=== PATIENT | female | born 1980 | race American Indian/Alaskan Native ===

== ENCOUNTER 2021-02-07 13:23 | Inpatient (IN) | payer MEDICAID ==
[2021-02-07] MEDS ORDERED: SODIUM CHLORIDE 0.9% 500 ML 500 ML IV ONE (13:42)
[2021-02-07] MEDS ORDERED: ACETAMINOPHEN 500 MG TAB PO STA (13:42)
[2021-02-07 14:19] LABS: Basophils % (Auto) 0.1 % (0.0-1.8); Eosinophils % (Auto) 0.1 % (0.0-4.3); Hemoglobin 11.9 gm/dl (10.1-14.3); Lymphocytes # (Auto) 0.7 K/mm3 (1.2-5.4); Lymphocytes % (Auto) 14.1 % (13.4-35.0); Mean Corpuscular HGB Conc 34 % (30-34); Mean Corpuscular Volume 95 fl (79-97); Monocytes # (Auto) 0.7 K/mm3 (0.0-0.8); Monocytes % (Auto) 13.4 % (0.0-7.3); Platelet Count 331 K/mm3 (140-440); Red Blood Count 3.68 M/mm3 (3.65-5.03); Red Cell Distribution Width 18.3 % (13.2-15.2)
[2021-02-07] MEDS ORDERED: CEFEPIME/NS 2 GM/100 ML 2 GM/100 ML BAG IV ONE (14:19)
[2021-02-07] MEDS ORDERED: dexAMETHasone 4 MG/ML VIAL IV ONE (14:23)
[2021-02-07 14:30] LABS: INR 1.01 (0.87-1.13)
--- NOTE | 2021-02-07 14:35 | Emergency Department Report ---
ED General Adult HPI - General Chief complaint: Dyspnea/Respdistress Stated complaint: PNEMONIA Time Seen by Provider: 02/07/21 14:13 Source: patient, family Mode of arrival: Wheelchair Limitations: Physical Limitation - History of Present Illness Initial comments: Patient presents to the emergency department the chief complaint increased shortness of breath after being diagnosed with Covid on Wednesday. Patient states that what she received her Covid diagnosis a CAT scan was ordered by the physician which showed that she had pneumonia. Patient states that over the last week her symptoms have progressively become worse to the point that she cannot walk short distances without being short of breath. Patient is in moderate respiratory distress as I am obtaining the history. Patient's O2 sats 89% on room air placed on 2 L nasal cannula. Patient is not able to speak in complete sentences due to respiratory distress -: Gradual Severity scale (0 -10): 8 Quality: aching Consistency: constant Improves with: none Worsens with: movement Associated Symptoms: denies other symptoms Treatments Prior to Arrival: none - Related Data Home Medications Medication Instructions Recorded Confirmed Last Taken Pnv,Calcium 72/Iron,Carb/Folic 1 tab PO QDAY 01/22/14 01/22/14 01/20/14 [ Plus Iron Tablet] Allergies Allergy/AdvReac Type Severity Reaction Status Date / Time No Known Allergies Allergy Verified 01/20/14 08:58 ED Review of Systems ROS: Stated complaint: PNEMONIA Other details as noted in HPI Comment: All other systems reviewed and negative Constitutional: denies: chills, fever Eyes: denies: eye pain, eye discharge, vision change ENT: denies: ear pain, throat pain Respiratory: shortness of breath. denies: cough, wheezing Cardiovascular: denies: chest pain, palpitations Endocrine: no symptoms reported Gastrointestinal: denies: abdominal pain, nausea, diarrhea Genitourinary: denies: urgency, dysuria, discharge Musculoskeletal: denies: back pain, joint swelling, arthralgia Skin: denies: rash, lesions Neurological: denies: headache, weakness, paresthesias Psychiatric: denies: anxiety, depression Hematological/Lymphatic: denies: easy bleeding, easy bruising ED Past Medical Hx - Past Medical History Previous Medical History?: No Hx Hypertension: No Hx Congestive Heart Failure: No Hx Diabetes: No Hx Deep Vein Thrombosis: No Hx Renal Disease: No Hx Sickle Cell Disease: No Hx Seizures: No Hx Asthma: No Hx COPD: No Hx HIV: No - Surgical History Past Surgical History?: No - Social History Smoking Status: Unknown if ever smoked - Medications Home Medications: Home Medications Medication Instructions Recorded Confirmed Last Taken Type Pnv,Calcium 72/Iron,Carb/Folic 1 tab PO QDAY 01/22/14 01/22/14 01/20/14 History [ Plus Iron Tablet] ED Physical Exam - General Limitations: Physical Limitation General appearance: alert, in distress - Head Head exam: Present: atraumatic, normocephalic - Eye Eye exam: Present: normal appearance - ENT ENT exam: Present: mucous membranes moist - Neck Neck exam: Present: normal inspection - Respiratory Respiratory exam: Present: respiratory distress, rales, accessory muscle use, decreased breath sounds - Cardiovascular Cardiovascular Exam: Present: normal rhythm, tachycardia. Absent: systolic murmur, diastolic murmur, rubs, gallop - GI/Abdominal GI/Abdominal exam: Present: soft, normal bowel sounds. Absent: distended, tenderness - Extremities Exam Extremities exam: Present: normal inspection - Back Exam Back exam: Present: normal inspection - Neurological Exam Neurological exam: Present: alert, oriented X3, CN II-XII intact - Psychiatric Psychiatric exam: Present: normal affect, normal mood - Skin Skin exam: Present: warm, dry, intact, normal color. Absent: rash ED Course Vital Signs 02/07/21 02/07/21 02/07/21 13:28 13:53 13:58 Temperature 103.0 F H Pulse Rate 140 H Respiratory 22 18 Rate Blood Pressure 110/64 110/73 O2 Sat by Pulse 90 Oximetry 02/07/21 02/07/21 02/07/21 14:01 14:15 14:19 Temperature 103 F H Pulse Rate 134 H 128 H 135 H Respiratory 51 H 31 H 30 H Rate Blood Pressure 110/73 106/67 107/64 O2 Sat by Pulse 96 91 89 Oximetry 02/07/21 02/07/21 02/07/21 14:31 14:45 15:01 Temperature Pulse Rate 123 H 119 H 116 H Respiratory 37 H 19 20 Rate Blood Pressure 107/64 114/72 114/70 O2 Sat by Pulse 97 97 97 Oximetry 02/07/21 02/07/21 02/07/21 15:15 15:31 15:36 Temperature Pulse Rate 116 H 114 H Respiratory 31 H 25 H Rate Blood Pressure 114/70 100/63 O2 Sat by Pulse 95 98 96 Oximetry ED Medical Decision Making - Lab Data Result diagrams: 02/07/21 14:07 02/07/21 14:07 Lab Results 02/07/21 02/07/21 02/07/21 Range/Units 14:07 14:07 14:07 WBC 5.0 (4.5-11.0) K/mm3 RBC 3.68 (3.65-5.03) M/mm3 Hgb 11.9 (10.1-14.3) gm/dl Hct 35.0 (30.3-42.9) % MCV 95 (79-97) fl MCH 32 (28-32) pg MCHC 34 (30-34) % RDW 18.3 H (13.2-15.2) % Plt Count 331 (140-440) K/mm3 Lymph % (Auto) 14.1 (13.4-35.0) % [place] % (Auto) 13.4 H (0.0-7.3) % Eos % (Auto) 0.1 (0.0-4.3) % Baso % (Auto) 0.1 (0.0-1.8) % Lymph # (Auto) 0.7 L (1.2-5.4) K/mm3 [place] # (Auto) 0.7 (0.0-0.8) K/mm3 Eos # (Auto) 0.0 (0.0-0.4) K/mm3 Baso # (Auto) 0.0 (0.0-0.1) K/mm3 Seg Neutrophils % 72.3 H (40.0-70.0) % Seg Neutrophils # 3.6 (1.8-7.7) K/mm3 PT 13.8 (12.2-14.9) Sec. INR 1.01 (0.87-1.13) ABG pH (7.320-7.450) POC ABG pCO2 (32.0-48.0) mmHg POC ABG pO2 (83-108) mmHg POC ABG HCO3 ABG O2 Saturation (0-100) POC ABG Base Excess ABG Hemoglobin (12.0-17.5) ABG Oxyhemoglobin (94-98) ABG Methemoglobin (0.0-1.5) ABG Sodium (136.0-145.0) mmol/L ABG Potassium (3.40-4.50) mmol/L ABG Chloride (98-107) mmol/L ABG Glucose (65-95) mg/dL VBG pH (7.320-7.420) Carboxyhemoglobin (0.5-1.5) FiO2 % Sodium 139 (137-145) mmol/L Potassium 4.1 (3.6-5.0) mmol/L Chloride 101.9 (98-107) mmol/L Carbon Dioxide 23 (22-30) mmol/L Anion Gap 18 mmol/L BUN 29 H (7-17) mg/dL Creatinine 1.4 H (0.6-1.2) mg/dL Estimated GFR 51 ml/min BUN/Creatinine Ratio 21 % Glucose 119 H (65-100) mg/dL Lactic Acid (0.7-2.0) mmol/L Calcium 9.0 (8.4-10.2) mg/dL Total Bilirubin 0.30 (0.1-1.2) mg/dL AST 40 (5-40) units/L ALT 16 (7-56) units/L Alkaline Phosphatase 73 (35-129) units/L Total Protein 7.7 (6.3-8.2) g/dL Albumin 3.7 L (3.9-5) g/dL Albumin/Globulin Ratio 0.9 % HCG, Qual (Negative) Arterial Blood Glucose (65-95) mg/dL 02/07/21 02/07/21 02/07/21 Range/Units 14:07 14:07 14:07 WBC (4.5-11.0) K/mm3 RBC (3.65-5.03) M/mm3 Hgb (10.1-14.3) gm/dl Hct (30.3-42.9) % MCV (79-97) fl MCH (28-32) pg MCHC (30-34) % RDW (13.2-15.2) % Plt Count (140-440) K/mm3 Lymph % (Auto) (13.4-35.0) % [place] % (Auto) (0.0-7.3) % Eos % (Auto) (0.0-4.3) % Baso % (Auto) (0.0-1.8) % Lymph # (Auto) (1.2-5.4) K/mm3 [place] # (Auto) (0.0-0.8) K/mm3 Eos # (Auto) (0.0-0.4) K/mm3 Baso # (Auto) (0.0-0.1) K/mm3 Seg Neutrophils % (40.0-70.0) % Seg Neutrophils # (1.8-7.7) K/mm3 PT (12.2-14.9) Sec. INR (0.87-1.13) ABG pH (7.320-7.450) POC ABG pCO2 (32.0-48.0) mmHg POC ABG pO2 (83-108) mmHg POC ABG HCO3 ABG O2 Saturation (0-100) POC ABG Base Excess ABG Hemoglobin (12.0-17.5) ABG Oxyhemoglobin (94-98) ABG Methemoglobin (0.0-1.5) ABG Sodium (136.0-145.0) mmol/L ABG Potassium (3.40-4.50) mmol/L ABG Chloride (98-107) mmol/L ABG Glucose (65-95) mg/dL VBG pH 7.465 H (7.320-7.420) Carboxyhemoglobin (0.5-1.5) FiO2 % Sodium (137-145) mmol/L Potassium (3.6-5.0) mmol/L Chloride (98-107) mmol/L Carbon Dioxide (22-30) mmol/L Anion Gap mmol/L BUN (7-17) mg/dL Creatinine (0.6-1.2) mg/dL Estimated GFR ml/min BUN/Creatinine Ratio % Glucose (65-100) mg/dL Lactic Acid 1.10 (0.7-2.0) mmol/L Calcium (8.4-10.2) mg/dL Total Bilirubin (0.1-1.2) mg/dL AST (5-40) units/L ALT (7-56) units/L Alkaline Phosphatase (35-129) units/L Total Protein (6.3-8.2) g/dL Albumin (3.9-5) g/dL Albumin/Globulin Ratio % HCG, Qual Negative (Negative) Arterial Blood Glucose (65-95) mg/dL 08/06/21 Range/Units 14:47 WBC (4.5-11.0) K/mm3 RBC (3.65-5.03) M/mm3 Hgb (10.1-14.3) gm/dl Hct (30.3-42.9) % MCV (79-97) fl MCH (28-32) pg MCHC (30-34) % RDW (13.2-15.2) % Plt Count (140-440) K/mm3 Lymph % (Auto) (13.4-35.0) % [place] % (Auto) (0.0-7.3) % Eos % (Auto) (0.0-4.3) % Baso % (Auto) (0.0-1.8) % Lymph # (Auto) (1.2-5.4) K/mm3 [place] # (Auto) (0.0-0.8) K/mm3 Eos # (Auto) (0.0-0.4) K/mm3 Baso # (Auto) (0.0-0.1) K/mm3 Seg Neutrophils % (40.0-70.0) % Seg Neutrophils # (1.8-7.7) K/mm3 PT (12.2-14.9) Sec. INR (0.87-1.13) ABG pH 7.437 (7.320-7.450) POC ABG pCO2 30.7 L (32.0-48.0) mmHg POC ABG pO2 92.6 (83-108) mmHg POC ABG HCO3 20.2 ABG O2 Saturation 96.6 (0-100) POC ABG Base Excess -3.3 ABG Hemoglobin 9.5 L (12.0-17.5) ABG Oxyhemoglobin 96.0 (94-98) ABG Methemoglobin 0.3 (0.0-1.5) ABG Sodium 139.4 (136.0-145.0) mmol/L ABG Potassium 3.7 (3.40-4.50) mmol/L ABG Chloride 108.0 H (98-107) mmol/L ABG Glucose 115 H (65-95) mg/dL VBG pH (7.320-7.420) Carboxyhemoglobin 0.3 L (0.5-1.5) FiO2 % 32.0 Sodium (137-145) mmol/L Potassium (3.6-5.0) mmol/L Chloride (98-107) mmol/L Carbon Dioxide (22-30) mmol/L Anion Gap mmol/L BUN (7-17) mg/dL Creatinine (0.6-1.2) mg/dL Estimated GFR ml/min BUN/Creatinine Ratio % Glucose (65-100) mg/dL Lactic Acid (0.7-2.0) mmol/L Calcium (8.4-10.2) mg/dL Total Bilirubin (0.1-1.2) mg/dL AST (5-40) units/L ALT (7-56) units/L Alkaline Phosphatase (35-129) units/L Total Protein (6.3-8.2) g/dL Albumin (3.9-5) g/dL Albumin/Globulin Ratio % HCG, Qual (Negative) Arterial Blood Glucose 115 H (65-95) mg/dL - EKG Data -: EKG Interpreted by Me EKG shows normal: sinus rhythm Rate: tachycardia - Radiology Data Radiology results: report reviewed - Medical Decision Making Patient placed on high flow O2 Patient given IV antibiotics Patient given IV steroids Critical Care Time: Yes Critical care time in (mins) excluding proc time.: 35 Critical care attestation.: If time is entered above; I have spent that time in minutes in the direct care of this critically ill patient, excluding procedure time. ED Disposition Clinical Impression: Pneumonia due to COVID-19 virus Disposition: DC-09 OP ADMIT IP TO THIS HOSP Is pt being admited?: Yes Does the pt Need Aspirin: No Condition: Fair Instructions: Bacterial Pneumonia (ED)
[2021-02-07 14:37] LABS: Albumin 3.7 g/dL (3.9-5)
--- NOTE | 2021-02-07 15:21 | XRay Report ---
XR chest 1V ap INDICATION / CLINICAL INFORMATION: possible Sepsis. COMPARISON: None available. FINDINGS: SUPPORT DEVICES: None. HEART /PULMONARY VASCULATURE: No significant abnormality. LUNGS / PLEURA: Dense airspace consolidation present within the right mid to lower lung with mild air space disease also seen in the left lower lobe. No sizable pleural effusion. No pneumothorax. ADDITIONAL FINDINGS: No significant additional findings. IMPRESSION: Bibasilar airspace opacities, greater on the right, compatible with pneumonia. Signer Name: Miguel Angel Figueroa MD Signed: 02/07/2021 3:16 PM Workstation Name: [id number]
--- NOTE | 2021-02-07 15:55 | History and Physical Report ---
History of Present Illness Chief complaint: I just cannot breathe History of present illness: 40 YO Female with No PMH presents to ED for evaluation. Pt reports "I just cannot breathe". Patient states that she has experienced shortness of breath over the past 5 days with progressively worsening symptoms over the same timeframe. Patient states that she was diagnosed with coronavirus on Wednesday. Patient knowledges worsening symptoms over the past several days. Patient transported to [facility] via private vehicle for further care and evaluation of the aforementioned symptoms. Patient acknowledges fatigue, malaise, body aches, shortness of breath, subjective fever, as well as decreased exercise tolerance. Patient is unable to speak in complete sentences due to shortness of breath. Patient is tripoding, using accessory muscles to breathe. The patient was seen and evaluated in the emergency department. All lab and imaging studies reviewed. Patient found to have a pulse oximetry of 84% on exertion which is consistent with acute hypoxemic respiratory failure. Chest x-ray revealed bilateral pneumonia. Patient admitted to medical floor and initiated on pneumonia protocol as well as coronavirus protocol. Patient treated with high flow supplemental oxygen with mild improvement in symptoms. Infectious disease team consulted in ED. Pulmonary team consulted in ED. Patient use head gestures chest pain, palpitation, skin rash, recent ill contacts, known exposure to COVID-19. No prior admission for review. No medication listed at time of admission for reconciliation. Past History Past Medical History: No medical history, other (Reviewed) Past Surgical History: No surgical history, Other (Reviewed) Social history: single. denies: smoking, alcohol abuse, prescription drug abuse Family history: hypertension Medications and Allergies Allergies Allergy/AdvReac Type Severity Reaction Status Date / Time No Known Allergies Allergy Verified 01/20/14 08:58 Home Medications Medication Instructions Recorded Confirmed Last Taken Type Pnv,Calcium 72/Iron,Carb/Folic 1 tab PO QDAY 01/22/14 01/22/14 01/20/14 History [ Plus Iron Tablet] Review of Systems Constitutional: fever, fatigue, weakness, malaise, no weight loss, no weight gain Ears, nose, mouth and throat: no ear pain, no ear discharge, no nasal congestion Breasts: no change in shape, no swelling, no mass Cardiovascular: shortness of breath, no chest pain, no orthopnea, no palpitations Respiratory: cough, excessive sputum, shortness of breath, no hemoptysis Gastrointestinal: no abdominal pain, no nausea, no vomiting, no diarrhea Genitourinary Female: no pelvic pain, no flank pain, no menorrhagia, no dysuria, no urinary frequency, no urgency Rectal: no pain, no incontinence, no bleeding Musculoskeletal: no neck stiffness, no neck pain, no shooting arm pain, no arm numbness/tingling, no low back pain Integumentary: no rash, no pruritis, no redness, no sores, no wounds Neurological: no transient paralysis, no paralysis, no weakness, no parathesias, no numbness Psychiatric: no anxiety, no memory loss, no change in sleep habits, no sleep disturbances, no insomnia, no hypersomnia, no change in appetite Endocrine: no cold intolerance, no heat intolerance, no polyphagia, no excessive thirst, no polydipsia, no polyuria Hematologic/Lymphatic: no easy bruising, no easy bleeding, no lymphadenopathy Allergic/Immunologic: no urticaria, no allergic rhinitis, no wheezing, no persistent infections Exam - Constitutional Vitals: Temp Pulse Resp BP Pulse Ox 103 F H 114 H 25 H 100/63 96 02/07/21 14:19 02/07/21 15:31 02/07/21 15:31 02/07/21 15:31 02/07/21 15:36 General appearance: Present: mild distress - EENT Eyes: Present: PERRL ENT: hearing intact, clear oral mucosa - Neck Neck: Present: supple, normal ROM - Respiratory Respiratory effort: labored, accessory muscle use, stridor Respiratory: bilateral: diminished, rhonchi - Cardiovascular Heart Sounds: Present: S1 & S2. Absent: rub, click - Extremities Extremities: pulses symmetrical, No edema Peripheral Pulses: within normal limits - Abdominal General gastrointestinal: Present: soft, non-tender, non-distended, normal bowel sounds Female genitourinary: Present: normal - Integumentary Integumentary: Present: clear, warm, dry - Musculoskeletal Musculoskeletal: gait normal, strength equal bilaterally - Psychiatric Psychiatric: appropriate mood/affect, intact judgment & insight - Neurologic Neurologic: CNII-XII intact, moves all extremities Results - Labs CBC & Chem 7: 02/07/21 14:07 02/07/21 14:07 Labs: Abnormal lab results 02/07/21 02/07/21 02/07/21 Range/Units 14:07 14:07 14:07 RDW 18.3 H (13.2-15.2) % [place] % (Auto) 13.4 H (0.0-7.3) % Lymph # (Auto) 0.7 L (1.2-5.4) K/mm3 Seg Neutrophils % 72.3 H (40.0-70.0) % POC ABG pCO2 (32.0-48.0) mmHg ABG Hemoglobin (12.0-17.5) ABG Chloride (98-107) mmol/L ABG Glucose (65-95) mg/dL VBG pH 7.465 H (7.320-7.420) Carboxyhemoglobin (0.5-1.5) BUN 29 H (7-17) mg/dL Creatinine 1.4 H (0.6-1.2) mg/dL Glucose 119 H (65-100) mg/dL Albumin 3.7 L (3.9-5) g/dL Arterial Blood Glucose (65-95) mg/dL 02/07/21 Range/Units 14:47 RDW (13.2-15.2) % [place] % (Auto) (0.0-7.3) % Lymph # (Auto) (1.2-5.4) K/mm3 Seg Neutrophils % (40.0-70.0) % POC ABG pCO2 30.7 L (32.0-48.0) mmHg ABG Hemoglobin 9.5 L (12.0-17.5) ABG Chloride 108.0 H (98-107) mmol/L ABG Glucose 115 H (65-95) mg/dL VBG pH (7.320-7.420) Carboxyhemoglobin 0.3 L (0.5-1.5) BUN (7-17) mg/dL Creatinine (0.6-1.2) mg/dL Glucose (65-100) mg/dL Albumin (3.9-5) g/dL Arterial Blood Glucose 115 H (65-95) mg/dL Assessment and Plan - Patient Problems (1) Acute hypoxemic respiratory failure Current Visit: Yes Status: Acute Plan to address problem: Chest x-ray, high flow supplemental oxygen, nebulizer therapy, pulse oximetry, noninvasive positive pressure ventilation as clinically indicated if patient is unable to maintain pulse oximetry on high flow submental oxygen. Pulmonary team consulted. (2) Pneumonia Current Visit: Yes Status: Acute Plan to address problem: Pneumonia protocol: Chest x-ray, CBC, CMP, IV antibiotic therapy, supplemental oxygen, pulse oximetry, nebulizer therapy. (3) Suspected 2019 novel coronavirus infection Current Visit: Yes Status: Acute Plan to address problem: Coronavirus protocol: IV antibiotic therapy, IV steroid therapy, supplemental oxygen, pulse oximetry, vitamin C therapy, vitamin D therapy, zinc therapy, prophylactic anticoagulation (4) Acute kidney injury (MAUREEN) with acute tubular necrosis (ATN) Current Visit: Yes Status: Acute Plan to address problem: BMP, IV fluid resuscitation therapy as clinically indicated, repeat BMP in a.m., monitor urine output every shift (5) DVT prophylaxis Current Visit: Yes Status: Acute Plan to address problem: SCD to bilateral lower extremities while in bed, prophylactic anticoagulation
[2021-02-07] MEDS: AZITHROMYCIN/NS 500 MG/250 ML 500 MG/250 ML BAG IV SCH ×2 (16:25→18:00)
[2021-02-07] MEDS: cefTRIAXone/NS 2 GM/100 ML 2 GM/100 ML BAG IV SCH ×2 (16:25→18:02)
[2021-02-07] MEDS ORDERED: ONDANSETRON 4 MG/2 ML INJ IV PRN (16:30)
[2021-02-07] MEDS ORDERED: HYDROmorphone 1 MG/1 ML INJ IV PRN (16:30)
[2021-02-07] MEDS ORDERED: ACETAMINOPHEN 325 MG TAB PO PRN (16:30)
[2021-02-07] MEDS ORDERED: ALBUTEROL 2.5 MG/3 ML NEBU IH PRN (17:00)
[2021-02-07] MEDS: CHOLECALCIFEROL (VIT D3) 1000 UNIT (25 mcg) TAB PO SCH (18:07)
[2021-02-07] MEDS: methylPREDNISolone Sod Succinate 40 MG/1 ML INJ IV SCH (22:13)
[2021-02-07] MEDS: ASCORBIC ACID 500 MG TAB PO SCH (22:14)
[2021-02-07] MEDS: ZINC SULFATE 220 MG CAP PO SCH (22:14)
[2021-02-08 05:11] LABS: Hematocrit 34.6 % (30.3-42.9); Hemoglobin 11.4 gm/dl (10.1-14.3); Mean Corpuscular HGB Conc 33 % (30-34); Mean Corpuscular Volume 96 fl (79-97); Platelet Count 280 K/mm3 (140-440); Red Blood Count 3.59 M/mm3 (3.65-5.03); Red Cell Distribution Width 18.3 % (13.2-15.2)
[2021-02-08 05:33] LABS: Alanine Aminotransferase 17 units/L (7-56); Albumin 3.3 g/dL (3.9-5); BUN/Creatinine Ratio 31; Blood Urea Nitrogen 25 mg/dL (7-17); Calcium 8.3 mg/dL (8.4-10.2); Hemolysis Index 43
[2021-02-08] MEDS: methylPREDNISolone Sod Succinate 40 MG/1 ML INJ IV SCH (05:39)
[2021-02-08 06:59] LABS: Anisocytosis 1+; Platelet Estimate Consistent w Auto; Total Cells Counted 100
--- NOTE | 2021-02-08 09:22 | Consultation ---
History of Present Illness History of present illness: pt with no signif pmhx who comes in shortness of breath with pleurisy. She was in her usoh until yesterday and had sob. She came to er in distress started on o2 and meds. She feels better but still short of breath at rest Past History Past Medical History: No medical history, other (Reviewed) Past Surgical History: No surgical history, Other (Reviewed) Social history: single. denies: smoking, alcohol abuse, prescription drug abuse Family history: hypertension Medications and Allergies Allergies Allergy/AdvReac Type Severity Reaction Status Date / Time No Known Allergies Allergy Verified 01/20/14 08:58 Home Medications Medication Instructions Recorded Confirmed Last Taken Type Pnv,Calcium 72/Iron,Carb/Folic 1 tab PO QDAY 01/22/14 02/07/21 01/20/14 History [ Plus Iron Tablet] Active Meds: Active Medications Acetaminophen (Acetaminophen 325 Mg Tab) 650 mg PO Q4H PRN PRN Reason: Pain MILD(1-3)/Fever >100.5/TORRES Albuterol (Albuterol 2.5 Mg/3 Ml Nebu) 2.5 mg IH Q4HRT PRN PRN Reason: Shortness Of Breath Ascorbic Acid (Ascorbic Acid 500 Mg Tab) 500 mg PO BID [facility] Last Admin: 02/07/21 22:14 Dose: 500 mg Documented by: Cholecalciferol (Cholecalciferol (Vit D3) 1000 Unit (25 Mcg) Tab) 1,000 unit PO QDAY [facility] Last Admin: 02/07/21 18:07 Dose: 1,000 unit Documented by: Dexamethasone (Dexamethasone 4 Mg/Ml Vial) 6 mg IV Q24HR FOSTER Stop: 02/16/21 10:01 Hydromorphone HCl (Hydromorphone 1 Mg/1 Ml Inj) 0.5 mg IV Q12H PRN PRN Reason: Pain , Severe (7-10) Ceftriaxone Sodium (Rocephin/Ns 2 Gm/100 Ml) 2 gm in 100 mls @ 200 mls/hr IV Q24H FOSTER; Protocol Stop: 02/11/21 17:29 Last Infusion: 02/07/21 19:44 Dose: Infused Documented by: Azithromycin (Zithromax/Ns) 500 mg in 250 mls @ 250 mls/hr IV Q24H [facility]; Protocol Stop: 02/11/21 17:29 Last Infusion: 02/07/21 19:45 Dose: Infused Documented by: Ondansetron HCl (Ondansetron 4 Mg/2 Ml Inj) 4 mg IV Q8H PRN PRN Reason: Nausea And Vomiting Oxycodone/Acetaminophen (Oxycodone /Acetaminophen 5-325mg Tab) 1 tab PO Q12H PRN PRN Reason: Pain, Moderate (4-6) Sodium Chloride (Sodium Chloride 0.9% 10 Ml Flush Syringe) 10 ml IV BID [facility] Last Admin: 02/07/21 22:13 Dose: 10 ml Documented by: Sodium Chloride (Sodium Chloride 0.9% 10 Ml Flush Syringe) 10 ml IV PRN PRN PRN Reason: LINE FLUSH Zinc Sulfate (Zinc Sulfate 220 Mg Cap) 220 mg PO BID [facility] Last Admin: 02/07/21 22:14 Dose: 220 mg Documented by: Review of Systems Constitutional: fatigue, weakness, poor appetite Respiratory: shortness of breath, dyspnea on exertion Physical Examination Vital signs: Vital Signs Temp Pulse Resp BP Pulse Ox 103.0 F H 140 H 22 110/64 90 02/07/21 13:28 02/07/21 13:28 02/07/21 13:28 02/07/21 13:28 02/07/21 13:28 General appearance: no acute distress Eyes: non-icteric ENT: oropharynx dry Neck: supple Effort: normal Ascultation: Bilateral: diminished breath sounds Cardiovascular: regular rate and rhythm Gastrointestinal: normoactive bowel sounds, soft, non-tender Integumentary: normal Extremities: no cyanosis Results - Laboratory Findings CBC and BMP: 02/08/21 04:37 02/08/21 04:37 ABG ABG pH 7.437 (7.320-7.450) 02/07/21 14:47 POC ABG pCO2 30.7 mmHg (32.0-48.0) L 02/07/21 14:47 POC ABG pO2 92.6 mmHg (83-108) 02/07/21 14:47 POC ABG HCO3 20.2 02/07/21 14:47 ABG O2 Saturation 96.6 (0-100) 02/07/21 14:47 PT/INR, D-dimer PT 13.8 Sec. (12.2-14.9) 02/07/21 14:07 INR 1.01 (0.87-1.13) 02/07/21 14:07 Abnormal lab findings: Abnormal Labs 02/07/21 02/07/21 02/07/21 14:07 14:07 14:07 WBC RBC RDW 18.3 H [place] % (Auto) 13.4 H Lymph # (Auto) 0.7 L Seg Neutrophils % 72.3 H Seg Neutrophils # Man Lymphocytes # (Manual) POC ABG pCO2 ABG Hemoglobin ABG Chloride ABG Glucose VBG pH 7.465 H Carboxyhemoglobin Carbon Dioxide BUN 29 H Creatinine 1.4 H Glucose 119 H Calcium Albumin 3.7 L Arterial Blood Glucose 02/07/21 02/08/21 02/08/21 14:47 04:37 04:37 WBC 1.9 L* RBC 3.59 L RDW 18.3 H [place] % (Auto) Lymph # (Auto) Seg Neutrophils % Seg Neutrophils # Man 1.3 L Lymphocytes # (Manual) 0.5 L POC ABG pCO2 30.7 L ABG Hemoglobin 9.5 L ABG Chloride 108.0 H ABG Glucose 115 H VBG pH Carboxyhemoglobin 0.3 L Carbon Dioxide 20 L BUN 25 H Creatinine Glucose 216 H Calcium 8.3 L Albumin 3.3 L Arterial Blood Glucose 115 H - Diagnostic Findings Chest x-ray: report reviewed, image reviewed Assessment and Plan - Patient Problems (1) Acute hypoxemic respiratory failure Current Visit: Yes Status: Acute (2) Acute kidney injury (MAUREEN) with acute tubular necrosis (ATN) Current Visit: Yes Status: Acute (3) Pneumonia Current Visit: Yes Status: Acute (4) Pneumonia due to COVID-19 virus Current Visit: Yes Status: Acute
[2021-02-08 09:58] LABS: Bacteria,Urine 1+ /HPF (Negative); Bilirubin,Urine NEG (Negative); Blood,Urine LG (Negative); Color,Urine Amber (Yellow); Urobilinogen,Urine < 2.0 mg/dL (<2.0)
[2021-02-08] MEDS ORDERED: CHOLECALCIFEROL (VIT D3) 400 UNIT TAB PO SCH (10:00)
[2021-02-08] MEDS: dexAMETHasone 4 MG/ML VIAL IV SCH (11:34)
[2021-02-08] MEDS: ZINC SULFATE 220 MG CAP PO SCH ×2 (11:34→22:56)
[2021-02-08] MEDS: CHOLECALCIFEROL (VIT D3) 1000 UNIT (25 mcg) TAB PO SCH (11:34)
--- NOTE | 2021-02-08 15:06 | Progress Note ---
Assessment and Plan 35-year-old -[place] female who recently diagnosed with COVID-19 presented to the hospital with shortness of breath associated with fatigue malaise and fever. Assessment and plan: -- Acute hypoxemic respiratory failure Due to COVID-19 pneumonia Continue high flow O2 and wean off as tolerated Schedule nebulizer breathing treatment and empiric steroid Pulmonology on board --COVID-19 pneumonia -CXR shows patchy parenchymal disease which represent atypical pneumonia -S/p dexamethasone, azithromycin and cefepime in the ED -Placed on dexamethasone for total 10 days and remdesivir total 5 days -Infectious disease consulted, appreciate recommendations -Droplet/contact isolation -Continue SPO2 monitoring -Supplemental oxygen as needed -Pulmonary hygiene -Prone to sleep -Vitamin C, vitamin D, zinc -Anticoagulation per protocol -Lasix IV as needed to prevent pulmonary edema --Acute kidney injury (MAUREEN) with vasomotor nephropathy Creatinine was 1.4 on admission now resolved with IV fluid Continue to follow renal function -- DVT prophylaxis SCD to bilateral lower extremities while in bed, prophylactic anticoagulation per protocol Daily clinical course: 02/09/21: Patient tested positive for COVID-19, will initiate remdesivir for 5 days and dexamethasone for 10 days, ID consulted, pulmonology consulted. Continue supportive care, follow COVID-19 protocol and inflammatory markers to assess disease progression/improvement Subjective Date of service: 02/08/21 Interval history: Patient seen and examined. Medical records and medication list reviewed. No acute event overnight noted by the RN. Patient on high flow O2. Patient is tolerating diet. Covid test is positive Discussed plan of care at bedside with patient. Objective - Exam Narrative Exam: Limited physical exam due to COVID-19 pandemic to minimize transmission of the disease and to preserve PPE. Vital reviewed and stable. GENERAL: well-developed well-nourished -[place] female lying on bed appeared to be in no discomfort. HEENT: Normocephalic. Atraumatic. NECK: Supple. CHEST/LUNGS: breathing on high flow O2 HEART/CARDIOVASCULAR: Heart rate stable on telemetry ABDOMEN: Visibly not distended SKIN: There is no rash NEURO: No focal motor deficit. Follows command. MUSCULOSKELETAL: No joint effusion EXTRIMITY: No swelling, no cyanosis or clubbing. PSYCH: Cooperative. - Constitutional Vitals: Vital Signs - 12hr 02/08/21 02/08/21 02/08/21 04:01 05:01 06:01 Pulse Rate 66 98 H 62 Respiratory 18 22 26 H Rate Blood Pressure 117/84 108/79 108/77 O2 Sat by Pulse 93 98 99 Oximetry 02/08/21 02/08/21 02/08/21 07:01 08:00 08:01 Pulse Rate 72 62 Respiratory 25 H 26 H Rate Blood Pressure 108/78 112/77 O2 Sat by Pulse 98 98 98 Oximetry 02/08/21 02/08/21 02/08/21 09:01 10:01 11:01 Pulse Rate 63 67 74 Respiratory 30 H 32 H 20 Rate Blood Pressure 117/85 114/83 109/83 O2 Sat by Pulse 97 96 96 Oximetry 02/08/21 02/08/21 02/08/21 12:01 13:01 14:01 Pulse Rate 84 74 84 Respiratory 22 32 H 30 H Rate Blood Pressure 110/79 116/83 111/80 O2 Sat by Pulse 94 94 93 Oximetry - Labs CBC & Chem 7: 02/08/21 04:37 02/09/21 08:25 Labs: Abnormal lab results 02/07/21 02/08/21 02/08/21 Range/Units 14:47 04:37 04:37 WBC 1.9 L* (4.5-11.0) K/mm3 RBC 3.59 L (3.65-5.03) M/mm3 RDW 18.3 H (13.2-15.2) % Seg Neutrophils # Man 1.3 L (1.8-7.7) K/mm3 Lymphocytes # (Manual) 0.5 L (1.2-5.4) K/mm3 POC ABG pCO2 30.7 L (32.0-48.0) mmHg ABG Hemoglobin 9.5 L (12.0-17.5) ABG Chloride 108.0 H (98-107) mmol/L ABG Glucose 115 H (65-95) mg/dL Carboxyhemoglobin 0.3 L (0.5-1.5) Carbon Dioxide 20 L (22-30) mmol/L BUN 25 H (7-17) mg/dL Glucose 216 H (65-100) mg/dL Calcium 8.3 L (8.4-10.2) mg/dL Albumin 3.3 L (3.9-5) g/dL Arterial Blood Glucose 115 H (65-95) mg/dL
[2021-02-08] MEDS: ASCORBIC ACID 500 MG TAB PO SCH ×2 (17:25→22:55)
[2021-02-08] MEDS: cefTRIAXone/NS 2 GM/100 ML 2 GM/100 ML BAG IV SCH (17:25)
[2021-02-08] MEDS: AZITHROMYCIN/NS 500 MG/250 ML 500 MG/250 ML BAG IV SCH (17:45)
[2021-02-08] MEDS: REMDESIVIR 200 MG in SODIUM CHLORIDE 0.9% 250ML 250 ML IV ONE ×2 (19:16→21:11)
[2021-02-08 19:28] LABS: Alanine Aminotransferase 16 units/L (7-56); Albumin 3.1 g/dL (3.9-5); Blood Urea Nitrogen 25 mg/dL (7-17); Calcium 8.9 mg/dL (8.4-10.2); Hemolysis Index 5
[2021-02-08 19:30] LABS: BUN/Creatinine Ratio 36
[2021-02-08] MEDS ORDERED: guaiFENesin 200 MG TAB PO PRN (21:21)
[2021-02-08] MEDS: SODIUM CHLORIDE 0.9% 50 ML IVPB IV SCH (22:40)
[2021-02-09] MEDS: oxyCODONE /ACETAMINOPHEN 5-325MG TAB PO PRN (01:40)
[2021-02-09 09:17] LABS: Alanine Aminotransferase 17 units/L (7-56); Albumin 3.1 g/dL (3.9-5); Blood Urea Nitrogen 23 mg/dL (7-17); Calcium 8.8 mg/dL (8.4-10.2); Hemolysis Index 3
[2021-02-09 09:23] LABS: BUN/Creatinine Ratio 38
--- NOTE | 2021-02-09 09:31 | Progress Note ---
Assessment and Plan - Patient Problems (1) Acute hypoxemic respiratory failure Current Visit: Yes Status: Acute (2) Acute kidney injury (MAUREEN) with acute tubular necrosis (ATN) Current Visit: Yes Status: Acute (3) Pneumonia Current Visit: Yes Status: Acute (4) Pneumonia due to COVID-19 virus Current Visit: Yes Status: Acute Objective Vital Signs - 12hr 02/08/21 02/08/21 02/08/21 21:35 22:00 22:27 Temperature 98.6 F Pulse Rate 75 Respiratory 22 Rate Blood Pressure 121/82 O2 Sat by Pulse 96 96 96 Oximetry 02/09/21 02/09/21 02/09/21 03:25 05:27 08:00 Temperature 98.8 F Pulse Rate 69 Respiratory 18 Rate Blood Pressure 103/69 O2 Sat by Pulse 97 95 97 Oximetry Constitutional: no acute distress Eyes: non-icteric ENT: oropharynx dry Neck: supple Effort: normal Ascultation: Bilateral: diminished breath sounds Cardiovascular: regular rate and rhythm Gastrointestinal: normoactive bowel sounds, soft, non-tender Integumentary: normal Extremities: no cyanosis CBC and BMP: 02/08/21 04:37 02/09/21 08:25 ABG, PT/INR, D-dimer: ABG ABG pH 7.437 (7.320-7.450) 02/07/21 14:47 POC ABG pCO2 30.7 mmHg (32.0-48.0) L 02/07/21 14:47 POC ABG pO2 92.6 mmHg (83-108) 02/07/21 14:47 POC ABG HCO3 20.2 02/07/21 14:47 ABG O2 Saturation 96.6 (0-100) 02/07/21 14:47 PT/INR, D-dimer PT 13.8 Sec. (12.2-14.9) 02/07/21 14:07 INR 1.01 (0.87-1.13) 02/07/21 14:07 Abnormal lab findings: Abnormal Labs 02/07/21 02/07/21 02/07/21 09:30 14:07 14:07 WBC RBC RDW 18.3 H [place] % (Auto) 13.4 H Lymph # (Auto) 0.7 L Seg Neutrophils % 72.3 H Seg Neutrophils # Man Lymphocytes # (Manual) POC ABG pCO2 ABG Hemoglobin ABG Chloride ABG Glucose VBG pH Carboxyhemoglobin Sodium Carbon Dioxide BUN 29 H Creatinine 1.4 H Glucose 119 H Calcium Albumin 3.7 L Arterial Blood Glucose Coronavirus (PCR) Positive A 02/07/21 02/07/21 02/08/21 14:07 14:47 04:37 WBC 1.9 L* RBC 3.59 L RDW 18.3 H [place] % (Auto) Lymph # (Auto) Seg Neutrophils % Seg Neutrophils # Man 1.3 L Lymphocytes # (Manual) 0.5 L POC ABG pCO2 30.7 L ABG Hemoglobin 9.5 L ABG Chloride 108.0 H ABG Glucose 115 H VBG pH 7.465 H Carboxyhemoglobin 0.3 L Sodium Carbon Dioxide BUN Creatinine Glucose Calcium Albumin Arterial Blood Glucose 115 H Coronavirus (PCR) 02/08/21 02/08/21 02/09/21 04:37 18:49 08:25 WBC RBC RDW [place] % (Auto) Lymph # (Auto) Seg Neutrophils % Seg Neutrophils # Man Lymphocytes # (Manual) POC ABG pCO2 ABG Hemoglobin ABG Chloride ABG Glucose VBG pH Carboxyhemoglobin Sodium 135 L Carbon Dioxide 20 L 21 L BUN 25 H 25 H 23 H Creatinine Glucose 216 H 155 H 133 H Calcium 8.3 L Albumin 3.3 L 3.1 L 3.1 L Arterial Blood Glucose Coronavirus (PCR)
--- NOTE | 2021-02-09 09:42 | Consultation ---
History of Present Illness - Reason for Consult Consult date: 02/09/21 - History of Present Illness 40-year-old female no past medical history presented to the hospital complaining of shortness of breath. This began approximately 5 days prior to admission and was progressively worse since onset. She notes being diagnosed with COVID-19 a few days prior to admission. She complains of associated fatigue, malaise, fevers. She is found to be hypoxic on presentation. Febrile to 103 with a white count 1.9. Normal renal function. Inflammatory markers. Covid positive. Currently on ceftriaxone azithromycin cultures no growth so far. On high flow nasal cannula Imaging personally reviewed: Chest x-ray: Basilar airspace opacities Review of systems: Deferred to reduce to the risk of transmission of COVID-19 Past History Past Medical History: No medical history, other (Reviewed) Past Surgical History: No surgical history, Other (Reviewed) Social history: single. denies: smoking, alcohol abuse, prescription drug abuse Family history: hypertension Medications and Allergies Allergies Allergy/AdvReac Type Severity Reaction Status Date / Time No Known Allergies Allergy Verified 01/20/14 08:58 Home Medications Medication Instructions Recorded Confirmed Last Taken Type Pnv,Calcium 72/Iron,Carb/Folic 1 tab PO QDAY 01/22/14 02/07/21 01/20/14 History [ Plus Iron Tablet] Active Meds: Active Medications Acetaminophen (Acetaminophen 325 Mg Tab) 650 mg PO Q4H PRN PRN Reason: Pain MILD(1-3)/Fever >100.5/TORRES Albuterol (Albuterol 2.5 Mg/3 Ml Nebu) 2.5 mg IH Q4HRT PRN PRN Reason: Shortness Of Breath Ascorbic Acid (Ascorbic Acid 500 Mg Tab) 500 mg PO BID [facility] Last Admin: 02/08/21 22:55 Dose: 500 mg Documented by: Cholecalciferol (Cholecalciferol (Vit D3) 1000 Unit (25 Mcg) Tab) 1,000 unit PO QDAY [facility] Last Admin: 02/08/21 11:34 Dose: 1,000 unit Documented by: Dexamethasone (Dexamethasone 4 Mg/Ml Vial) 6 mg IV Q24HR [facility] Stop: 02/16/21 10:01 Last Admin: 02/08/21 11:34 Dose: 6 mg Documented by: Guaifenesin (Guaifenesin 200 Mg Tab) 200 mg PO Q6H PRN PRN Reason: Cough Last Admin: 02/08/21 23:55 Dose: 200 mg Documented by: Hydromorphone HCl (Hydromorphone 1 Mg/1 Ml Inj) 0.5 mg IV Q12H PRN PRN Reason: Pain , Severe (7-10) Ceftriaxone Sodium (Rocephin/Ns 2 Gm/100 Ml) 2 gm in 100 mls @ 200 mls/hr IV Q24H [facility]; Protocol Stop: 02/11/21 17:29 Last Admin: 02/08/21 17:25 Dose: 100 mls/hr Documented by: Azithromycin (Zithromax/Ns) 500 mg in 250 mls @ 250 mls/hr IV Q24H [facility]; Protocol Stop: 02/11/21 17:29 Last Admin: 02/08/21 17:45 Dose: 250 mls/hr Documented by: REMDESIVIR 100 mg/ Sodium (Chloride) 250 mls @ 500 mls/hr IV Q24HR@2100 FOSTER Stop: 02/12/21 21:29 Ondansetron HCl (Ondansetron 4 Mg/2 Ml Inj) 4 mg IV Q8H PRN PRN Reason: Nausea And Vomiting Oxycodone/Acetaminophen (Oxycodone /Acetaminophen 5-325mg Tab) 1 tab PO Q12H PRN PRN Reason: Pain, Moderate (4-6) Last Admin: 02/09/21 01:40 Dose: 1 tab Documented by: Sodium Chloride (Sodium Chloride 0.9% 10 Ml Flush Syringe) 10 ml IV BID [facility] Last Admin: 02/08/21 22:56 Dose: 10 ml Documented by: Sodium Chloride (Sodium Chloride 0.9% 10 Ml Flush Syringe) 10 ml IV PRN PRN PRN Reason: LINE FLUSH Sodium Chloride (Sodium Chloride 0.9% 50 Ml Ivpb) 50 ml IV Q24HR@2100 FOSTER Stop: 02/12/21 21:01 Last Admin: 02/08/21 22:40 Dose: 50 ml Documented by: Zinc Sulfate (Zinc Sulfate 220 Mg Cap) 220 mg PO BID [facility] Last Admin: 02/08/21 22:56 Dose: 220 mg Documented by: Physical Examination - Physical Exam Narrative exam: Physical exam deferred to reduce risk of transmission of COVID-19. Please refer to primary team's note. - Constitutional Vitals: Vital Signs Temp Pulse Resp BP Pulse Ox 98.8 F 69 18 103/69 97 02/09/21 05:27 02/09/21 05:27 02/09/21 05:27 02/09/21 05:27 02/09/21 08:00 Temperature -Last 24 Hours Temperature 98.8 F Temperature 98.6 F Temperature 99.0 F Results - Labs CBC & Chem 7: 02/08/21 04:37 02/09/21 08:25 Labs: Abnormal lab results 02/07/21 02/08/21 02/09/21 Range/Units 09:30 18:49 08:25 Sodium 135 L (137-145) mmol/L Carbon Dioxide 21 L (22-30) mmol/L BUN 25 H 23 H (7-17) mg/dL Glucose 155 H 133 H (65-100) mg/dL Albumin 3.1 L 3.1 L (3.9-5) g/dL Coronavirus (PCR) Positive A (Negative) Assessment and Plan Cultures: Blood culture no growth Urine culture no growth Sputum culture Wound culture A/P: 40-year-old female no past medical history admitted with COVID-19 #Severe COVID-19 pneumonia: Patient presented with a week of symptoms, chest x- ray with diffuse bilateral infiltrates #Acute hypoxemic respiratory failure: Likely secondary to COVID-19 infection. Currently on high flow nasal cannula Recs: -Dexamethasone 6 mg IV/PO daily for 10 days -Remdesivir 200 mg IV q day x 1 followed by 100 mg IV q day x 4 days -Obtain q48-72h inflammatory markers - ferritin, Ddimer, CRP, LDH -Continue ceftriaxone 2 gm IV qday and azithromycin 500 mg PO qday, if procalcitonin <0.25 ng/mL stop antibiotics -Anticoagulation per hospital protocol -Proning as able Thank you for the consult, we will continue to follow. MD Dee [facility] O: [phone] F: [phone]
--- NOTE | 2021-02-09 09:59 | Progress Note ---
Assessment and Plan - Patient Problems (1) Acute hypoxemic respiratory failure Current Visit: Yes Status: Acute (2) Acute kidney injury (MAUREEN) with acute tubular necrosis (ATN) Current Visit: Yes Status: Acute (3) Pneumonia Current Visit: Yes Status: Acute (4) Pneumonia due to COVID-19 virus Current Visit: Yes Status: Acute (5) Leukopenia Current Visit: Yes Status: Acute Subjective Interval history: still sob feels sl better Objective Vital Signs - 12hr 02/08/21 02/08/21 02/09/21 22:00 22:27 03:25 Temperature 98.6 F Pulse Rate 75 Respiratory 22 Rate Blood Pressure 121/82 O2 Sat by Pulse 96 96 97 Oximetry 02/09/21 02/09/21 05:27 08:00 Temperature 98.8 F Pulse Rate 69 Respiratory 18 Rate Blood Pressure 103/69 O2 Sat by Pulse 95 97 Oximetry Constitutional: no acute distress Eyes: non-icteric ENT: oropharynx dry Neck: supple Effort: normal Ascultation: Bilateral: diminished breath sounds Cardiovascular: regular rate and rhythm Gastrointestinal: normoactive bowel sounds, soft, non-tender Integumentary: normal Extremities: no cyanosis CBC and BMP: 02/08/21 04:37 02/09/21 08:25 ABG, PT/INR, D-dimer: ABG ABG pH 7.437 (7.320-7.450) 02/07/21 14:47 POC ABG pCO2 30.7 mmHg (32.0-48.0) L 02/07/21 14:47 POC ABG pO2 92.6 mmHg (83-108) 02/07/21 14:47 POC ABG HCO3 20.2 02/07/21 14:47 ABG O2 Saturation 96.6 (0-100) 02/07/21 14:47 PT/INR, D-dimer PT 13.8 Sec. (12.2-14.9) 02/07/21 14:07 INR 1.01 (0.87-1.13) 02/07/21 14:07 Abnormal lab findings: Abnormal Labs 02/07/21 02/07/21 02/07/21 09:30 14:07 14:07 WBC RBC RDW 18.3 H [place] % (Auto) 13.4 H Lymph # (Auto) 0.7 L Seg Neutrophils % 72.3 H Seg Neutrophils # Man Lymphocytes # (Manual) POC ABG pCO2 ABG Hemoglobin ABG Chloride ABG Glucose VBG pH Carboxyhemoglobin Sodium Carbon Dioxide BUN 29 H Creatinine 1.4 H Glucose 119 H Calcium Albumin 3.7 L Arterial Blood Glucose Coronavirus (PCR) Positive A 02/07/21 02/07/21 02/08/21 14:07 14:47 04:37 WBC 1.9 L* RBC 3.59 L RDW 18.3 H [place] % (Auto) Lymph # (Auto) Seg Neutrophils % Seg Neutrophils # Man 1.3 L Lymphocytes # (Manual) 0.5 L POC ABG pCO2 30.7 L ABG Hemoglobin 9.5 L ABG Chloride 108.0 H ABG Glucose 115 H VBG pH 7.465 H Carboxyhemoglobin 0.3 L Sodium Carbon Dioxide BUN Creatinine Glucose Calcium Albumin Arterial Blood Glucose 115 H Coronavirus (PCR) 02/08/21 02/08/21 02/09/21 04:37 18:49 08:25 WBC RBC RDW [place] % (Auto) Lymph # (Auto) Seg Neutrophils % Seg Neutrophils # Man Lymphocytes # (Manual) POC ABG pCO2 ABG Hemoglobin ABG Chloride ABG Glucose VBG pH Carboxyhemoglobin Sodium 135 L Carbon Dioxide 20 L 21 L BUN 25 H 25 H 23 H Creatinine Glucose 216 H 155 H 133 H Calcium 8.3 L Albumin 3.3 L 3.1 L 3.1 L Arterial Blood Glucose Coronavirus (PCR)
[2021-02-09] MEDS: SODIUM CHLORIDE 0.9% 1000 ML 1,000 ML IV SCH (10:10)
[2021-02-09] MEDS: dexAMETHasone 4 MG/ML VIAL IV SCH (10:11)
[2021-02-09] MEDS: ASCORBIC ACID 500 MG TAB PO SCH ×2 (10:11→22:00)
[2021-02-09] MEDS: CHOLECALCIFEROL (VIT D3) 1000 UNIT (25 mcg) TAB PO SCH (10:11)
[2021-02-09] MEDS: ZINC SULFATE 220 MG CAP PO SCH ×2 (10:32→22:02)
--- NOTE | 2021-02-09 13:02 | Progress Note ---
Assessment and Plan 35-year-old -[place] female who recently diagnosed with COVID-19 presented to the hospital with shortness of breath associated with fatigue malaise and fever. Assessment and plan: -- Acute hypoxemic respiratory failure Due to COVID-19 pneumonia Continue high flow O2 and wean off as tolerated Schedule nebulizer breathing treatment and empiric steroid Pulmonology on board --COVID-19 pneumonia -CXR shows patchy parenchymal disease which represent atypical pneumonia -S/p dexamethasone, azithromycin and cefepime in the ED -Placed on dexamethasone for total 10 days and remdesivir total 5 days -Infectious disease consulted, appreciate recommendations -Droplet/contact isolation -Continue SPO2 monitoring -Supplemental oxygen as needed -Pulmonary hygiene -Prone to sleep -Vitamin C, vitamin D, zinc -Anticoagulation per protocol -Lasix IV as needed to prevent pulmonary edema --Acute kidney injury (MAUREEN) with vasomotor nephropathy Creatinine was 1.4 on admission now resolved with IV fluid Continue to follow renal function -- DVT prophylaxis SCD to bilateral lower extremities while in bed, prophylactic anticoagulation per protocol Daily clinical course: 02/08/21: Patient tested positive for COVID-19, will initiate remdesivir for 5 days and dexamethasone for 10 days, ID consulted, pulmonology consulted. Continue supportive care, follow COVID-19 protocol and inflammatory markers to assess disease progression/improvement 02/09/21: Continue dexamethasone and remdesivir, patient remains on high flow O2, wean off O2 as tolerated, follow inflammatory markers. Subjective Date of service: 02/09/21 Interval history: Patient seen and examined. Medical records and medication list reviewed. No acute event overnight noted by the RN. Patient on high flow O2. Patient is tolerating diet. Covid test is positive Discussed plan of care at bedside with patient. Objective - Exam Narrative Exam: Limited physical exam due to COVID-19 pandemic to minimize transmission of the disease and to preserve PPE. Vital reviewed and stable. GENERAL: well-developed well-nourished -[place] female lying on bed appeared to be in no discomfort. HEENT: Normocephalic. Atraumatic. NECK: Supple. CHEST/LUNGS: breathing on high flow O2 HEART/CARDIOVASCULAR: Heart rate stable on telemetry ABDOMEN: Visibly not distended SKIN: There is no rash NEURO: No focal motor deficit. Follows command. MUSCULOSKELETAL: No joint effusion EXTRIMITY: No swelling, no cyanosis or clubbing. PSYCH: Cooperative. - Constitutional Vitals: Vital Signs - 12hr 02/09/21 02/09/21 02/09/21 03:25 05:27 08:00 Temperature 98.8 F Pulse Rate 69 Respiratory 18 Rate Blood Pressure 103/69 O2 Sat by Pulse 97 95 97 Oximetry - Labs CBC & Chem 7: 02/08/21 04:37 02/11/21 07:56 Labs: Abnormal lab results 02/07/21 02/08/21 02/09/21 Range/Units 09:30 18:49 08:25 Sodium 135 L (137-145) mmol/L Carbon Dioxide 21 L (22-30) mmol/L BUN 25 H 23 H (7-17) mg/dL Glucose 155 H 133 H (65-100) mg/dL Albumin 3.1 L 3.1 L (3.9-5) g/dL Coronavirus (PCR) Positive A (Negative)
[2021-02-09 16:10] LABS: C-Reactive Protein 3.4 mg/dL (0.00-1.30)
[2021-02-09] MEDS: AZITHROMYCIN/NS 500 MG/250 ML 500 MG/250 ML BAG IV SCH (17:16)
[2021-02-09] MEDS: cefTRIAXone/NS 2 GM/100 ML 2 GM/100 ML BAG IV SCH (18:17)
[2021-02-09] MEDS: REMDESIVIR 100 MG in SODIUM CHLORIDE 0.9% 250ML 250 ML IV SCH (22:33)
[2021-02-09] MEDS: SODIUM CHLORIDE 0.9% 50 ML IVPB IV SCH (22:33)
--- NOTE | 2021-02-10 08:04 | Progress Note ---
Assessment and Plan - Patient Problems (1) Acute hypoxemic respiratory failure Current Visit: Yes Status: Acute (2) Acute kidney injury (MAUREEN) with acute tubular necrosis (ATN) Current Visit: Yes Status: Acute (3) Pneumonia Current Visit: Yes Status: Acute (4) Pneumonia due to COVID-19 virus Current Visit: Yes Status: Acute (5) Leukopenia Current Visit: Yes Status: Acute Subjective Interval history: looks better sl very sob w movement Objective Vital Signs - 12hr 02/09/21 02/09/21 02/09/21 20:10 21:45 22:00 Temperature 98.2 F Pulse Rate 96 H Respiratory 28 H Rate Blood Pressure 109/72 O2 Sat by Pulse 97 96 93 Oximetry 02/10/21 02/10/21 02:00 05:31 Temperature 98.1 F Pulse Rate 77 Respiratory 20 Rate Blood Pressure 124/84 O2 Sat by Pulse 97 99 Oximetry Constitutional: other (mild distress) Eyes: non-icteric ENT: oropharynx moist Neck: supple Effort: normal Ascultation: Bilateral: diminished breath sounds Cardiovascular: regular rate and rhythm Gastrointestinal: normoactive bowel sounds, soft, non-tender, non-distended Integumentary: normal Extremities: no cyanosis CBC and BMP: 02/08/21 04:37 02/10/21 07:51 ABG, PT/INR, D-dimer: ABG ABG pH 7.437 (7.320-7.450) 02/07/21 14:47 POC ABG pCO2 30.7 mmHg (32.0-48.0) L 02/07/21 14:47 POC ABG pO2 92.6 mmHg (83-108) 02/07/21 14:47 POC ABG HCO3 20.2 02/07/21 14:47 ABG O2 Saturation 96.6 (0-100) 02/07/21 14:47 PT/INR, D-dimer PT 13.8 Sec. (12.2-14.9) 02/07/21 14:07 INR 1.01 (0.87-1.13) 02/07/21 14:07 D-Dimer 716.60 ng/mlDDU (0-234) H 02/09/21 14:28 Abnormal lab findings: Abnormal Labs 02/07/21 02/07/21 02/07/21 09:30 14:07 14:07 WBC RBC RDW 18.3 H [place] % (Auto) 13.4 H Lymph # (Auto) 0.7 L Seg Neutrophils % 72.3 H Seg Neutrophils # Man Lymphocytes # (Manual) D-Dimer POC ABG pCO2 ABG Hemoglobin ABG Chloride ABG Glucose VBG pH Carboxyhemoglobin Sodium Carbon Dioxide BUN 29 H Creatinine 1.4 H Glucose 119 H Calcium Ferritin Lactate Dehydrogenase C-Reactive Protein Albumin 3.7 L Arterial Blood Glucose Coronavirus (PCR) Positive A 02/07/21 02/07/21 02/08/21 14:07 14:47 04:37 WBC 1.9 L* RBC 3.59 L RDW 18.3 H [place] % (Auto) Lymph # (Auto) Seg Neutrophils % Seg Neutrophils # Man 1.3 L Lymphocytes # (Manual) 0.5 L D-Dimer POC ABG pCO2 30.7 L ABG Hemoglobin 9.5 L ABG Chloride 108.0 H ABG Glucose 115 H VBG pH 7.465 H Carboxyhemoglobin 0.3 L Sodium Carbon Dioxide BUN Creatinine Glucose Calcium Ferritin Lactate Dehydrogenase C-Reactive Protein Albumin Arterial Blood Glucose 115 H Coronavirus (PCR) 02/08/21 02/08/21 02/09/21 04:37 18:49 08:25 WBC RBC RDW [place] % (Auto) Lymph # (Auto) Seg Neutrophils % Seg Neutrophils # Man Lymphocytes # (Manual) D-Dimer POC ABG pCO2 ABG Hemoglobin ABG Chloride ABG Glucose VBG pH Carboxyhemoglobin Sodium 135 L Carbon Dioxide 20 L 21 L BUN 25 H 25 H 23 H Creatinine Glucose 216 H 155 H 133 H Calcium 8.3 L Ferritin Lactate Dehydrogenase C-Reactive Protein Albumin 3.3 L 3.1 L 3.1 L Arterial Blood Glucose Coronavirus (PCR) 02/09/21 02/09/21 02/09/21 14:28 14:28 14:28 WBC RBC RDW [place] % (Auto) Lymph # (Auto) Seg Neutrophils % Seg Neutrophils # Man Lymphocytes # (Manual) D-Dimer 716.60 H POC ABG pCO2 ABG Hemoglobin ABG Chloride ABG Glucose VBG pH Carboxyhemoglobin Sodium Carbon Dioxide BUN Creatinine Glucose Calcium Ferritin 766.8 H Lactate Dehydrogenase 392 H C-Reactive Protein 3.40 H Albumin Arterial Blood Glucose Coronavirus (PCR)
[2021-02-10 08:32] LABS: Alanine Aminotransferase 15 units/L (7-56); Albumin 3.2 g/dL (3.9-5); Blood Urea Nitrogen 21 mg/dL (7-17); Calcium 8.5 mg/dL (8.4-10.2); Hemolysis Index 13
[2021-02-10 08:35] LABS: BUN/Creatinine Ratio 30
[2021-02-10] MEDS: CHOLECALCIFEROL (VIT D3) 1000 UNIT (25 mcg) TAB PO SCH (10:30)
[2021-02-10] MEDS: ASCORBIC ACID 500 MG TAB PO SCH ×2 (10:30→21:30)
[2021-02-10] MEDS: dexAMETHasone 4 MG/ML VIAL IV SCH (10:30)
[2021-02-10] MEDS: ZINC SULFATE 220 MG CAP PO SCH ×2 (10:30→21:30)
[2021-02-10] MEDS: oxyCODONE /ACETAMINOPHEN 5-325MG TAB PO PRN (10:35)
--- NOTE | 2021-02-10 13:50 | Progress Note ---
Assessment and Plan Cultures: Blood culture no growth Urine culture no growth Sputum culture Wound culture A/P: 40-year-old female no past medical history admitted with COVID-19 #Severe COVID-19 pneumonia: Patient presented with a week of symptoms, chest x- ray with diffuse bilateral infiltrates #Acute hypoxemic respiratory failure: Likely secondary to COVID-19 infection. Currently on high flow nasal cannula #Leukopenia: secondary to covid Recs: -Dexamethasone 6 mg IV/PO daily for 10 days -Remdesivir 200 mg IV q day x 1 followed by 100 mg IV q day x 4 days -Obtain q48-72h inflammatory markers - ferritin, Ddimer, CRP, LDH -Procalcitonin low, stopped antibiotics -Anticoagulation per hospital protocol -Proning as able Thank you for the consult, we will continue to follow. Annmarie Lyon MD [facility] O: [phone] F: [phone] Subjective Date of service: 02/10/21 Interval history: Afebrile, white count 1.9. Currently on high flow nasal cannula. Objective - Exam Narrative Exam: Physical exam deferred to reduce risk of transmission of COVID-19. Please refer to primary team's note. - Constitutional Vitals: Vital Signs Temp Pulse Resp BP Pulse Ox 98.1 F 77 28 H 124/84 94 02/10/21 05:31 02/10/21 05:31 02/10/21 10:35 02/10/21 05:31 02/10/21 10:00 Temperature -Last 24 Hours Temperature 98.1 F Temperature 98.2 F - Labs CBC & Chem 7: 02/08/21 04:37 02/10/21 07:51 Labs: Abnormal lab results 02/09/21 02/09/21 02/09/21 Range/Units 14:28 14:28 14:28 D-Dimer 716.60 H (0-234) ng/mlDDU Chloride (98-107) mmol/L BUN (7-17) mg/dL Glucose (65-100) mg/dL Ferritin 766.8 H (10.0-200.0) ng/mL Lactate Dehydrogenase 392 H (91-180) units/L C-Reactive Protein 3.40 H (0.00-1.30) mg/dL Total Protein (6.3-8.2) g/dL Albumin (3.9-5) g/dL 02/10/21 Range/Units 07:51 D-Dimer (0-234) ng/mlDDU Chloride 109.6 H (98-107) mmol/L BUN 21 H (7-17) mg/dL Glucose 103 H (65-100) mg/dL Ferritin (10.0-200.0) ng/mL Lactate Dehydrogenase (91-180) units/L C-Reactive Protein (0.00-1.30) mg/dL Total Protein 5.7 L (6.3-8.2) g/dL Albumin 3.2 L (3.9-5) g/dL
--- NOTE | 2021-02-10 14:27 | Electrocardiograph Report ---
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
--- NOTE | 2021-02-10 18:31 | Progress Note ---
Assessment and Plan 35-year-old -Greek female who recently diagnosed with COVID-19 presented to the hospital with shortness of breath associated with fatigue malaise and fever. Assessment and plan: -- Acute hypoxemic respiratory failure Due to COVID-19 pneumonia Continue high flow O2 and wean off as tolerated Schedule nebulizer breathing treatment and empiric steroid Pulmonology on board --COVID-19 pneumonia -CXR shows patchy parenchymal disease which represent atypical pneumonia -S/p dexamethasone, azithromycin and cefepime in the ED -Placed on dexamethasone for total 10 days and remdesivir total 5 days -Infectious disease consulted, appreciate recommendations -Droplet/contact isolation -Continue SPO2 monitoring -Supplemental oxygen as needed -Pulmonary hygiene -Prone to sleep -Vitamin C, vitamin D, zinc -Anticoagulation per protocol -Lasix IV as needed to prevent pulmonary edema --Acute kidney injury (MAUREEN) with vasomotor nephropathy Creatinine was 1.4 on admission now resolved with IV fluid Continue to follow renal function -- DVT prophylaxis SCD to bilateral lower extremities while in bed, prophylactic anticoagulation per protocol Daily clinical course: 02/08/21: Patient tested positive for COVID-19, will initiate remdesivir for 5 days and dexamethasone for 10 days, ID consulted, pulmonology consulted. Continue supportive care, follow COVID-19 protocol and inflammatory markers to assess disease progression/improvement 02/09/21: Continue dexamethasone and remdesivir, patient remains on high flow O2, wean off O2 as tolerated, follow inflammatory markers. 02/10/21; patient on 25 L 50% FiO2 today, continue dexamethasone and remdesivir. Wean off O2 as tolerated, follow inflammatory markers. Pulmonary and ID following. Subjective Date of service: 02/10/21 Interval history: Patient seen and examined. Medical records and medication list reviewed. No acute event overnight noted by the RN. Patient on high flow O2. Patient is tolerating diet. Covid test is positive Discussed plan of care at bedside with patient. Objective - Exam Narrative Exam: Limited physical exam due to COVID-19 pandemic to minimize transmission of the disease and to preserve PPE. Vital reviewed and stable. GENERAL: well-developed well-nourished -Greek female lying on bed appeared to be in no discomfort. HEENT: Normocephalic. Atraumatic. NECK: Supple. CHEST/LUNGS: breathing on high flow O2 HEART/CARDIOVASCULAR: Heart rate stable on telemetry ABDOMEN: Visibly not distended SKIN: There is no rash NEURO: No focal motor deficit. Follows command. MUSCULOSKELETAL: No joint effusion EXTRIMITY: No swelling, no cyanosis or clubbing. PSYCH: Cooperative. - Constitutional Vitals: Vital Signs - 12hr 02/10/21 02/10/21 02/10/21 10:00 10:20 10:35 Respiratory 30 H 28 H Rate O2 Sat by Pulse 94 94 Oximetry 02/10/21 02/10/21 14:00 15:36 Respiratory Rate O2 Sat by Pulse 99 99 Oximetry - Labs CBC & Chem 7: 02/08/21 04:37 02/11/21 07:56 Labs: Abnormal lab results 02/10/21 Range/Units 07:51 Chloride 109.6 H (98-107) mmol/L BUN 21 H (7-17) mg/dL Glucose 103 H (65-100) mg/dL Total Protein 5.7 L (6.3-8.2) g/dL Albumin 3.2 L (3.9-5) g/dL
[2021-02-10] MEDS: SODIUM CHLORIDE 0.9% 1000 ML 1,000 ML IV SCH (19:04)
[2021-02-10] MEDS: SODIUM CHLORIDE 0.9% 50 ML IVPB IV SCH (21:29)
[2021-02-10] MEDS: REMDESIVIR 100 MG in SODIUM CHLORIDE 0.9% 250ML 250 ML IV SCH (21:29)
[2021-02-11 08:43] LABS: Alanine Aminotransferase 15 units/L (7-56); Blood Urea Nitrogen 15 mg/dL (7-17); Calcium 8.6 mg/dL (8.4-10.2); Hemolysis Index 9
[2021-02-11 08:44] LABS: BUN/Creatinine Ratio 30
[2021-02-11] MEDS: dexAMETHasone 4 MG/ML VIAL IV SCH (10:20)
[2021-02-11] MEDS: ASCORBIC ACID 500 MG TAB PO SCH ×2 (10:21→23:34)
[2021-02-11] MEDS: ZINC SULFATE 220 MG CAP PO SCH ×2 (10:21→23:34)
[2021-02-11] MEDS: CHOLECALCIFEROL (VIT D3) 1000 UNIT (25 mcg) TAB PO SCH (10:21)
--- NOTE | 2021-02-11 12:12 | Progress Note ---
Assessment and Plan 40 y/o female with acute respiratory failure secondary to cOVID 19 and COVID pneumonia. 1. Ordered the Prone Protocol. Please document if patient prones, refuses to prone or the inability to prone 2. Continue IV steroids 3. Gave lasix today 4. Wean FiO2 and flow as tolerated for sats >88% Subjective Date of service: 02/11/21 Interval history: No acute events. Remains on HFNC but only at 30 and 45%. Good sats. I/O not accurate but for now showing positive fluid balance. Good BP. No documentation of proning. Objective Vital Signs - 12hr 02/11/21 02/11/21 02/11/21 04:38 04:41 09:35 Temperature 98.1 F Pulse Rate 57 L Respiratory 20 Rate Blood Pressure 125/86 O2 Sat by Pulse 100 98 97 Oximetry 02/11/21 09:50 Temperature Pulse Rate Respiratory Rate Blood Pressure O2 Sat by Pulse 96 Oximetry Constitutional: other (mild distress) Eyes: non-icteric ENT: oropharynx moist Neck: supple Effort: normal Ascultation: Bilateral: diminished breath sounds Cardiovascular: regular rate and rhythm Gastrointestinal: normoactive bowel sounds, soft, non-tender, non-distended Integumentary: normal Extremities: no cyanosis CBC and BMP: 02/08/21 04:37 02/11/21 07:56 ABG, PT/INR, D-dimer: ABG ABG pH 7.437 (7.320-7.450) 02/07/21 14:47 POC ABG pCO2 30.7 mmHg (32.0-48.0) L 02/07/21 14:47 POC ABG pO2 92.6 mmHg (83-108) 02/07/21 14:47 POC ABG HCO3 20.2 02/07/21 14:47 ABG O2 Saturation 96.6 (0-100) 02/07/21 14:47 PT/INR, D-dimer PT 13.8 Sec. (12.2-14.9) 02/07/21 14:07 INR 1.01 (0.87-1.13) 02/07/21 14:07 D-Dimer 716.60 ng/mlDDU (0-234) H 02/09/21 14:28 Abnormal lab findings: Abnormal Labs 02/07/21 02/07/21 02/07/21 09:30 14:07 14:07 WBC RBC RDW 18.3 H [place] % (Auto) 13.4 H Lymph # (Auto) 0.7 L Seg Neutrophils % 72.3 H Seg Neutrophils # Man Lymphocytes # (Manual) D-Dimer POC ABG pCO2 ABG Hemoglobin ABG Chloride ABG Glucose VBG pH Carboxyhemoglobin Sodium Chloride Carbon Dioxide BUN 29 H Creatinine 1.4 H Glucose 119 H Calcium Ferritin Lactate Dehydrogenase C-Reactive Protein Total Protein Albumin 3.7 L Arterial Blood Glucose Coronavirus (PCR) Positive A 02/07/21 02/07/21 02/08/21 14:07 14:47 04:37 WBC 1.9 L* RBC 3.59 L RDW 18.3 H [place] % (Auto) Lymph # (Auto) Seg Neutrophils % Seg Neutrophils # Man 1.3 L Lymphocytes # (Manual) 0.5 L D-Dimer POC ABG pCO2 30.7 L ABG Hemoglobin 9.5 L ABG Chloride 108.0 H ABG Glucose 115 H VBG pH 7.465 H Carboxyhemoglobin 0.3 L Sodium Chloride Carbon Dioxide BUN Creatinine Glucose Calcium Ferritin Lactate Dehydrogenase C-Reactive Protein Total Protein Albumin Arterial Blood Glucose 115 H Coronavirus (PCR) 02/08/21 02/08/21 02/09/21 04:37 18:49 08:25 WBC RBC RDW [place] % (Auto) Lymph # (Auto) Seg Neutrophils % Seg Neutrophils # Man Lymphocytes # (Manual) D-Dimer POC ABG pCO2 ABG Hemoglobin ABG Chloride ABG Glucose VBG pH Carboxyhemoglobin Sodium 135 L Chloride Carbon Dioxide 20 L 21 L BUN 25 H 25 H 23 H Creatinine Glucose 216 H 155 H 133 H Calcium 8.3 L Ferritin Lactate Dehydrogenase C-Reactive Protein Total Protein Albumin 3.3 L 3.1 L 3.1 L Arterial Blood Glucose Coronavirus (PCR) 02/09/21 02/09/21 02/09/21 14:28 14:28 14:28 WBC RBC RDW [place] % (Auto) Lymph # (Auto) Seg Neutrophils % Seg Neutrophils # Man Lymphocytes # (Manual) D-Dimer 716.60 H POC ABG pCO2 ABG Hemoglobin ABG Chloride ABG Glucose VBG pH Carboxyhemoglobin Sodium Chloride Carbon Dioxide BUN Creatinine Glucose Calcium Ferritin 766.8 H Lactate Dehydrogenase 392 H C-Reactive Protein 3.40 H Total Protein Albumin Arterial Blood Glucose Coronavirus (PCR) 02/10/21 02/11/21 07:51 07:56 WBC RBC RDW [place] % (Auto) Lymph # (Auto) Seg Neutrophils % Seg Neutrophils # Man Lymphocytes # (Manual) D-Dimer POC ABG pCO2 ABG Hemoglobin ABG Chloride ABG Glucose VBG pH Carboxyhemoglobin Sodium Chloride 109.6 H 109.1 H Carbon Dioxide BUN 21 H Creatinine 0.5 L Glucose 103 H 104 H Calcium Ferritin Lactate Dehydrogenase C-Reactive Protein Total Protein 5.7 L 5.5 L Albumin 3.2 L 3.0 L Arterial Blood Glucose Coronavirus (PCR)
[2021-02-11] MEDS ORDERED: FUROSEMIDE 20 MG/2 ML INJ IV NR (12:15)
--- NOTE | 2021-02-11 13:01 | Progress Note ---
Assessment and Plan Cultures: Blood culture no growth Urine culture no growth Sputum culture Wound culture A/P: 40-year-old female no past medical history admitted with COVID-19 #Severe COVID-19 pneumonia: Patient presented with a week of symptoms, chest x- ray with diffuse bilateral infiltrates #Acute hypoxemic respiratory failure: Likely secondary to COVID-19 infection. Currently on high flow nasal cannula #Leukopenia: secondary to covid Recs: -Dexamethasone 6 mg IV/PO daily for 10 days -Remdesivir 200 mg IV q day x 1 followed by 100 mg IV q day x 4 days -Obtain q48-72h inflammatory markers - ferritin, Ddimer, CRP, LDH -Repeat CBC in AM. -Anticoagulation per hospital protocol -Proning as able Thank you for the consult, we will continue to follow. Annmarie Lyon MD [facility] ([facility] O: [phone] F: [phone] Subjective Date of service: 02/11/21 Interval history: Afebrile with a white count of 1.9. Currently on high flow nasal cannula. Objective - Exam Narrative Exam: Physical exam deferred to reduce risk of transmission of COVID-19. Please refer to primary team's note. - Constitutional Vitals: Vital Signs Temp Pulse Resp BP Pulse Ox 98.1 F 57 L 20 125/86 96 02/11/21 04:41 02/11/21 04:41 02/11/21 04:41 02/11/21 04:41 02/11/21 09:50 Temperature -Last 24 Hours Temperature 98.1 F Temperature 98.0 F - Labs CBC & Chem 7: 02/08/21 04:37 02/11/21 07:56 Labs: Abnormal lab results 02/11/21 Range/Units 07:56 Chloride 109.1 H (98-107) mmol/L Creatinine 0.5 L (0.6-1.2) mg/dL Glucose 104 H (65-100) mg/dL Total Protein 5.5 L (6.3-8.2) g/dL Albumin 3.0 L (3.9-5) g/dL
--- NOTE | 2021-02-11 15:46 | Progress Note ---
Assessment and Plan 35-year-old -Lithuanian female who recently diagnosed with COVID-19 presented to the hospital with shortness of breath associated with fatigue malaise and fever. Assessment and plan: -- Acute hypoxemic respiratory failure Due to COVID-19 pneumonia Continue high flow O2 and wean off as tolerated Schedule nebulizer breathing treatment and empiric steroid Pulmonology on board --COVID-19 pneumonia -CXR shows patchy parenchymal disease which represent atypical pneumonia -S/p dexamethasone, azithromycin and cefepime in the ED -Placed on dexamethasone for total 10 days and remdesivir total 5 days -Infectious disease consulted, appreciate recommendations -Droplet/contact isolation -Continue SPO2 monitoring -Supplemental oxygen as needed -Pulmonary hygiene -Prone to sleep -Vitamin C, vitamin D, zinc -Anticoagulation per protocol -Lasix IV as needed to prevent pulmonary edema --Acute kidney injury (MAUREEN) with vasomotor nephropathy Creatinine was 1.4 on admission now resolved with IV fluid Continue to follow renal function -- DVT prophylaxis SCD to bilateral lower extremities while in bed, prophylactic anticoagulation per protocol Daily clinical course: 02/08/21: Patient tested positive for COVID-19, will initiate remdesivir for 5 days and dexamethasone for 10 days, ID consulted, pulmonology consulted. Continue supportive care, follow COVID-19 protocol and inflammatory markers to assess disease progression/improvement 02/09/21: Continue dexamethasone and remdesivir, patient remains on high flow O2, wean off O2 as tolerated, follow inflammatory markers. 02/10/21; patient on 25 L 50% FiO2 today, continue dexamethasone and remdesivir. Wean off O2 as tolerated, follow inflammatory markers. Pulmonary and ID following. 02/11/21: Patient on 30 L 90% FiO2 today. Continue to follow clinically. Plan for 1 dose of Lasix today. Continue dexamethasone and remdesivir. Subjective Date of service: 02/11/21 Interval history: Patient seen and examined. Medical records and medication list reviewed. No acute event overnight noted by the RN. Patient remains on high flow O2. Patient is tolerating diet. Covid test is positive Discussed plan of care at bedside with patient. Objective - Exam Narrative Exam: Limited physical exam due to COVID-19 pandemic to minimize transmission of the disease and to preserve PPE. Vital reviewed and stable. GENERAL: well-developed well-nourished -Lithuanian female lying on bed appeared to be in no discomfort. HEENT: Normocephalic. Atraumatic. NECK: Supple. CHEST/LUNGS: breathing on high flow O2 HEART/CARDIOVASCULAR: Heart rate stable on telemetry ABDOMEN: Visibly not distended SKIN: There is no rash NEURO: No focal motor deficit. Follows command. MUSCULOSKELETAL: No joint effusion EXTRIMITY: No swelling, no cyanosis or clubbing. PSYCH: Cooperative. - Constitutional Vitals: Vital Signs - 12hr 02/11/21 02/11/21 02/11/21 04:38 04:41 09:35 Temperature 98.1 F Pulse Rate 57 L Respiratory 20 Rate Blood Pressure 125/86 O2 Sat by Pulse 100 98 97 Oximetry 02/11/21 09:50 Temperature Pulse Rate Respiratory Rate Blood Pressure O2 Sat by Pulse 96 Oximetry - Labs CBC & Chem 7: 02/12/21 05:28 02/11/21 07:56 Labs: Abnormal lab results 02/11/21 Range/Units 07:56 Chloride 109.1 H (98-107) mmol/L Creatinine 0.5 L (0.6-1.2) mg/dL Glucose 104 H (65-100) mg/dL Total Protein 5.5 L (6.3-8.2) g/dL Albumin 3.0 L (3.9-5) g/dL
[2021-02-11] MEDS: SODIUM CHLORIDE 0.9% 50 ML IVPB IV SCH (23:33)
[2021-02-11] MEDS: REMDESIVIR 100 MG in SODIUM CHLORIDE 0.9% 250ML 250 ML IV SCH (23:33)
[2021-02-12 06:16] LABS: Hematocrit 34.8 % (30.3-42.9); Hemoglobin 11.4 gm/dl (10.1-14.3); Mean Corpuscular HGB Conc 33 % (30-34); Mean Corpuscular Volume 95 fl (79-97); Platelet Count 350 K/mm3 (140-440); Red Blood Count 3.64 M/mm3 (3.65-5.03)
[2021-02-12 07:06] LABS: Anisocytosis Few; Band Neutrophils # (Manual) 0.1 K/mm3; Ovalocytes 1+; Platelet Estimate Consistent w Auto; Total Cells Counted 100
[2021-02-12] MEDS: dexAMETHasone 4 MG/ML VIAL IV SCH (10:24)
[2021-02-12] MEDS: CHOLECALCIFEROL (VIT D3) 1000 UNIT (25 mcg) TAB PO SCH (10:24)
[2021-02-12] MEDS: ZINC SULFATE 220 MG CAP PO SCH ×2 (10:24→22:14)
[2021-02-12] MEDS: ASCORBIC ACID 500 MG TAB PO SCH ×2 (10:24→22:14)
[2021-02-12] MEDS: guaiFENesin 100 MG/5 ML ORAL LIQD PO PRN ×2 (11:54→17:45)
--- NOTE | 2021-02-12 13:18 | Progress Note ---
Assessment and Plan 40 y/o female with acute respiratory failure secondary to cOVID 19 and COVID pneumonia. : Prone as tolerated. Continue IV steroids. Hold on Lasix today, check chemistry tomorrow. Wean FiO2 back down. Guarded prognosis. 1. Ordered the Prone Protocol. Please document if patient prones, refuses to prone or the inability to prone 2. Continue IV steroids 3. Gave lasix today 4. Wean FiO2 and flow as tolerated for sats >88% Subjective Date of service: 02/12/21 Interval history: FiO2 bumped up to 50% today, not sure why. STable otherwise. Was on 40% last night. Objective Vital Signs - 12hr 02/12/21 02/12/21 02/12/21 03:36 04:00 04:33 Temperature 97.9 F Respiratory 20 Rate Blood Pressure 119/75 O2 Sat by Pulse 96 96 Oximetry 02/12/21 02/12/21 09:33 11:50 Temperature Respiratory Rate Blood Pressure O2 Sat by Pulse 89 95 Oximetry Constitutional: other (mild distress) Eyes: non-icteric ENT: oropharynx moist Neck: supple Effort: normal Ascultation: Bilateral: diminished breath sounds Cardiovascular: regular rate and rhythm Gastrointestinal: normoactive bowel sounds, soft, non-tender, non-distended Integumentary: normal Extremities: no cyanosis CBC and BMP: 02/12/21 05:28 02/11/21 07:56 ABG, PT/INR, D-dimer: ABG ABG pH 7.437 (7.320-7.450) 02/07/21 14:47 POC ABG pCO2 30.7 mmHg (32.0-48.0) L 02/07/21 14:47 POC ABG pO2 92.6 mmHg (83-108) 02/07/21 14:47 POC ABG HCO3 20.2 02/07/21 14:47 ABG O2 Saturation 96.6 (0-100) 02/07/21 14:47 PT/INR, D-dimer PT 13.8 Sec. (12.2-14.9) 02/07/21 14:07 INR 1.01 (0.87-1.13) 02/07/21 14:07 D-Dimer 716.60 ng/mlDDU (0-234) H 02/09/21 14:28 Abnormal lab findings: Abnormal Labs 02/07/21 02/07/21 02/07/21 09:30 14:07 14:07 WBC RBC RDW 18.3 H [place] % (Auto) 13.4 H Lymph # (Auto) 0.7 L Seg Neutrophils % 72.3 H Seg Neuts % (Manual) Lymphocytes % (Manual) Monocytes % (Manual) Seg Neutrophils # Man Lymphocytes # (Manual) D-Dimer POC ABG pCO2 ABG Hemoglobin ABG Chloride ABG Glucose VBG pH Carboxyhemoglobin Sodium Chloride Carbon Dioxide BUN 29 H Creatinine 1.4 H Glucose 119 H Calcium Ferritin Lactate Dehydrogenase C-Reactive Protein Total Protein Albumin 3.7 L Arterial Blood Glucose Coronavirus (PCR) Positive A 02/07/21 02/07/21 02/08/21 14:07 14:47 04:37 WBC 1.9 L* RBC 3.59 L RDW 18.3 H [place] % (Auto) Lymph # (Auto) Seg Neutrophils % Seg Neuts % (Manual) Lymphocytes % (Manual) Monocytes % (Manual) Seg Neutrophils # Man 1.3 L Lymphocytes # (Manual) 0.5 L D-Dimer POC ABG pCO2 30.7 L ABG Hemoglobin 9.5 L ABG Chloride 108.0 H ABG Glucose 115 H VBG pH 7.465 H Carboxyhemoglobin 0.3 L Sodium Chloride Carbon Dioxide BUN Creatinine Glucose Calcium Ferritin Lactate Dehydrogenase C-Reactive Protein Total Protein Albumin Arterial Blood Glucose 115 H Coronavirus (PCR) 02/08/21 02/08/21 02/09/21 04:37 18:49 08:25 WBC RBC RDW [place] % (Auto) Lymph # (Auto) Seg Neutrophils % Seg Neuts % (Manual) Lymphocytes % (Manual) Monocytes % (Manual) Seg Neutrophils # Man Lymphocytes # (Manual) D-Dimer POC ABG pCO2 ABG Hemoglobin ABG Chloride ABG Glucose VBG pH Carboxyhemoglobin Sodium 135 L Chloride Carbon Dioxide 20 L 21 L BUN 25 H 25 H 23 H Creatinine Glucose 216 H 155 H 133 H Calcium 8.3 L Ferritin Lactate Dehydrogenase C-Reactive Protein Total Protein Albumin 3.3 L 3.1 L 3.1 L Arterial Blood Glucose Coronavirus (PCR) 02/09/21 02/09/21 02/09/21 14:28 14:28 14:28 WBC RBC RDW [place] % (Auto) Lymph # (Auto) Seg Neutrophils % Seg Neuts % (Manual) Lymphocytes % (Manual) Monocytes % (Manual) Seg Neutrophils # Man Lymphocytes # (Manual) D-Dimer 716.60 H POC ABG pCO2 ABG Hemoglobin ABG Chloride ABG Glucose VBG pH Carboxyhemoglobin Sodium Chloride Carbon Dioxide BUN Creatinine Glucose Calcium Ferritin 766.8 H Lactate Dehydrogenase 392 H C-Reactive Protein 3.40 H Total Protein Albumin Arterial Blood Glucose Coronavirus (PCR) 02/10/21 02/11/21 02/12/21 07:51 07:56 05:28 WBC RBC 3.64 L RDW 18.0 H [place] % (Auto) Lymph # (Auto) Seg Neutrophils % Seg Neuts % (Manual) 79.0 H Lymphocytes % (Manual) 9.0 L Monocytes % (Manual) 10.0 H Seg Neutrophils # Man Lymphocytes # (Manual) 0.5 L D-Dimer POC ABG pCO2 ABG Hemoglobin ABG Chloride ABG Glucose VBG pH Carboxyhemoglobin Sodium Chloride 109.6 H 109.1 H Carbon Dioxide BUN 21 H Creatinine 0.5 L Glucose 103 H 104 H Calcium Ferritin Lactate Dehydrogenase C-Reactive Protein Total Protein 5.7 L 5.5 L Albumin 3.2 L 3.0 L Arterial Blood Glucose Coronavirus (PCR)
--- NOTE | 2021-02-12 15:35 | Progress Note ---
Assessment and Plan 35-year-old -Togolese female who recently diagnosed with COVID-19 presented to the hospital with shortness of breath associated with fatigue malaise and fever. Assessment and plan: -- Acute hypoxemic respiratory failure Due to COVID-19 pneumonia Continue high flow O2 and wean off as tolerated Schedule nebulizer breathing treatment and empiric steroid Pulmonology on board --COVID-19 pneumonia with sepsis -CXR shows patchy parenchymal disease which represent atypical pneumonia -S/p dexamethasone, azithromycin and cefepime in the ED -Placed on dexamethasone for total 10 days and remdesivir total 5 days -Infectious disease consulted, appreciate recommendations -Droplet/contact isolation -Continue SPO2 monitoring -Supplemental oxygen as needed -Pulmonary hygiene -Prone to sleep -Vitamin C, vitamin D, zinc -Anticoagulation per protocol -Lasix IV as needed to prevent pulmonary edema --elevated d-dimer initiate Px dose of eliquis, follow clinically --Acute kidney injury (MAUREEN) with vasomotor nephropathy Creatinine was 1.4 on admission now resolved with IV fluid Continue to follow renal function -- DVT prophylaxis SCD to bilateral lower extremities while in bed, prophylactic anticoagulation p er protocol Daily clinical course: 02/08/21: Patient tested positive for COVID-19, will initiate remdesivir for 5 days and dexamethasone for 10 days, ID consulted, pulmonology consulted. Continue supportive care, follow COVID-19 protocol and inflammatory markers to assess disease progression/improvement 02/09/21: Continue dexamethasone and remdesivir, patient remains on high flow O2, wean off O2 as tolerated, follow inflammatory markers. 02/10/21; patient on 25 L 50% FiO2 today, continue dexamethasone and remdesivir. Wean off O2 as tolerated, follow inflammatory markers. Pulmonary and ID following. 02/11/21: Patient on 30 L 90% FiO2 today. Continue to follow clinically. Plan for 1 dose of Lasix today. Continue dexamethasone and remdesivir. 02/12/21: plan for no lasix today. ordered for Prone as tolerated. Continue IV steroids. completed remdesivir today. Follow inflammatory markers, wean off O2 as tolerated. elevated d-dimer: initiate eliquis 5mg bid Subjective Date of service: 02/12/21 Interval history: Patient seen and examined. Medical records and medication list reviewed. No acute event overnight noted by the RN. Patient remains on high flow O2. Patient is tolerating diet. Covid test is positive Discussed plan of care at bedside with patient. Objective - Exam Narrative Exam: Limited physical exam due to COVID-19 pandemic to minimize transmission of the disease and to preserve PPE. Vital reviewed and stable. GENERAL: well-developed well-nourished -[place]ogolese female lying on bed appeared to be in no discomfort. HEENT: Normocephalic. Atraumatic. NECK: Supple. CHEST/LUNGS: breathing on high flow O2 HEART/CARDIOVASCULAR: Heart rate stable on telemetry ABDOMEN: Visibly not distended SKIN: There is no rash NEURO: No focal motor deficit. Follows command. MUSCULOSKELETAL: No joint effusion EXTRIMITY: No swelling, no cyanosis or clubbing. PSYCH: Cooperative. - Constitutional Vitals: Vital Signs - 12hr 02/12/21 02/12/21 02/12/21 03:36 04:00 04:33 Temperature 97.9 F Respiratory 20 Rate Blood Pressure 119/75 O2 Sat by Pulse 96 96 Oximetry 02/12/21 02/12/21 02/12/21 09:33 11:50 14:18 Temperature Respiratory Rate Blood Pressure O2 Sat by Pulse 89 95 97 Oximetry - Labs CBC & Chem 7: 02/12/21 05:28 02/11/21 07:56 Labs: Abnormal lab results 02/12/21 Range/Units 05:28 RBC 3.64 L (3.65-5.03) M/mm3 RDW 18.0 H (13.2-15.2) % Seg Neuts % (Manual) 79.0 H (40.0-70.0) % Lymphocytes % (Manual) 9.0 L (13.4-35.0) % Monocytes % (Manual) 10.0 H (0.0-7.3) % Lymphocytes # (Manual) 0.5 L (1.2-5.4) K/mm3
[2021-02-12 15:51] LABS: C-Reactive Protein 9.8 mg/dL (0.00-1.30)
--- NOTE | 2021-02-12 17:01 | Progress Note ---
Assessment and Plan Cultures: Blood culture no growth Urine culture no growth Sputum culture Wound culture A/P: 40-year-old female no past medical history admitted with COVID-19 #Severe COVID-19 pneumonia: Patient presented with a week of symptoms, chest x- ray with diffuse bilateral infiltrates #Acute hypoxemic respiratory failure: Likely secondary to COVID-19 infection. Currently on high flow nasal cannula #Leukopenia: secondary to covid. Resolved Recs: -Dexamethasone 6 mg IV/PO daily for 10 days -Remdesivir 200 mg IV q day x 1 followed by 100 mg IV q day x 4 days -Obtain q48-72h inflammatory markers - ferritin, Ddimer, CRP, LDH -Anticoagulation per hospital protocol -Proning as able Thank you for the consult, we will continue to follow. Annmarie Lyon MD [facility] O: [phone] F: [phone] Subjective Date of service: 02/12/21 Interval history: Afebrile, normal white count. On high flow nasal cannula. Objective - Exam Narrative Exam: Physical exam deferred to reduce risk of transmission of COVID-19. Please refer to primary team's note. - Constitutional Vitals: Vital Signs Temp Pulse Resp BP Pulse Ox 97.9 F 78 20 119/75 97 02/12/21 04:33 02/11/21 20:56 02/12/21 04:33 02/12/21 04:33 02/12/21 14:18 Temperature -Last 24 Hours Temperature 97.9 F Temperature 98.1 F - Labs CBC & Chem 7: 02/12/21 05:28 02/11/21 07:56 Labs: Abnormal lab results 02/12/21 02/12/21 02/12/21 Range/Units 05:28 15:08 15:08 RBC 3.64 L (3.65-5.03) M/mm3 RDW 18.0 H (13.2-15.2) % Seg Neuts % (Manual) 79.0 H (40.0-70.0) % Lymphocytes % (Manual) 9.0 L (13.4-35.0) % Monocytes % (Manual) 10.0 H (0.0-7.3) % Lymphocytes # (Manual) 0.5 L (1.2-5.4) K/mm3 D-Dimer 5571.21 H (0-234) ng/mlDDU Ferritin 819.1 H (10.0-200.0) ng/mL Lactate Dehydrogenase (91-180) units/L C-Reactive Protein (0.00-1.30) mg/dL 02/12/21 Range/Units 15:08 RBC (3.65-5.03) M/mm3 RDW (13.2-15.2) % Seg Neuts % (Manual) (40.0-70.0) % Lymphocytes % (Manual) (13.4-35.0) % Monocytes % (Manual) (0.0-7.3) % Lymphocytes # (Manual) (1.2-5.4) K/mm3 D-Dimer (0-234) ng/mlDDU Ferritin (10.0-200.0) ng/mL Lactate Dehydrogenase 589 H (91-180) units/L C-Reactive Protein 9.80 H (0.00-1.30) mg/dL
[2021-02-12] MEDS: REMDESIVIR 100 MG in SODIUM CHLORIDE 0.9% 250ML 250 ML IV SCH (22:15)
[2021-02-12] MEDS: SODIUM CHLORIDE 0.9% 50 ML IVPB IV SCH (22:15)
[2021-02-13] MEDS: guaiFENesin 100 MG/5 ML ORAL LIQD PO PRN ×2 (00:52→13:40)
[2021-02-13 07:00] LABS: Hematocrit 32.7 % (30.3-42.9); Hemoglobin 10.9 gm/dl (10.1-14.3); Mean Corpuscular HGB Conc 33 % (30-34); Mean Corpuscular Volume 94 fl (79-97); Platelet Count 359 K/mm3 (140-440); Red Blood Count 3.49 M/mm3 (3.65-5.03); Red Cell Distribution Width 17.8 % (13.2-15.2)
[2021-02-13 07:04] LABS: Alanine Aminotransferase 16 units/L (7-56); Albumin 2.8 g/dL (3.9-5); Blood Urea Nitrogen 16 mg/dL (7-17); Hemolysis Index 3
[2021-02-13 07:05] LABS: BUN/Creatinine Ratio 40
[2021-02-13 08:53] LABS: Hematocrit 32.5 % (30.3-42.9); Hemoglobin 10.8 gm/dl (10.1-14.3); Mean Corpuscular HGB Conc 33 % (30-34); Mean Corpuscular Volume 94 fl (79-97); Platelet Count 368 K/mm3 (140-440); Red Blood Count 3.47 M/mm3 (3.65-5.03); Red Cell Distribution Width 17.9 % (13.2-15.2)
--- NOTE | 2021-02-13 09:10 | Progress Note ---
Assessment and Plan 40 y/o female with acute respiratory failure secondary to cOVID 19 and COVID pneumonia. 02/13/21: Chemistry stable so will give Lasix today. Continue IV steroids. Wean FiO2 for sats >88%. Prone if possible. : Prone as tolerated. Continue IV steroids. Hold on Lasix today, check chemistry tomorrow. Wean FiO2 back down. Guarded prognosis. 1. Ordered the Prone Protocol. Please document if patient prones, refuses to prone or the inability to prone 2. Continue IV steroids 3. Gave lasix today 4. Wean FiO2 and flow as tolerated for sats >88% Subjective Date of service: 02/13/21 Interval history: NO acute events. Still on HFNC Objective Vital Signs - 12hr 02/12/21 02/12/21 02/13/21 21:35 23:54 04:00 Temperature 97.2 F L Pulse Rate 94 H Respiratory 20 Rate Blood Pressure 114/80 O2 Sat by Pulse 98 97 93 Oximetry Constitutional: other (mild distress) Eyes: non-icteric ENT: oropharynx moist Neck: supple Effort: normal Ascultation: Bilateral: diminished breath sounds Cardiovascular: regular rate and rhythm Gastrointestinal: normoactive bowel sounds, soft, non-tender, non-distended Integumentary: normal Extremities: no cyanosis CBC and BMP: 02/13/21 07:27 02/13/21 07:27 ABG, PT/INR, D-dimer: ABG ABG pH 7.437 (7.320-7.450) 02/07/21 14:47 POC ABG pCO2 30.7 mmHg (32.0-48.0) L 02/07/21 14:47 POC ABG pO2 92.6 mmHg (83-108) 02/07/21 14:47 POC ABG HCO3 20.2 02/07/21 14:47 ABG O2 Saturation 96.6 (0-100) 02/07/21 14:47 PT/INR, D-dimer PT 13.8 Sec. (12.2-14.9) 02/07/21 14:07 INR 1.01 (0.87-1.13) 02/07/21 14:07 D-Dimer 5571.21 ng/mlDDU (0-234) H 02/12/21 15:08 Abnormal lab findings: Abnormal Labs 02/07/21 02/07/21 02/07/21 09:30 14:07 14:07 WBC RBC RDW 18.3 H [place] % (Auto) 13.4 H Lymph # (Auto) 0.7 L Seg Neutrophils % 72.3 H Seg Neuts % (Manual) Lymphocytes % (Manual) Monocytes % (Manual) Seg Neutrophils # Man Lymphocytes # (Manual) D-Dimer POC ABG pCO2 ABG Hemoglobin ABG Chloride ABG Glucose VBG pH Carboxyhemoglobin Sodium Chloride Carbon Dioxide BUN 29 H Creatinine 1.4 H Glucose 119 H Calcium Ferritin Lactate Dehydrogenase C-Reactive Protein Total Protein Albumin 3.7 L Arterial Blood Glucose Coronavirus (PCR) Positive A 02/07/21 02/07/21 02/08/21 14:07 14:47 04:37 WBC 1.9 L* RBC 3.59 L RDW 18.3 H [place] % (Auto) Lymph # (Auto) Seg Neutrophils % Seg Neuts % (Manual) Lymphocytes % (Manual) Monocytes % (Manual) Seg Neutrophils # Man 1.3 L Lymphocytes # (Manual) 0.5 L D-Dimer POC ABG pCO2 30.7 L ABG Hemoglobin 9.5 L ABG Chloride 108.0 H ABG Glucose 115 H VBG pH 7.465 H Carboxyhemoglobin 0.3 L Sodium Chloride Carbon Dioxide BUN Creatinine Glucose Calcium Ferritin Lactate Dehydrogenase C-Reactive Protein Total Protein Albumin Arterial Blood Glucose 115 H Coronavirus (PCR) 02/08/21 02/08/21 02/09/21 04:37 18:49 08:25 WBC RBC RDW [place] % (Auto) Lymph # (Auto) Seg Neutrophils % Seg Neuts % (Manual) Lymphocytes % (Manual) Monocytes % (Manual) Seg Neutrophils # Man Lymphocytes # (Manual) D-Dimer POC ABG pCO2 ABG Hemoglobin ABG Chloride ABG Glucose VBG pH Carboxyhemoglobin Sodium 135 L Chloride Carbon Dioxide 20 L 21 L BUN 25 H 25 H 23 H Creatinine Glucose 216 H 155 H 133 H Calcium 8.3 L Ferritin Lactate Dehydrogenase C-Reactive Protein Total Protein Albumin 3.3 L 3.1 L 3.1 L Arterial Blood Glucose Coronavirus (PCR) 02/09/21 02/09/21 02/09/21 14:28 14:28 14:28 WBC RBC RDW [place] % (Auto) Lymph # (Auto) Seg Neutrophils % Seg Neuts % (Manual) Lymphocytes % (Manual) Monocytes % (Manual) Seg Neutrophils # Man Lymphocytes # (Manual) D-Dimer 716.60 H POC ABG pCO2 ABG Hemoglobin ABG Chloride ABG Glucose VBG pH Carboxyhemoglobin Sodium Chloride Carbon Dioxide BUN Creatinine Glucose Calcium Ferritin 766.8 H Lactate Dehydrogenase 392 H C-Reactive Protein 3.40 H Total Protein Albumin Arterial Blood Glucose Coronavirus (PCR) 02/10/21 02/11/21 02/12/21 07:51 07:56 05:28 WBC RBC 3.64 L RDW 18.0 H [place] % (Auto) Lymph # (Auto) Seg Neutrophils % Seg Neuts % (Manual) 79.0 H Lymphocytes % (Manual) 9.0 L Monocytes % (Manual) 10.0 H Seg Neutrophils # Man Lymphocytes # (Manual) 0.5 L D-Dimer POC ABG pCO2 ABG Hemoglobin ABG Chloride ABG Glucose VBG pH Carboxyhemoglobin Sodium Chloride 109.6 H 109.1 H Carbon Dioxide BUN 21 H Creatinine 0.5 L Glucose 103 H 104 H Calcium Ferritin Lactate Dehydrogenase C-Reactive Protein Total Protein 5.7 L 5.5 L Albumin 3.2 L 3.0 L Arterial Blood Glucose Coronavirus (PCR) 02/12/21 02/12/21 02/12/21 15:08 15:08 15:08 WBC RBC RDW [place] % (Auto) Lymph # (Auto) Seg Neutrophils % Seg Neuts % (Manual) Lymphocytes % (Manual) Monocytes % (Manual) Seg Neutrophils # Man Lymphocytes # (Manual) D-Dimer 5571.21 H POC ABG pCO2 ABG Hemoglobin ABG Chloride ABG Glucose VBG pH Carboxyhemoglobin Sodium Chloride Carbon Dioxide BUN Creatinine Glucose Calcium Ferritin 819.1 H Lactate Dehydrogenase 589 H C-Reactive Protein 9.80 H Total Protein Albumin Arterial Blood Glucose Coronavirus (PCR) 02/13/21 02/13/21 02/13/21 06:21 06:21 07:27 WBC 4.1 L RBC 3.49 L 3.47 L RDW 17.8 H 17.9 H [place] % (Auto) Lymph # (Auto) Seg Neutrophils % Seg Neuts % (Manual) Lymphocytes % (Manual) Monocytes % (Manual) Seg Neutrophils # Man Lymphocytes # (Manual) D-Dimer POC ABG pCO2 ABG Hemoglobin ABG Chloride ABG Glucose VBG pH Carboxyhemoglobin Sodium Chloride Carbon Dioxide BUN Creatinine 0.4 L Glucose 105 H Calcium Ferritin Lactate Dehydrogenase C-Reactive Protein Total Protein 5.9 L Albumin 2.8 L Arterial Blood Glucose Coronavirus (PCR) 02/13/21 07:27 WBC RBC RDW [place] % (Auto) Lymph # (Auto) Seg Neutrophils % Seg Neuts % (Manual) Lymphocytes % (Manual) Monocytes % (Manual) Seg Neutrophils # Man Lymphocytes # (Manual) D-Dimer POC ABG pCO2 ABG Hemoglobin ABG Chloride ABG Glucose VBG pH Carboxyhemoglobin Sodium Chloride Carbon Dioxide BUN Creatinine 0.4 L Glucose Calcium Ferritin Lactate Dehydrogenase C-Reactive Protein Total Protein Albumin Arterial Blood Glucose Coronavirus (PCR)
[2021-02-13] MEDS ORDERED: FUROSEMIDE 20 MG/2 ML INJ IV NR (09:30)
[2021-02-13 09:49] LABS: INR 1.24 (0.87-1.13)
[2021-02-13 09:50] LABS: Partial Thromboplastin Time 31.6 Sec. (24.2-36.6)
--- NOTE | 2021-02-13 10:27 | Progress Note ---
Assessment and Plan Assessment and plan: 35-year-old -[place] female who recently diagnosed with COVID-19 presented to the hospital with shortness of breath associated with fatigue malaise and fever. Assessment and plan: -- Acute hypoxemic respiratory failure Due to COVID-19 pneumonia Continue high flow O2 and wean off as tolerated Schedule nebulizer breathing treatment and empiric steroid Pulmonology on board --COVID-19 pneumonia with sepsis -CXR shows patchy parenchymal disease which represent atypical pneumonia -S/p dexamethasone, azithromycin and cefepime in the ED -Placed on dexamethasone for total 10 days and remdesivir total 5 days -Infectious disease consulted, appreciate recommendations -Droplet/contact isolation -Continue SPO2 monitoring -Supplemental oxygen as needed -Pulmonary hygiene -Prone to sleep -Vitamin C, vitamin D, zinc -Anticoagulation per protocol -Lasix IV as needed to prevent pulmonary edema --elevated d-dimer initiate Px dose of eliquis, follow clinically --Acute kidney injury (MAUREEN) with vasomotor nephropathy Creatinine was 1.4 on admission now resolved with IV fluid Continue to follow renal function -- DVT prophylaxis SCD to bilateral lower extremities while in bed, prophylactic anticoagulation per protocol Daily clinical course: 02/08/21: Patient tested positive for COVID-19, will initiate remdesivir for 5 days and dexamethasone for 10 days, ID consulted, pulmonology consulted. Continue supportive care, follow COVID-19 protocol and inflammatory markers to assess disease progression/improvement 02/09/21: Continue dexamethasone and remdesivir, patient remains on high flow O2, wean off O2 as tolerated, follow inflammatory markers. 02/10/21; patient on 25 L 50% FiO2 today, continue dexamethasone and remdesivir. Wean off O2 as tolerated, follow inflammatory markers. Pulmonary and ID following. 02/11/21: Patient on 30 L 90% FiO2 today. Continue to follow clinically. Plan for 1 dose of Lasix today. Continue dexamethasone and remdesivir. 02/12/21: plan for no lasix today. ordered for Prone as tolerated. Continue IV steroids. completed remdesivir today. Follow inflammatory markers, wean off O2 as tolerated. elevated d-dimer: initiate eliquis 5mg bid 02/13/21 Patient with acute respiratory failure due to Covid-19. She is on Oxygen by high flow [place] , now at 30 l/min History Interval history: shortness of breath Asking when she can go home Hospitalist Physical - Physical exam Narrative exam: Gen:Not in acute distress, lying in bed, on Oxygen by high flow NC HEENT:Normocephalic, atraumatic Neck:supple, no JVD Lungs: Bilateral crackles, no rhonchi Heart:S1 and S2 reg, no murmurs, rubs or gallop Abd:Soft, non tender, non distended, normal bowel sounds Ext:No edema. no clubbing, no cyanosis Neuro: Awake,alert, oriented x 3, moves all ext - Constitutional Vitals: Temp Pulse Resp BP Pulse Ox 97.2 F L 94 H 20 114/80 93 02/12/21 21:35 02/12/21 21:35 02/12/21 21:35 02/12/21 21:35 02/13/21 04:00 Results - Labs CBC & Chem 7: 02/13/21 07:27 02/13/21 07:27 Labs: Laboratory Last Values WBC 4.5 K/mm3 (4.5-11.0) 02/13/21 07:27 RBC 3.47 M/mm3 (3.65-5.03) L 02/13/21 07:27 Hgb 10.8 gm/dl (10.1-14.3) 02/13/21 07:27 Hct 32.5 % (30.3-42.9) 02/13/21 07:27 MCV 94 fl (79-97) 02/13/21 07:27 MCH 31 pg (28-32) 02/13/21 07:27 MCHC 33 % (30-34) 02/13/21 07:27 RDW 17.9 % (13.2-15.2) H 02/13/21 07:27 Plt Count 368 K/mm3 (140-440) 02/13/21 07:27 Lymph % (Auto) 14.1 % (13.4-35.0) 02/07/21 14:07 [place] % (Auto) Coil Wrapper 02/13/21 06:21 Eos % (Auto) 0.1 % (0.0-4.3) 02/07/21 14:07 Baso % (Auto) 0.1 % (0.0-1.8) 02/07/21 14:07 Lymph # (Auto) 0.7 K/mm3 (1.2-5.4) L 02/07/21 14:07 [place] # (Auto) 0.7 K/mm3 (0.0-0.8) 02/07/21 14:07 Eos # (Auto) 0.0 K/mm3 (0.0-0.4) 02/07/21 14:07 Baso # (Auto) 0.0 K/mm3 (0.0-0.1) 02/07/21 14:07 Add Manual Diff Complete 02/12/21 05:28 Total Counted 100 02/12/21 05:28 Seg Neutrophils % 72.3 % (40.0-70.0) H 02/07/21 14:07 Seg Neuts % (Manual) 79.0 % (40.0-70.0) H 02/12/21 05:28 Band Neutrophils % 1.0 % 02/12/21 05:28 Lymphocytes % (Manual) 9.0 % (13.4-35.0) L 02/12/21 05:28 Monocytes % (Manual) 10.0 % (0.0-7.3) H 02/12/21 05:28 Eosinophils % (Manual) 1.0 % (0.0-4.3) 02/12/21 05:28 Nucleated RBC % Not Reportable 02/12/21 05:28 Seg Neutrophils # 3.6 K/mm3 (1.8-7.7) 02/07/21 14:07 Seg Neutrophils # Man 4.2 K/mm3 (1.8-7.7) 02/12/21 05:28 Band Neutrophils # 0.1 K/mm3 02/12/21 05:28 Lymphocytes # (Manual) 0.5 K/mm3 (1.2-5.4) L 02/12/21 05:28 Abs React Lymphs (Man) 0.0 K/mm3 02/12/21 05:28 Monocytes # (Manual) 0.5 K/mm3 (0.0-0.8) 02/12/21 05:28 Eosinophils # (Manual) 0.1 K/mm3 (0.0-0.4) 02/12/21 05:28 Basophils # (Manual) 0.0 K/mm3 (0.0-0.1) 02/12/21 05:28 Metamyelocytes # 0.0 K/mm3 02/12/21 05:28 Myelocytes # 0.0 K/mm3 02/12/21 05:28 Promyelocytes # 0.0 K/mm3 02/12/21 05:28 Blast Cells # 0.0 K/mm3 02/12/21 05:28 WBC Morphology Not Reportable 02/12/21 05:28 Hypersegmented Neuts Not Reportable 02/12/21 05:28 Hyposegmented Neuts Not Reportable 02/12/21 05:28 Hypogranular Neuts Not Reportable 02/12/21 05:28 Smudge Cells Not Reportable 02/12/21 05:28 Toxic Granulation Not Reportable 02/12/21 05:28 Toxic Vacuolation Not Reportable 02/12/21 05:28 Dohle Bodies Not Reportable 02/12/21 05:28 Pelger-Huet Anomaly Not Reportable 02/12/21 05:28 Gee Rods Not Reportable 02/12/21 05:28 Platelet Estimate Consistent w auto 02/12/21 05:28 Clumped Platelets Not Reportable 02/12/21 05:28 Plt Clumps, EDTA Not Reportable 02/12/21 05:28 Large Platelets Not Reportable 02/12/21 05:28 Giant Platelets Not Reportable 02/12/21 05:28 Platelet Satelliting Not Reportable 02/12/21 05:28 Plt Morphology Comment Not Reportable 02/12/21 05:28 RBC Morphology Not Reportable 02/12/21 05:28 Dimorphic RBCs Not Reportable 02/12/21 05:28 Polychromasia Not Reportable 02/12/21 05:28 Hypochromasia Not Reportable 02/12/21 05:28 Poikilocytosis Not Reportable 02/12/21 05:28 Anisocytosis Few 02/12/21 05:28 Microcytosis Not Reportable 02/12/21 05:28 Macrocytosis Not Reportable 02/12/21 05:28 Spherocytes Not Reportable 02/12/21 05:28 Pappenheimer Bodies Not Reportable 02/12/21 05:28 Sickle Cells Not Reportable 02/12/21 05:28 Target Cells Not Reportable 02/12/21 05:28 Tear Drop Cells Not Reportable 02/12/21 05:28 Ovalocytes 1+ 02/12/21 05:28 Helmet Cells Not Reportable 02/12/21 05:[address] [place] Bodies Not Reportable 02/12/21 05:28 [place] Rings Not Reportable 02/12/21 05:28 Demi Cells Not Reportable 02/12/21 05:28 Bite Cells Not Reportable 02/12/21 05:28 Crenated Cell Not Reportable 02/12/21 05:28 Elliptocytes Not Reportable 02/12/21 05:28 Acanthocytes (Spur) Not Reportable 02/12/21 05:28 Rouleaux Not Reportable 02/12/21 05:28 Hemoglobin C Crystals Not Reportable 02/12/21 05:28 Schistocytes Not Reportable 02/12/21 05:28 Malaria parasites Not Reportable 02/12/21 05:28 [place] Bodies Not Reportable 02/12/21 05:28 Hem Pathologist Commnt No 02/12/21 05:28 PT 16.2 Sec. (12.2-14.9) H 02/13/21 07:27 INR 1.24 (0.87-1.13) H 02/13/21 07:27 APTT 31.6 Sec. (24.2-36.6) 02/13/21 07:27 D-Dimer 5571.21 ng/mlDDU (0-234) H 02/12/21 15:08 ABG pH 7.437 (7.320-7.450) 02/07/21 14:47 POC ABG pCO2 30.7 mmHg (32.0-48.0) L 02/07/21 14:47 POC ABG pO2 92.6 mmHg (83-108) 02/07/21 14:47 POC ABG HCO3 20.2 02/07/21 14:47 ABG O2 Saturation 96.6 (0-100) 02/07/21 14:47 POC ABG Base Excess -3.3 02/07/21 14:47 ABG Hemoglobin 9.5 (12.0-17.5) L 02/07/21 14:47 ABG Oxyhemoglobin 96.0 (94-98) 02/07/21 14:47 ABG Methemoglobin 0.3 (0.0-1.5) 02/07/21 14:47 ABG Sodium 139.4 mmol/L (136.0-145.0) 02/07/21 14:47 ABG Potassium 3.7 mmol/L (3.40-4.50) 02/07/21 14:47 ABG Chloride 108.0 mmol/L (98-107) H 02/07/21 14:47 ABG Glucose 115 mg/dL (65-95) H 02/07/21 14:47 VBG pH 7.465 (7.320-7.420) H 02/07/21 14:07 Carboxyhemoglobin 0.3 (0.5-1.5) L 02/07/21 14:47 FiO2 % 32.0 02/07/21 14:47 Sodium 140 mmol/L (137-145) 02/13/21 06:21 Potassium 3.9 mmol/L (3.6-5.0) 02/13/21 06:21 Chloride 103.7 mmol/L (98-107) 02/13/21 06:21 Carbon Dioxide 26 mmol/L (22-30) 02/13/21 06:21 Anion Gap 14 mmol/L 02/13/21 06:21 BUN 16 mg/dL (7-17) 02/13/21 06:21 Creatinine 0.4 mg/dL (0.6-1.2) L 02/13/21 07:27 Estimated GFR > 60 ml/min 02/13/21 07:27 BUN/Creatinine Ratio 40 % 02/13/21 06:21 Glucose 105 mg/dL (65-100) H 02/13/21 06:21 Lactic Acid 0.70 mmol/L (0.7-2.0) 02/07/21 18:30 Calcium 9.0 mg/dL (8.4-10.2) 02/13/21 06:21 Ferritin 819.1 ng/mL (10.0-200.0) H 02/12/21 15:08 Total Bilirubin 0.30 mg/dL (0.1-1.2) 02/13/21 06:21 AST 22 units/L (5-40) 02/13/21 06:21 ALT 16 units/L (7-56) 02/13/21 06:21 Alkaline Phosphatase 60 units/L (35-129) 02/13/21 06:21 Lactate Dehydrogenase 589 units/L (91-180) H 02/12/21 15:08 C-Reactive Protein 9.80 mg/dL (0.00-1.30) H 02/12/21 15:08 Total Protein 5.9 g/dL (6.3-8.2) L 02/13/21 06:21 Albumin 2.8 g/dL (3.9-5) L 02/13/21 06:21 Albumin/Globulin Ratio 0.9 % 02/13/21 06:21 Procalcitonin 0.24 ng/mL (<0.15) 02/12/21 15:08 HCG, Qual Negative (Negative) 02/07/21 14:07 Arterial Blood Glucose 115 mg/dL (65-95) H 02/07/21 14:47 Urine Color Sophie (Yellow) 02/08/21 Unknown Urine Turbidity Clear (Clear) 02/08/21 Unknown Urine pH 6.0 (5.0-7.0) 02/08/21 Unknown Ur Specific [place] 1.026 (1.003-1.030) 02/08/21 Unknown Urine Protein 100 mg/dl mg/dL (Negative) 02/08/21 Unknown Urine Glucose (UA) Neg mg/dL (Negative) 02/08/21 Unknown Urine Ketones Neg mg/dL (Negative) 02/08/21 Unknown Urine Blood Lg (Negative) 02/08/21 Unknown Urine Nitrite Neg (Negative) 02/08/21 Unknown Urine Bilirubin Neg (Negative) 02/08/21 Unknown Urine Urobilinogen < 2.0 mg/dL (<2.0) 02/08/21 Unknown Ur Leukocyte Esterase Neg (Negative) 02/08/21 Unknown Urine WBC (Auto) 6.0 /HPF (0.0-6.0) 02/08/21 Unknown Urine RBC (Auto) 3.0 /HPF (0.0-6.0) 02/08/21 Unknown U Epithel Cells (Auto) 3.0 /HPF (0-13.0) 02/08/21 Unknown Urine Bacteria (Auto) 1+ /HPF (Negative) 02/08/21 Unknown Coronavirus (PCR) Positive (Negative) A 02/07/21 09:30 Microbiology: Microbiology 02/07/21 14:07 Peripheral/Venous Blood Culture - Final NO GROWTH AFTER 5 DAYS 02/07/21 14:07 Peripheral/Venous Blood Culture - Final NO GROWTH AFTER 5 DAYS Farias/IV: Voiding Method Toilet Active Medications - Current Medications Current Medications: Generic Name Dose Route Start Last Admin Trade Name Freq PRN Reason Stop Dose Admin Acetaminophen 650 mg 02/07/21 16:30 Acetaminophen 325 Mg Tab PO Q4H PRN Pain MILD(1-3)/Fever >100.5/TORRES Albuterol 2.5 mg 02/07/21 17:00 Albuterol 2.5 Mg/3 Ml Nebu IH Q4HRT PRN Shortness Of Breath Apixaban 5 mg 02/13/21 10:00 Apixaban 5 Mg Tab PO Q12HR FOSTER Protocol Ascorbic Acid 500 mg 02/07/21 22:00 02/12/21 22:14 Ascorbic Acid 500 Mg Tab PO 500 mg BID FOSTER Administration Cholecalciferol 1,000 unit 02/07/21 17:00 02/12/21 10:24 Cholecalciferol (Vit D3) 1000 Unit (25 Mcg) Tab PO 1,000 unit QDAY FOSTER Administration Dexamethasone 6 mg 02/08/21 10:00 02/12/21 10:24 Dexamethasone 4 Mg/Ml Vial IV 02/16/21 10:01 6 mg Q24HR FOSTER Administration Furosemide 20 mg 02/13/21 09:30 Furosemide 20 Mg/2 Ml Inj IV 02/13/21 12:00 ONCE@0930 NR Guaifenesin 200 mg 02/12/21 11:42 02/13/21 00:52 Guaifenesin 100 Mg/5 Ml Oral Liqd PO 200 mg Q4H PRN Administration Cough Hydromorphone HCl 0.5 mg 02/07/21 16:30 Hydromorphone 1 Mg/1 Ml Inj IV Q12H PRN Pain , Severe (7-10) Ondansetron HCl 4 mg 02/07/21 16:30 Ondansetron 4 Mg/2 Ml Inj IV Q8H PRN Nausea And Vomiting Oxycodone/Acetaminophen 1 tab 02/07/21 16:30 02/10/21 10:35 Oxycodone /Acetaminophen 5-325mg Tab PO 1 tab Q12H PRN Administration Pain, Moderate (4-6) Sodium Chloride 10 ml 02/07/21 22:00 02/12/21 22:15 Sodium Chloride 0.9% 10 Ml Flush Syringe IV 10 ml BID FOSTER Administration Sodium Chloride 10 ml 02/07/21 16:00 Sodium Chloride 0.9% 10 Ml Flush Syringe IV PRN PRN LINE FLUSH Zinc Sulfate 220 mg 02/07/21 22:00 02/12/21 22:14 Zinc Sulfate 220 Mg Cap PO 220 mg BID FOSTER Administration
[2021-02-13] MEDS: CHOLECALCIFEROL (VIT D3) 1000 UNIT (25 mcg) TAB PO SCH (10:59)
[2021-02-13] MEDS: dexAMETHasone 4 MG/ML VIAL IV SCH (10:59)
[2021-02-13] MEDS: ZINC SULFATE 220 MG CAP PO SCH ×2 (10:59→21:03)
[2021-02-13] MEDS: ASCORBIC ACID 500 MG TAB PO SCH ×2 (10:59→21:03)
[2021-02-13] MEDS: APIXABAN 5 MG TAB PO SCH ×2 (10:59→21:03)
--- NOTE | 2021-02-13 14:56 | Progress Note ---
Assessment and Plan Cultures: Blood culture no growth Urine culture no growth A/P: 40-year-old female no past medical history admitted with COVID-19 #Severe COVID-19 pneumonia: Patient presented with a week of symptoms, chest x- ray with diffuse bilateral infiltrates #Acute hypoxemic respiratory failure: Likely secondary to COVID-19 infection. Currently on high flow nasal cannula #Leukopenia: secondary to covid. Resolved Recs: -Dexamethasone 6 mg IV/PO daily for 10 days -Completed Remdesivir -Obtain q48-72h inflammatory markers - ferritin, Ddimer, CRP, LDH -Anticoagulation per hospital protocol -Proning as able Thank you for the consult, we will sign off. Please call if any new questions. Annmarie Lyon MD [facility] ([facility]) O: [phone] F: [phone] Subjective Date of service: 02/13/21 Interval history: Afebrile, normal white count. On high flow nasal cannula. Objective - Exam Narrative Exam: Physical exam deferred to reduce risk of transmission of COVID-19. Please refer to primary team's note. - Constitutional Vitals: Vital Signs Temp Pulse Resp BP Pulse Ox 97.2 F L 94 H 20 114/80 96 02/12/21 21:35 02/12/21 21:35 02/12/21 21:35 02/12/21 21:35 02/13/21 13:32 Temperature -Last 24 Hours Temperature 97.2 F - Labs CBC & Chem 7: 02/13/21 07:27 02/13/21 07:27 Labs: Abnormal lab results 02/12/21 02/12/21 02/12/21 Range/Units 15:08 15:08 15:08 WBC (4.5-11.0) K/mm3 RBC (3.65-5.03) M/mm3 RDW (13.2-15.2) % PT (12.2-14.9) Sec. INR (0.87-1.13) D-Dimer 5571.21 H (0-234) ng/mlDDU Creatinine (0.6-1.2) mg/dL Glucose (65-100) mg/dL Ferritin 819.1 H (10.0-200.0) ng/mL Lactate Dehydrogenase 589 H (91-180) units/L C-Reactive Protein 9.80 H (0.00-1.30) mg/dL Total Protein (6.3-8.2) g/dL Albumin (3.9-5) g/dL 02/13/21 02/13/21 02/13/21 Range/Units 06:21 06:21 07:27 WBC 4.1 L (4.5-11.0) K/mm3 RBC 3.49 L 3.47 L (3.65-5.03) M/mm3 RDW 17.8 H 17.9 H (13.2-15.2) % PT (12.2-14.9) Sec. INR (0.87-1.13) D-Dimer (0-234) ng/mlDDU Creatinine 0.4 L (0.6-1.2) mg/dL Glucose 105 H (65-100) mg/dL Ferritin (10.0-200.0) ng/mL Lactate Dehydrogenase (91-180) units/L C-Reactive Protein (0.00-1.30) mg/dL Total Protein 5.9 L (6.3-8.2) g/dL Albumin 2.8 L (3.9-5) g/dL 02/13/21 02/13/21 Range/Units 07:27 07:27 WBC (4.5-11.0) K/mm3 RBC (3.65-5.03) M/mm3 RDW (13.2-15.2) % PT 16.2 H (12.2-14.9) Sec. INR 1.24 H (0.87-1.13) D-Dimer (0-234) ng/mlDDU Creatinine 0.4 L (0.6-1.2) mg/dL Glucose (65-100) mg/dL Ferritin (10.0-200.0) ng/mL Lactate Dehydrogenase (91-180) units/L C-Reactive Protein (0.00-1.30) mg/dL Total Protein (6.3-8.2) g/dL Albumin (3.9-5) g/dL
[2021-02-13 17:54] LABS: Anisocytosis Few; Total Cells Counted 100
--- NOTE | 2021-02-14 10:18 | Progress Note ---
Assessment and Plan 40 y/o female with acute respiratory failure secondary to cOVID 19 and COVID pneumonia. 02/14/21: Hold on lasix today. Continue IV steroids. Prone if able. Likely will give lasix tomorrow. 02/13/21: Chemistry stable so will give Lasix today. Continue IV steroids. Wean FiO2 for sats >88%. Prone if possible. : Prone as tolerated. Continue IV steroids. Hold on Lasix today, check chemistry tomorrow. Wean FiO2 back down. Guarded prognosis. 1. Ordered the Prone Protocol. Please document if patient prones, refuses to prone or the inability to prone 2. Continue IV steroids 3. Gave lasix today 4. Wean FiO2 and flow as tolerated for sats >88% Subjective Date of service: 02/14/21 Interval history: No acute events. Clinically stable. Oxygen requirements improving. Objective Vital Signs - 12hr 02/14/21 02/14/21 02/14/21 00:33 01:34 03:20 Temperature 97.4 F L Pulse Rate 88 Respiratory 19 Rate Blood Pressure 103/65 O2 Sat by Pulse 100 94 99 Oximetry 02/14/21 02/14/21 06:53 08:30 Temperature 97.7 F Pulse Rate 76 Respiratory 22 18 Rate Blood Pressure 108/78 O2 Sat by Pulse 95 94 Oximetry Constitutional: other (mild distress) Eyes: non-icteric ENT: oropharynx moist Neck: supple Effort: normal Ascultation: Bilateral: diminished breath sounds Cardiovascular: regular rate and rhythm Gastrointestinal: normoactive bowel sounds, soft, non-tender, non-distended Integumentary: normal Extremities: no cyanosis CBC and BMP: 02/13/21 07:27 02/13/21 07:27 ABG, PT/INR, D-dimer: ABG ABG pH 7.437 (7.320-7.450) 02/07/21 14:47 POC ABG pCO2 30.7 mmHg (32.0-48.0) L 02/07/21 14:47 POC ABG pO2 92.6 mmHg (83-108) 02/07/21 14:47 POC ABG HCO3 20.2 02/07/21 14:47 ABG O2 Saturation 96.6 (0-100) 02/07/21 14:47 PT/INR, D-dimer PT 16.2 Sec. (12.2-14.9) H 02/13/21 07:27 INR 1.24 (0.87-1.13) H 02/13/21 07:27 D-Dimer 5571.21 ng/mlDDU (0-234) H 02/12/21 15:08 Abnormal lab findings: Abnormal Labs 02/07/21 02/07/21 02/07/21 09:30 14:07 14:07 WBC RBC RDW 18.3 H [place] % (Auto) 13.4 H Lymph # (Auto) 0.7 L Seg Neutrophils % 72.3 H Seg Neuts % (Manual) Lymphocytes % (Manual) Monocytes % (Manual) Seg Neutrophils # Man Lymphocytes # (Manual) Monocytes # (Manual) PT INR D-Dimer POC ABG pCO2 ABG Hemoglobin ABG Chloride ABG Glucose VBG pH Carboxyhemoglobin Sodium Chloride Carbon Dioxide BUN 29 H Creatinine 1.4 H Glucose 119 H Calcium Ferritin Lactate Dehydrogenase C-Reactive Protein Total Protein Albumin 3.7 L Arterial Blood Glucose Coronavirus (PCR) Positive A 02/07/21 02/07/21 02/08/21 14:07 14:47 04:37 WBC 1.9 L* RBC 3.59 L RDW 18.3 H [place] % (Auto) Lymph # (Auto) Seg Neutrophils % Seg Neuts % (Manual) Lymphocytes % (Manual) Monocytes % (Manual) Seg Neutrophils # Man 1.3 L Lymphocytes # (Manual) 0.5 L Monocytes # (Manual) PT INR D-Dimer POC ABG pCO2 30.7 L ABG Hemoglobin 9.5 L ABG Chloride 108.0 H ABG Glucose 115 H VBG pH 7.465 H Carboxyhemoglobin 0.3 L Sodium Chloride Carbon Dioxide BUN Creatinine Glucose Calcium Ferritin Lactate Dehydrogenase C-Reactive Protein Total Protein Albumin Arterial Blood Glucose 115 H Coronavirus (PCR) 02/08/21 02/08/21 02/09/21 04:37 18:49 08:25 WBC RBC RDW [place] % (Auto) Lymph # (Auto) Seg Neutrophils % Seg Neuts % (Manual) Lymphocytes % (Manual) Monocytes % (Manual) Seg Neutrophils # Man Lymphocytes # (Manual) Monocytes # (Manual) PT INR D-Dimer POC ABG pCO2 ABG Hemoglobin ABG Chloride ABG Glucose VBG pH Carboxyhemoglobin Sodium 135 L Chloride Carbon Dioxide 20 L 21 L BUN 25 H 25 H 23 H Creatinine Glucose 216 H 155 H 133 H Calcium 8.3 L Ferritin Lactate Dehydrogenase C-Reactive Protein Total Protein Albumin 3.3 L 3.1 L 3.1 L Arterial Blood Glucose Coronavirus (PCR) 02/09/21 02/09/21 02/09/21 14:28 14:28 14:28 WBC RBC RDW [place] % (Auto) Lymph # (Auto) Seg Neutrophils % Seg Neuts % (Manual) Lymphocytes % (Manual) Monocytes % (Manual) Seg Neutrophils # Man Lymphocytes # (Manual) Monocytes # (Manual) PT INR D-Dimer 716.60 H POC ABG pCO2 ABG Hemoglobin ABG Chloride ABG Glucose VBG pH Carboxyhemoglobin Sodium Chloride Carbon Dioxide BUN Creatinine Glucose Calcium Ferritin 766.8 H Lactate Dehydrogenase 392 H C-Reactive Protein 3.40 H Total Protein Albumin Arterial Blood Glucose Coronavirus (PCR) 02/10/21 02/11/21 02/12/21 07:51 07:56 05:28 WBC RBC 3.64 L RDW 18.0 H [place] % (Auto) Lymph # (Auto) Seg Neutrophils % Seg Neuts % (Manual) 79.0 H Lymphocytes % (Manual) 9.0 L Monocytes % (Manual) 10.0 H Seg Neutrophils # Man Lymphocytes # (Manual) 0.5 L Monocytes # (Manual) PT INR D-Dimer POC ABG pCO2 ABG Hemoglobin ABG Chloride ABG Glucose VBG pH Carboxyhemoglobin Sodium Chloride 109.6 H 109.1 H Carbon Dioxide BUN 21 H Creatinine 0.5 L Glucose 103 H 104 H Calcium Ferritin Lactate Dehydrogenase C-Reactive Protein Total Protein 5.7 L 5.5 L Albumin 3.2 L 3.0 L Arterial Blood Glucose Coronavirus (PCR) 02/12/21 02/12/21 02/12/21 15:08 15:08 15:08 WBC RBC RDW [place] % (Auto) Lymph # (Auto) Seg Neutrophils % Seg Neuts % (Manual) Lymphocytes % (Manual) Monocytes % (Manual) Seg Neutrophils # Man Lymphocytes # (Manual) Monocytes # (Manual) PT INR D-Dimer 5571.21 H POC ABG pCO2 ABG Hemoglobin ABG Chloride ABG Glucose VBG pH Carboxyhemoglobin Sodium Chloride Carbon Dioxide BUN Creatinine Glucose Calcium Ferritin 819.1 H Lactate Dehydrogenase 589 H C-Reactive Protein 9.80 H Total Protein Albumin Arterial Blood Glucose Coronavirus (PCR) 02/13/21 02/13/21 02/13/21 06:21 06:21 07:27 WBC 4.1 L RBC 3.49 L 3.47 L RDW 17.8 H 17.9 H [place] % (Auto) Lymph # (Auto) Seg Neutrophils % Seg Neuts % (Manual) Lymphocytes % (Manual) Monocytes % (Manual) 21.0 H Seg Neutrophils # Man Lymphocytes # (Manual) 0.6 L Monocytes # (Manual) 0.9 H PT INR D-Dimer POC ABG pCO2 ABG Hemoglobin ABG Chloride ABG Glucose VBG pH Carboxyhemoglobin Sodium Chloride Carbon Dioxide BUN Creatinine 0.4 L Glucose 105 H Calcium Ferritin Lactate Dehydrogenase C-Reactive Protein Total Protein 5.9 L Albumin 2.8 L Arterial Blood Glucose Coronavirus (PCR) 02/13/21 02/13/21 07:27 07:27 WBC RBC RDW [place] % (Auto) Lymph # (Auto) Seg Neutrophils % Seg Neuts % (Manual) Lymphocytes % (Manual) Monocytes % (Manual) Seg Neutrophils # Man Lymphocytes # (Manual) Monocytes # (Manual) PT 16.2 H INR 1.24 H D-Dimer POC ABG pCO2 ABG Hemoglobin ABG Chloride ABG Glucose VBG pH Carboxyhemoglobin Sodium Chloride Carbon Dioxide BUN Creatinine 0.4 L Glucose Calcium Ferritin Lactate Dehydrogenase C-Reactive Protein Total Protein Albumin Arterial Blood Glucose Coronavirus (PCR)
[2021-02-14] MEDS: ZINC SULFATE 220 MG CAP PO SCH ×2 (10:54→21:29)
[2021-02-14] MEDS: APIXABAN 5 MG TAB PO SCH ×2 (10:54→21:29)
[2021-02-14] MEDS: dexAMETHasone 4 MG/ML VIAL IV SCH (10:54)
[2021-02-14] MEDS: CHOLECALCIFEROL (VIT D3) 1000 UNIT (25 mcg) TAB PO SCH (10:54)
[2021-02-14] MEDS: ASCORBIC ACID 500 MG TAB PO SCH ×2 (10:54→21:29)
--- NOTE | 2021-02-14 12:13 | Progress Note ---
Assessment and Plan Assessment and plan: 35-year-old -[place] female who recently diagnosed with COVID-19 presented to the hospital with shortness of breath associated with fatigue malaise and fever. Assessment and plan: -- Acute hypoxemic respiratory failure Due to COVID-19 pneumonia Continue high flow O2 and wean off as tolerated Schedule nebulizer breathing treatment and empiric steroid Pulmonology on board --COVID-19 pneumonia with sepsis -CXR shows patchy parenchymal disease which represent atypical pneumonia -S/p dexamethasone, azithromycin and cefepime in the ED -Placed on dexamethasone for total 10 days and remdesivir total 5 days -Infectious disease consulted, appreciate recommendations -Droplet/contact isolation -Continue SPO2 monitoring -Supplemental oxygen as needed -Pulmonary hygiene -Prone to sleep -Vitamin C, vitamin D, zinc -Anticoagulation per protocol -Lasix IV as needed to prevent pulmonary edema --elevated d-dimer initiate Px dose of eliquis, follow clinically --Acute kidney injury (MAUREEN) with vasomotor nephropathy Creatinine was 1.4 on admission now resolved with IV fluid Continue to follow renal function -- DVT prophylaxis SCD to bilateral lower extremities while in bed, prophylactic anticoagulation per protocol Daily clinical course: 02/08/21: Patient tested positive for COVID-19, will initiate remdesivir for 5 days and dexamethasone for 10 days, ID consulted, pulmonology consulted. Continue supportive care, follow COVID-19 protocol and inflammatory markers to assess disease progression/improvement 02/09/21: Continue dexamethasone and remdesivir, patient remains on high flow O2, wean off O2 as tolerated, follow inflammatory markers. 02/10/21; patient on 25 L 50% FiO2 today, continue dexamethasone and remdesivir. Wean off O2 as tolerated, follow inflammatory markers. Pulmonary and ID following. 02/11/21: Patient on 30 L 90% FiO2 today. Continue to follow clinically. Plan for 1 dose of Lasix today. Continue dexamethasone and remdesivir. 02/12/21: plan for no lasix today. ordered for Prone as tolerated. Continue IV steroids. completed remdesivir today. Follow inflammatory markers, wean off O2 as tolerated. elevated d-dimer: initiate eliquis 5mg bid 02/13/21 Patient with acute respiratory failure due to Covid-19. She is on Oxygen by high flow [place] , now at 30 l/min 02/14/21 Patient with acute respiratory failure due to Covid-19 pneumonia. Still on high flow Oxygen at 30 l/min. I discussed with Resp Therapist to evaluate for weaning. History Interval history: still has shortness of breath Hospitalist Physical - Physical exam Narrative exam: Gen:Not in acute distress, lying in bed, on Oxygen by high flow [place] HEENT:Normocephalic, atraumatic Neck:supple, no JVD Lungs: Bilateral crackles, no rhonchi Heart:S1 and S2 reg, no murmurs, rubs or gallop Abd:Soft, non tender, non distended, normal bowel sounds Ext:No edema. no clubbing, no cyanosis Neuro: Awake,alert, oriented x 3, moves all ext - Constitutional Vitals: Temp Pulse Resp BP Pulse Ox 97.7 F 76 18 108/78 94 02/14/21 06:53 02/14/21 06:53 02/14/21 08:30 02/14/21 06:53 02/14/21 08:30 Results - Labs CBC & Chem 7: 02/13/21 07:27 02/13/21 07:27 Labs: Laboratory Last Values WBC 4.5 K/mm3 (4.5-11.0) 02/13/21 07:27 RBC 3.47 M/mm3 (3.65-5.03) L 02/13/21 07:27 Hgb 10.8 gm/dl (10.1-14.3) 02/13/21 07:27 Hct 32.5 % (30.3-42.9) 02/13/21 07:27 MCV 94 fl (79-97) 02/13/21 07:27 MCH 31 pg (28-32) 02/13/21 07:27 MCHC 33 % (30-34) 02/13/21 07:27 RDW 17.9 % (13.2-15.2) H 02/13/21 07:27 Plt Count 368 K/mm3 (140-440) 02/13/21 07:27 Lymph % (Auto) 14.1 % (13.4-35.0) 02/07/21 14:07 [place] % (Auto) [employer] Manager 02/13/21 06:21 Eos % (Auto) 0.1 % (0.0-4.3) 02/07/21 14:07 Baso % (Auto) 0.1 % (0.0-1.8) 02/07/21 14:07 Lymph # (Auto) 0.7 K/mm3 (1.2-5.4) L 02/07/21 14:07 [place] # (Auto) 0.7 K/mm3 (0.0-0.8) 02/07/21 14:07 Eos # (Auto) 0.0 K/mm3 (0.0-0.4) 02/07/21 14:07 Baso # (Auto) 0.0 K/mm3 (0.0-0.1) 02/07/21 14:07 Add Manual Diff Complete 02/13/21 06:21 Total Counted 100 02/13/21 06:21 Seg Neutrophils % 72.3 % (40.0-70.0) H 02/07/21 14:07 Seg Neuts % (Manual) 61.0 % (40.0-70.0) 02/13/21 06:21 Band Neutrophils % 1.0 % 02/12/21 05:28 Lymphocytes % (Manual) 15.0 % (13.4-35.0) 02/13/21 06:21 Monocytes % (Manual) 21.0 % (0.0-7.3) H 02/13/21 06:21 Eosinophils % (Manual) 2.0 % (0.0-4.3) 02/13/21 06:21 Basophils % (Manual) 1.0 % (0.0-1.8) 02/13/21 06:21 Nucleated RBC % Not Reportable 02/13/21 06:21 Seg Neutrophils # 3.6 K/mm3 (1.8-7.7) 02/07/21 14:07 Seg Neutrophils # Man 2.5 K/mm3 (1.8-7.7) 02/13/21 06:21 Band Neutrophils # 0.0 K/mm3 02/13/21 06:21 Lymphocytes # (Manual) 0.6 K/mm3 (1.2-5.4) L 02/13/21 06:21 Abs React Lymphs (Man) 0.0 K/mm3 02/13/21 06:21 Monocytes # (Manual) 0.9 K/mm3 (0.0-0.8) H 02/13/21 06:21 Eosinophils # (Manual) 0.1 K/mm3 (0.0-0.4) 02/13/21 06:21 Basophils # (Manual) 0.0 K/mm3 (0.0-0.1) 02/13/21 06:21 Metamyelocytes # 0.0 K/mm3 02/13/21 06:21 Myelocytes # 0.0 K/mm3 02/13/21 06:21 Promyelocytes # 0.0 K/mm3 02/13/21 06:21 Blast Cells # 0.0 K/mm3 02/13/21 06:21 WBC Morphology Not Reportable 02/13/21 06:21 Hypersegmented Neuts Not Reportable 02/13/21 06:21 Hyposegmented Neuts Not Reportable 02/13/21 06:21 Hypogranular Neuts Not Reportable 02/13/21 06:21 Smudge Cells Not Reportable 02/13/21 06:21 Toxic Granulation Not Reportable 02/13/21 06:21 Toxic Vacuolation Not Reportable 02/13/21 06:21 Dohle Bodies Not Reportable 02/13/21 06:21 Pelger-Huet Anomaly Not Reportable 02/13/21 06:21 Gee Rods Not Reportable 02/13/21 06:21 Platelet Estimate Not Reportable 02/13/21 06:21 Clumped Platelets Not Reportable 02/13/21 06:21 Plt Clumps, EDTA Not Reportable 02/13/21 06:21 Large Platelets Not Reportable 02/13/21 06:21 Giant Platelets Not Reportable 02/13/21 06:21 Platelet Satelliting Not Reportable 02/13/21 06:21 Plt Morphology Comment Not Reportable 02/13/21 06:21 RBC Morphology Not Reportable 02/13/21 06:21 Dimorphic RBCs Not Reportable 02/13/21 06:21 Polychromasia Not Reportable 02/13/21 06:21 Hypochromasia Not Reportable 02/13/21 06:21 Poikilocytosis Not Reportable 02/13/21 06:21 Anisocytosis Few 02/13/21 06:21 Microcytosis Rare 02/13/21 06:21 Macrocytosis Not Reportable 02/13/21 06:21 Spherocytes Not Reportable 02/13/21 06:21 Pappenheimer Bodies Not Reportable 02/13/21 06:21 Sickle Cells Not Reportable 02/13/21 06:21 Target Cells Not Reportable 02/13/21 06:21 Tear Drop Cells Not Reportable 02/13/21 06:21 Ovalocytes Not Reportable 02/13/21 06:21 Helmet Cells Not Reportable 02/13/21 06:21 Ayon-Mangum Bodies Not Reportable 02/13/21 06:21 Bidwell Rings Not Reportable 02/13/21 06:21 Demi Cells Not Reportable 02/13/21 06:21 Bite Cells Not Reportable 02/13/21 06:21 Crenated Cell Not Reportable 02/13/21 06:21 Elliptocytes Not Reportable 02/13/21 06:21 Acanthocytes (Spur) Not Reportable 02/13/21 06:21 Rouleaux Not Reportable 02/13/21 06:21 Hemoglobin C Crystals Not Reportable 02/13/21 06:21 Schistocytes Not Reportable 02/13/21 06:21 Malaria parasites Not Reportable 02/13/21 06:21 Cody Bodies Not Reportable 02/13/21 06:21 Hem Pathologist Commnt No 02/13/21 06:21 PT 16.2 Sec. (12.2-14.9) H 02/13/21 07:27 INR 1.24 (0.87-1.13) H 02/13/21 07:27 APTT 31.6 Sec. (24.2-36.6) 02/13/21 07:27 D-Dimer 5571.21 ng/mlDDU (0-234) H 02/12/21 15:08 ABG pH 7.437 (7.320-7.450) 02/07/21 14:47 POC ABG pCO2 30.7 mmHg (32.0-48.0) L 02/07/21 14:47 POC ABG pO2 92.6 mmHg (83-108) 02/07/21 14:47 POC ABG HCO3 20.2 02/07/21 14:47 ABG O2 Saturation 96.6 (0-100) 02/07/21 14:47 POC ABG Base Excess -3.3 02/07/21 14:47 ABG Hemoglobin 9.5 (12.0-17.5) L 02/07/21 14:47 ABG Oxyhemoglobin 96.0 (94-98) 02/07/21 14:47 ABG Methemoglobin 0.3 (0.0-1.5) 02/07/21 14:47 ABG Sodium 139.4 mmol/L (136.0-145.0) 02/07/21 14:47 ABG Potassium 3.7 mmol/L (3.40-4.50) 02/07/21 14:47 ABG Chloride 108.0 mmol/L (98-107) H 02/07/21 14:47 ABG Glucose 115 mg/dL (65-95) H 02/07/21 14:47 VBG pH 7.465 (7.320-7.420) H 02/07/21 14:07 Carboxyhemoglobin 0.3 (0.5-1.5) L 02/07/21 14:47 FiO2 % 32.0 02/07/21 14:47 Sodium 140 mmol/L (137-145) 02/13/21 06:21 Potassium 3.9 mmol/L (3.6-5.0) 02/13/21 06:21 Chloride 103.7 mmol/L (98-107) 02/13/21 06:21 Carbon Dioxide 26 mmol/L (22-30) 02/13/21 06:21 Anion Gap 14 mmol/L 02/13/21 06:21 BUN 16 mg/dL (7-17) 02/13/21 06:21 Creatinine 0.4 mg/dL (0.6-1.2) L 02/13/21 07:27 Estimated GFR > 60 ml/min 02/13/21 07:27 BUN/Creatinine Ratio 40 % 02/13/21 06:21 Glucose 105 mg/dL (65-100) H 02/13/21 06:21 Lactic Acid 0.70 mmol/L (0.7-2.0) 02/07/21 18:30 Calcium 9.0 mg/dL (8.4-10.2) 02/13/21 06:21 Ferritin 819.1 ng/mL (10.0-200.0) H 02/12/21 15:08 Total Bilirubin 0.30 mg/dL (0.1-1.2) 02/13/21 06:21 AST 22 units/L (5-40) 02/13/21 06:21 ALT 16 units/L (7-56) 02/13/21 06:21 Alkaline Phosphatase 60 units/L (35-129) 02/13/21 06:21 Lactate Dehydrogenase 589 units/L (91-180) H 02/12/21 15:08 C-Reactive Protein 9.80 mg/dL (0.00-1.30) H 02/12/21 15:08 Total Protein 5.9 g/dL (6.3-8.2) L 02/13/21 06:21 Albumin 2.8 g/dL (3.9-5) L 02/13/21 06:21 Albumin/Globulin Ratio 0.9 % 02/13/21 06:21 Procalcitonin 0.24 ng/mL (<0.15) 02/12/21 15:08 HCG, Qual Negative (Negative) 02/07/21 14:07 Arterial Blood Glucose 115 mg/dL (65-95) H 02/07/21 14:47 Urine Color Sophie (Yellow) 02/08/21 Unknown Urine Turbidity Clear (Clear) 02/08/21 Unknown Urine pH 6.0 (5.0-7.0) 02/08/21 Unknown Ur Specific [place] 1.026 (1.003-1.030) 02/08/21 Unknown Urine Protein 100 mg/dl mg/dL (Negative) 02/08/21 Unknown Urine Glucose (UA) Neg mg/dL (Negative) 02/08/21 Unknown Urine Ketones Neg mg/dL (Negative) 02/08/21 Unknown Urine Blood Lg (Negative) 02/08/21 Unknown Urine Nitrite Neg (Negative) 02/08/21 Unknown Urine Bilirubin Neg (Negative) 02/08/21 Unknown Urine Urobilinogen < 2.0 mg/dL (<2.0) 02/08/21 Unknown Ur Leukocyte Esterase Neg (Negative) 02/08/21 Unknown Urine WBC (Auto) 6.0 /HPF (0.0-6.0) 02/08/21 Unknown Urine RBC (Auto) 3.0 /HPF (0.0-6.0) 02/08/21 Unknown U Epithel Cells (Auto) 3.0 /HPF (0-13.0) 02/08/21 Unknown Urine Bacteria (Auto) 1+ /HPF (Negative) 02/08/21 Unknown Coronavirus (PCR) Positive (Negative) A 02/07/21 09:30 Farias/IV: Voiding Method Toilet Active Medications - Current Medications Current Medications: Generic Name Dose Route Start Last Admin Trade Name Freq PRN Reason Stop Dose Admin Acetaminophen 650 mg 02/07/21 16:30 Acetaminophen 325 Mg Tab PO Q4H PRN Pain MILD(1-3)/Fever >100.5/TORRES Albuterol 2.5 mg 02/07/21 17:00 Albuterol 2.5 Mg/3 Ml Nebu IH Q4HRT PRN Shortness Of Breath Apixaban 5 mg 02/13/21 10:00 02/14/21 10:54 Apixaban 5 Mg Tab PO 5 mg Q12HR FOSTER Administration Protocol Ascorbic Acid 500 mg 02/07/21 22:00 02/14/21 10:54 Ascorbic Acid 500 Mg Tab PO 500 mg BID FOSTER Administration Cholecalciferol 1,000 unit 02/07/21 17:00 02/14/21 10:54 Cholecalciferol (Vit D3) 1000 Unit (25 Mcg) Tab PO 1,000 unit QDAY FOSTER Administration Dexamethasone 6 mg 02/08/21 10:00 02/14/21 10:54 Dexamethasone 4 Mg/Ml Vial IV 02/16/21 10:01 6 mg Q24HR FOSTER Administration Guaifenesin 200 mg 02/12/21 11:42 02/13/21 13:40 Guaifenesin 100 Mg/5 Ml Oral Liqd PO 200 mg Q4H PRN Administration Cough Hydromorphone HCl 0.5 mg 02/07/21 16:30 Hydromorphone 1 Mg/1 Ml Inj IV Q12H PRN Pain , Severe (7-10) Ondansetron HCl 4 mg 02/07/21 16:30 Ondansetron 4 Mg/2 Ml Inj IV Q8H PRN Nausea And Vomiting Oxycodone/Acetaminophen 1 tab 02/07/21 16:30 02/10/21 10:35 Oxycodone /Acetaminophen 5-325mg Tab PO 1 tab Q12H PRN Administration Pain, Moderate (4-6) Sodium Chloride 10 ml 02/07/21 22:00 02/14/21 10:55 Sodium Chloride 0.9% 10 Ml Flush Syringe IV 10 ml BID FOSTER Administration Sodium Chloride 10 ml 02/07/21 16:00 Sodium Chloride 0.9% 10 Ml Flush Syringe IV PRN PRN LINE FLUSH Zinc Sulfate 220 mg 02/07/21 22:00 02/14/21 10:54 Zinc Sulfate 220 Mg Cap PO 220 mg BID FOSTER Administration Nutrition/Malnutrition Assess - Dietary Evaluation Nutrition/Malnutrition Findings: Nutrition Notes Start: 02/13/21 14:38 Freq: Status: Active Protocol: Document 02/13/21 14:38 (Rec: 02/13/21 14:42 [id number]) Nutrition Notes Need for Assessment generated from: LOS Initial or Follow up Assessment Current Diagnosis Acute Kidney Injury, Respiratory Failure Other Pertinent Diagnosis pneu, COVID-19 Current Diet regular Labs/Tests reviewed Pertinent Medications Decadron Height 5 ft 6 in Weight 80 kg [place] Body Weight (kg) 59.09 BMI 28.4 Weight Status Overweight Subjective/Other Information Screen for LOS. Per chart pt eating 0-25% of meals. RN confirms poor intakes. Pt did not answer phone x2. Burn Absent Trauma Absent Current % PO Negligible Minimum of two criteria No physical signs of malnutrition #1 Nutrition Diagnosis Inadequate oral intake Etiology acute illness As Evidenced by Signs and Symptoms pt eating <25% of meals Is patient on ventilator? No Is Patient Ambulatory and/or Out of Bed Yes REE-([facility] [place]-ambulatory/OOB) [ [id number] [id number]] Calculation Used for Recommendations [facility] Additional Notes Protein: (0.8-1g/kg) 64-80g Fluid: 1 ml/kcal Nutrition Intervention Change Diet Order: continue Add Supplement/Snack (indicate name/kcal Ensure Enlive BID /protein ) Provides kCal: 700 Provides Protein (gm) 40 Goal #1 Meet at least 75% of energy and protein needs via PO and ONS Anticipated Discharge Needs: regular Follow-Up By: 02/17/21 Additional Comments FU for assessment, intakes and ONS tolerance
--- NOTE | 2021-02-15 03:49 | Progress Note ---
Assessment and Plan 40 y/o female with acute respiratory failure secondary to cOVID 19 and COVID pneumonia. 02/15/21: Hold lasix again today unless Blood pressure really improves. Proning is needed. Continue IV steroids. Continue anticoagulation. 02/14/21: Hold on lasix today. Continue IV steroids. Prone if able. Likely will give lasix tomorrow. 02/13/21: Chemistry stable so will give Lasix today. Continue IV steroids. Wean FiO2 for sats >88%. Prone if possible. : Prone as tolerated. Continue IV steroids. Hold on Lasix today, jacinto ck chemistry tomorrow. Wean FiO2 back down. Guarded prognosis. 1. Ordered the Prone Protocol. Please document if patient prones, refuses to prone or the inability to prone 2. Continue IV steroids 3. Gave lasix today 4. Wean FiO2 and flow as tolerated for sats >88% Subjective Date of service: 02/15/21 Interval history: Post my eval yesterday oxygen requirement increased up to 90. No documentation as to why. Has since been weaned down to 70 and can be weaned further. Objective Vital Signs - 12hr 02/14/21 02/14/21 02/14/21 17:33 21:05 22:00 Temperature 98.2 F Pulse Rate 77 Respiratory 24 Rate Blood Pressure 94/62 O2 Sat by Pulse 99 100 98 Oximetry 02/14/21 02/15/21 23:04 02:29 Temperature 97.5 F L Pulse Rate 72 Respiratory 18 Rate Blood Pressure 100/70 O2 Sat by Pulse 98 98 Oximetry Constitutional: other (mild distress) Eyes: non-icteric ENT: oropharynx moist Neck: supple Effort: normal Ascultation: Bilateral: diminished breath sounds Cardiovascular: regular rate and rhythm Gastrointestinal: normoactive bowel sounds, soft, non-tender, non-distended Integumentary: normal Extremities: no cyanosis CBC and BMP: 02/13/21 07:27 02/13/21 07:27 ABG, PT/INR, D-dimer: ABG ABG pH 7.437 (7.320-7.450) 02/07/21 14:47 POC ABG pCO2 30.7 mmHg (32.0-48.0) L 02/07/21 14:47 POC ABG pO2 92.6 mmHg (83-108) 02/07/21 14:47 POC ABG HCO3 20.2 02/07/21 14:47 ABG O2 Saturation 96.6 (0-100) 02/07/21 14:47 PT/INR, D-dimer PT 16.2 Sec. (12.2-14.9) H 02/13/21 07:27 INR 1.24 (0.87-1.13) H 02/13/21 07:27 D-Dimer 5571.21 ng/mlDDU (0-234) H 02/12/21 15:08 Abnormal lab findings: Abnormal Labs 02/07/21 02/07/21 02/07/21 09:30 14:07 14:07 WBC RBC RDW 18.3 H [place] % (Auto) 13.4 H Lymph # (Auto) 0.7 L Seg Neutrophils % 72.3 H Seg Neuts % (Manual) Lymphocytes % (Manual) Monocytes % (Manual) Seg Neutrophils # Man Lymphocytes # (Manual) Monocytes # (Manual) PT INR D-Dimer POC ABG pCO2 ABG Hemoglobin ABG Chloride ABG Glucose VBG pH Carboxyhemoglobin Sodium Chloride Carbon Dioxide BUN 29 H Creatinine 1.4 H Glucose 119 H Calcium Ferritin Lactate Dehydrogenase C-Reactive Protein Total Protein Albumin 3.7 L Arterial Blood Glucose Coronavirus (PCR) Positive A 02/07/21 02/07/21 02/08/21 14:07 14:47 04:37 WBC 1.9 L* RBC 3.59 L RDW 18.3 H [place] % (Auto) Lymph # (Auto) Seg Neutrophils % Seg Neuts % (Manual) Lymphocytes % (Manual) Monocytes % (Manual) Seg Neutrophils # Man 1.3 L Lymphocytes # (Manual) 0.5 L Monocytes # (Manual) PT INR D-Dimer POC ABG pCO2 30.7 L ABG Hemoglobin 9.5 L ABG Chloride 108.0 H ABG Glucose 115 H VBG pH 7.465 H Carboxyhemoglobin 0.3 L Sodium Chloride Carbon Dioxide BUN Creatinine Glucose Calcium Ferritin Lactate Dehydrogenase C-Reactive Protein Total Protein Albumin Arterial Blood Glucose 115 H Coronavirus (PCR) 02/08/21 02/08/21 02/09/21 04:37 18:49 08:25 WBC RBC RDW [place] % (Auto) Lymph # (Auto) Seg Neutrophils % Seg Neuts % (Manual) Lymphocytes % (Manual) Monocytes % (Manual) Seg Neutrophils # Man Lymphocytes # (Manual) Monocytes # (Manual) PT INR D-Dimer POC ABG pCO2 ABG Hemoglobin ABG Chloride ABG Glucose VBG pH Carboxyhemoglobin Sodium 135 L Chloride Carbon Dioxide 20 L 21 L BUN 25 H 25 H 23 H Creatinine Glucose 216 H 155 H 133 H Calcium 8.3 L Ferritin Lactate Dehydrogenase C-Reactive Protein Total Protein Albumin 3.3 L 3.1 L 3.1 L Arterial Blood Glucose Coronavirus (PCR) 02/09/21 02/09/21 02/09/21 14:28 14:28 14:28 WBC RBC RDW [place] % (Auto) Lymph # (Auto) Seg Neutrophils % Seg Neuts % (Manual) Lymphocytes % (Manual) Monocytes % (Manual) Seg Neutrophils # Man Lymphocytes # (Manual) Monocytes # (Manual) PT INR D-Dimer 716.60 H POC ABG pCO2 ABG Hemoglobin ABG Chloride ABG Glucose VBG pH Carboxyhemoglobin Sodium Chloride Carbon Dioxide BUN Creatinine Glucose Calcium Ferritin 766.8 H Lactate Dehydrogenase 392 H C-Reactive Protein 3.40 H Total Protein Albumin Arterial Blood Glucose Coronavirus (PCR) 02/10/21 02/11/21 02/12/21 07:51 07:56 05:28 WBC RBC 3.64 L RDW 18.0 H [place] % (Auto) Lymph # (Auto) Seg Neutrophils % Seg Neuts % (Manual) 79.0 H Lymphocytes % (Manual) 9.0 L Monocytes % (Manual) 10.0 H Seg Neutrophils # Man Lymphocytes # (Manual) 0.5 L Monocytes # (Manual) PT INR D-Dimer POC ABG pCO2 ABG Hemoglobin ABG Chloride ABG Glucose VBG pH Carboxyhemoglobin Sodium Chloride 109.6 H 109.1 H Carbon Dioxide BUN 21 H Creatinine 0.5 L Glucose 103 H 104 H Calcium Ferritin Lactate Dehydrogenase C-Reactive Protein Total Protein 5.7 L 5.5 L Albumin 3.2 L 3.0 L Arterial Blood Glucose Coronavirus (PCR) 02/12/21 02/12/21 02/12/21 15:08 15:08 15:08 WBC RBC RDW [place] % (Auto) Lymph # (Auto) Seg Neutrophils % Seg Neuts % (Manual) Lymphocytes % (Manual) Monocytes % (Manual) Seg Neutrophils # Man Lymphocytes # (Manual) Monocytes # (Manual) PT INR D-Dimer 5571.21 H POC ABG pCO2 ABG Hemoglobin ABG Chloride ABG Glucose VBG pH Carboxyhemoglobin Sodium Chloride Carbon Dioxide BUN Creatinine Glucose Calcium Ferritin 819.1 H Lactate Dehydrogenase 589 H C-Reactive Protein 9.80 H Total Protein Albumin Arterial Blood Glucose Coronavirus (PCR) 02/13/21 02/13/21 02/13/21 06:21 06:21 07:27 WBC 4.1 L RBC 3.49 L 3.47 L RDW 17.8 H 17.9 H [place] % (Auto) Lymph # (Auto) Seg Neutrophils % Seg Neuts % (Manual) Lymphocytes % (Manual) Monocytes % (Manual) 21.0 H Seg Neutrophils # Man Lymphocytes # (Manual) 0.6 L Monocytes # (Manual) 0.9 H PT INR D-Dimer POC ABG pCO2 ABG Hemoglobin ABG Chloride ABG Glucose VBG pH Carboxyhemoglobin Sodium Chloride Carbon Dioxide BUN Creatinine 0.4 L Glucose 105 H Calcium Ferritin Lactate Dehydrogenase C-Reactive Protein Total Protein 5.9 L Albumin 2.8 L Arterial Blood Glucose Coronavirus (PCR) 02/13/21 02/13/21 07:27 07:27 WBC RBC RDW [place] % (Auto) Lymph # (Auto) Seg Neutrophils % Seg Neuts % (Manual) Lymphocytes % (Manual) Monocytes % (Manual) Seg Neutrophils # Man Lymphocytes # (Manual) Monocytes # (Manual) PT 16.2 H INR 1.24 H D-Dimer POC ABG pCO2 ABG Hemoglobin ABG Chloride ABG Glucose VBG pH Carboxyhemoglobin Sodium Chloride Carbon Dioxide BUN Creatinine 0.4 L Glucose Calcium Ferritin Lactate Dehydrogenase C-Reactive Protein Total Protein Albumin Arterial Blood Glucose Coronavirus (PCR)
[2021-02-15] MEDS: guaiFENesin 100 MG/5 ML ORAL LIQD PO PRN (09:37)
[2021-02-15] MEDS: CHOLECALCIFEROL (VIT D3) 1000 UNIT (25 mcg) TAB PO SCH (09:37)
[2021-02-15] MEDS: ZINC SULFATE 220 MG CAP PO SCH ×2 (09:37→22:11)
[2021-02-15] MEDS: ASCORBIC ACID 500 MG TAB PO SCH ×2 (09:37→22:11)
[2021-02-15] MEDS: APIXABAN 5 MG TAB PO SCH ×2 (09:37→22:11)
[2021-02-15] MEDS: dexAMETHasone 4 MG/ML VIAL IV SCH (09:40)
--- NOTE | 2021-02-15 10:46 | Progress Note ---
Assessment and Plan Assessment and plan: 35-year-old -[place] female who recently diagnosed with COVID-19 presented to the hospital with shortness of breath associated with fatigue malaise and fever. Assessment and plan: -- Acute hypoxemic respiratory failure Due to COVID-19 pneumonia Continue high flow O2 and wean off as tolerated Schedule nebulizer breathing treatment and empiric steroid Pulmonology on board --COVID-19 pneumonia with sepsis -CXR shows patchy parenchymal disease which represent atypical pneumonia -S/p dexamethasone, azithromycin and cefepime in the ED -Placed on dexamethasone for total 10 days and remdesivir total 5 days -Infectious disease consulted, appreciate recommendations -Droplet/contact isolation -Continue SPO2 monitoring -Supplemental oxygen as needed -Pulmonary hygiene -Prone to sleep -Vitamin C, vitamin D, zinc -Anticoagulation per protocol -Lasix IV as needed to prevent pulmonary edema --elevated d-dimer initiate Px dose of eliquis, follow clinically --Acute kidney injury (MAUREEN) with vasomotor nephropathy Creatinine was 1.4 on admission now resolved with IV fluid Continue to follow renal function -- DVT prophylaxis SCD to bilateral lower extremities while in bed, prophylactic anticoagulation per protocol Daily clinical course: 02/08/21: Patient tested positive for COVID-19, will initiate remdesivir for 5 days and dexamethasone for 10 days, ID consulted, pulmonology consulted. Continue supportive care, follow COVID-19 protocol and inflammatory markers to assess disease progression/improvement 02/09/21: Continue dexamethasone and remdesivir, patient remains on high flow O2, wean off O2 as tolerated, follow inflammatory markers. 02/10/21; patient on 25 L 50% FiO2 today, continue dexamethasone and remdesivir. Wean off O2 as tolerated, follow inflammatory markers. Pulmonary and ID following. 02/11/21: Patient on 30 L 90% FiO2 today. Continue to follow clinically. Plan for 1 dose of Lasix today. Continue dexamethasone and remdesivir. 02/12/21: plan for no lasix today. ordered for Prone as tolerated. Continue IV steroids. completed remdesivir today. Follow inflammatory markers, wean off O2 as tolerated. elevated d-dimer: initiate eliquis 5mg bid 02/13/21 Patient with acute respiratory failure due to Covid-19. She is on Oxygen by high flow [place] , now at 30 l/min 02/14/21 Patient with acute respiratory failure due to Covid-19 pneumonia. Still on high flow Oxygen at 30 l/min. I discussed with Resp Therapist to evaluate for weaning. 02/15/21 Patient with acute respiratory failure due to Covid-19 pneumonia. Still on high flow Oxygen at 30 l/min. She complains of chest pain today. Will get EKG, Chest X ray. Patient on Eliquis. History Interval history: still has shortness of breath Chest pain Hospitalist Physical - Physical exam Narrative exam: Gen:Not in acute distress, lying in bed, on Oxygen by high flow [place] HEENT:Normocephalic, atraumatic Neck:supple, no JVD Lungs: Bilateral crackles, no rhonchi Heart:S1 and S2 reg, no murmurs, rubs or gallop Abd:Soft, non tender, non distended, normal bowel sounds Ext:No edema. no clubbing, no cyanosis Neuro: Awake,alert, oriented x 3, moves all ext - Constitutional Vitals: Temp Pulse Resp BP Pulse Ox 97.5 F L 72 18 100/70 98 02/14/21 23:04 02/14/21 23:04 02/14/21 23:04 02/14/21 23:04 02/15/21 02:29 Results - Labs CBC & Chem 7: 02/13/21 07:27 02/13/21 07:27 Labs: Laboratory Last Values WBC 4.5 K/mm3 (4.5-11.0) 02/13/21 07:27 RBC 3.47 M/mm3 (3.65-5.03) L 02/13/21 07:27 Hgb 10.8 gm/dl (10.1-14.3) 02/13/21 07:27 Hct 32.5 % (30.3-42.9) 02/13/21 07:27 MCV 94 fl (79-97) 02/13/21 07:27 MCH 31 pg (28-32) 02/13/21 07:27 MCHC 33 % (30-34) 02/13/21 07:27 RDW 17.9 % (13.2-15.2) H 02/13/21 07:27 Plt Count 368 K/mm3 (140-440) 02/13/21 07:27 Lymph % (Auto) 14.1 % (13.4-35.0) 02/07/21 14:07 [place] % (Auto) Electrocardiograph Technician 02/13/21 06:21 Eos % (Auto) 0.1 % (0.0-4.3) 02/07/21 14:07 Baso % (Auto) 0.1 % (0.0-1.8) 02/07/21 14:07 Lymph # (Auto) 0.7 K/mm3 (1.2-5.4) L 02/07/21 14:07 [place] # (Auto) 0.7 K/mm3 (0.0-0.8) 02/07/21 14:07 Eos # (Auto) 0.0 K/mm3 (0.0-0.4) 02/07/21 14:07 Baso # (Auto) 0.0 K/mm3 (0.0-0.1) 02/07/21 14:07 Add Manual Diff Complete 02/13/21 06:21 Total Counted 100 02/13/21 06:21 Seg Neutrophils % 72.3 % (40.0-70.0) H 02/07/21 14:07 Seg Neuts % (Manual) 61.0 % (40.0-70.0) 02/13/21 06:21 Band Neutrophils % 1.0 % 02/12/21 05:28 Lymphocytes % (Manual) 15.0 % (13.4-35.0) 02/13/21 06:21 Monocytes % (Manual) 21.0 % (0.0-7.3) H 02/13/21 06:21 Eosinophils % (Manual) 2.0 % (0.0-4.3) 02/13/21 06:21 Basophils % (Manual) 1.0 % (0.0-1.8) 02/13/21 06:21 Nucleated RBC % Not Reportable 02/13/21 06:21 Seg Neutrophils # 3.6 K/mm3 (1.8-7.7) 02/07/21 14:07 Seg Neutrophils # Man 2.5 K/mm3 (1.8-7.7) 02/13/21 06:21 Band Neutrophils # 0.0 K/mm3 02/13/21 06:21 Lymphocytes # (Manual) 0.6 K/mm3 (1.2-5.4) L 02/13/21 06:21 Abs React Lymphs (Man) 0.0 K/mm3 02/13/21 06:21 Monocytes # (Manual) 0.9 K/mm3 (0.0-0.8) H 02/13/21 06:21 Eosinophils # (Manual) 0.1 K/mm3 (0.0-0.4) 02/13/21 06:21 Basophils # (Manual) 0.0 K/mm3 (0.0-0.1) 02/13/21 06:21 Metamyelocytes # 0.0 K/mm3 02/13/21 06:21 Myelocytes # 0.0 K/mm3 02/13/21 06:21 Promyelocytes # 0.0 K/mm3 02/13/21 06:21 Blast Cells # 0.0 K/mm3 02/13/21 06:21 WBC Morphology Not Reportable 02/13/21 06:21 Hypersegmented Neuts Not Reportable 02/13/21 06:21 Hyposegmented Neuts Not Reportable 02/13/21 06:21 Hypogranular Neuts Not Reportable 02/13/21 06:21 Smudge Cells Not Reportable 02/13/21 06:21 Toxic Granulation Not Reportable 02/13/21 06:21 Toxic Vacuolation Not Reportable 02/13/21 06:21 Dohle Bodies Not Reportable 02/13/21 06:21 Pelger-Huet Anomaly Not Reportable 02/13/21 06:21 Gee Rods Not Reportable 02/13/21 06:21 Platelet Estimate Not Reportable 02/13/21 06:21 Clumped Platelets Not Reportable 02/13/21 06:21 Plt Clumps, EDTA Not Reportable 02/13/21 06:21 Large Platelets Not Reportable 02/13/21 06:21 Giant Platelets Not Reportable 02/13/21 06:21 Platelet Satelliting Not Reportable 02/13/21 06:21 Plt Morphology Comment Not Reportable 02/13/21 06:21 RBC Morphology Not Reportable 02/13/21 06:21 Dimorphic RBCs Not Reportable 02/13/21 06:21 Polychromasia Not Reportable 02/13/21 06:21 Hypochromasia Not Reportable 02/13/21 06:21 Poikilocytosis Not Reportable 02/13/21 06:21 Anisocytosis Few 02/13/21 06:21 Microcytosis Rare 02/13/21 06:21 Macrocytosis Not Reportable 02/13/21 06:21 Spherocytes Not Reportable 02/13/21 06:21 Pappenheimer Bodies Not Reportable 02/13/21 06:21 Sickle Cells Not Reportable 02/13/21 06:21 Target Cells Not Reportable 02/13/21 06:21 Tear Drop Cells Not Reportable 02/13/21 06:21 Ovalocytes Not Reportable 02/13/21 06:21 Helmet Cells Not Reportable 02/13/21 06:21 [place] Bodies Not Reportable 02/13/21 06:21 [place] Rings Not Reportable 02/13/21 06:21 [place] Cells Not Reportable 02/13/21 06:21 Bite Cells Not Reportable 02/13/21 06:21 Crenated Cell Not Reportable 02/13/21 06:21 Elliptocytes Not Reportable 02/13/21 06:21 Acanthocytes (Spur) Not Reportable 02/13/21 06:21 Rouleaux Not Reportable 02/13/21 06:21 Hemoglobin C Crystals Not Reportable 02/13/21 06:21 Schistocytes Not Reportable 02/13/21 06:21 Malaria parasites Not Reportable 02/13/21 06:21 [place] Bodies Not Reportable 02/13/21 06:21 Hem Pathologist Commnt No 02/13/21 06:21 PT 16.2 Sec. (12.2-14.9) H 02/13/21 07:27 INR 1.24 (0.87-1.13) H 02/13/21 07:27 APTT 31.6 Sec. (24.2-36.6) 02/13/21 07:27 D-Dimer 5571.21 ng/mlDDU (0-234) H 02/12/21 15:08 ABG pH 7.437 (7.320-7.450) 02/07/21 14:47 POC ABG pCO2 30.7 mmHg (32.0-48.0) L 02/07/21 14:47 POC ABG pO2 92.6 mmHg (83-108) 02/07/21 14:47 POC ABG HCO3 20.2 02/07/21 14:47 ABG O2 Saturation 96.6 (0-100) 02/07/21 14:47 POC ABG Base Excess -3.3 02/07/21 14:47 ABG Hemoglobin 9.5 (12.0-17.5) L 02/07/21 14:47 ABG Oxyhemoglobin 96.0 (94-98) 02/07/21 14:47 ABG Methemoglobin 0.3 (0.0-1.5) 02/07/21 14:47 ABG Sodium 139.4 mmol/L (136.0-145.0) 02/07/21 14:47 ABG Potassium 3.7 mmol/L (3.40-4.50) 02/07/21 14:47 ABG Chloride 108.0 mmol/L (98-107) H 02/07/21 14:47 ABG Glucose 115 mg/dL (65-95) H 02/07/21 14:47 VBG pH 7.465 (7.320-7.420) H 02/07/21 14:07 Carboxyhemoglobin 0.3 (0.5-1.5) L 02/07/21 14:47 FiO2 % 32.0 02/07/21 14:47 Sodium 140 mmol/L (137-145) 02/13/21 06:21 Potassium 3.9 mmol/L (3.6-5.0) 02/13/21 06:21 Chloride 103.7 mmol/L (98-107) 02/13/21 06:21 Carbon Dioxide 26 mmol/L (22-30) 02/13/21 06:21 Anion Gap 14 mmol/L 02/13/21 06:21 BUN 16 mg/dL (7-17) 02/13/21 06:21 Creatinine 0.4 mg/dL (0.6-1.2) L 02/13/21 07:27 Estimated GFR > 60 ml/min 02/13/21 07:27 BUN/Creatinine Ratio 40 % 02/13/21 06:21 Glucose 105 mg/dL (65-100) H 02/13/21 06:21 Lactic Acid 0.70 mmol/L (0.7-2.0) 02/07/21 18:30 Calcium 9.0 mg/dL (8.4-10.2) 02/13/21 06:21 Ferritin 819.1 ng/mL (10.0-200.0) H 02/12/21 15:08 Total Bilirubin 0.30 mg/dL (0.1-1.2) 02/13/21 06:21 AST 22 units/L (5-40) 02/13/21 06:21 ALT 16 units/L (7-56) 02/13/21 06:21 Alkaline Phosphatase 60 units/L (35-129) 02/13/21 06:21 Lactate Dehydrogenase 589 units/L (91-180) H 02/12/21 15:08 C-Reactive Protein 9.80 mg/dL (0.00-1.30) H 02/12/21 15:08 Total Protein 5.9 g/dL (6.3-8.2) L 02/13/21 06:21 Albumin 2.8 g/dL (3.9-5) L 02/13/21 06:21 Albumin/Globulin Ratio 0.9 % 02/13/21 06:21 Procalcitonin 0.24 ng/mL (<0.15) 02/12/21 15:08 HCG, Qual Negative (Negative) 02/07/21 14:07 Arterial Blood Glucose 115 mg/dL (65-95) H 02/07/21 14:47 Urine Color Sophie (Yellow) 02/08/21 Unknown Urine Turbidity Clear (Clear) 02/08/21 Unknown Urine pH 6.0 (5.0-7.0) 02/08/21 Unknown Ur Specific [place] 1.026 (1.003-1.030) 02/08/21 Unknown Urine Protein 100 mg/dl mg/dL (Negative) 02/08/21 Unknown Urine Glucose (UA) Neg mg/dL (Negative) 02/08/21 Unknown Urine Ketones Neg mg/dL (Negative) 02/08/21 Unknown Urine Blood Lg (Negative) 02/08/21 Unknown Urine Nitrite Neg (Negative) 02/08/21 Unknown Urine Bilirubin Neg (Negative) 02/08/21 Unknown Urine Urobilinogen < 2.0 mg/dL (<2.0) 02/08/21 Unknown Ur Leukocyte Esterase Neg (Negative) 02/08/21 Unknown Urine WBC (Auto) 6.0 /HPF (0.0-6.0) 02/08/21 Unknown Urine RBC (Auto) 3.0 /HPF (0.0-6.0) 02/08/21 Unknown U Epithel Cells (Auto) 3.0 /HPF (0-13.0) 02/08/21 Unknown Urine Bacteria (Auto) 1+ /HPF (Negative) 02/08/21 Unknown Coronavirus (PCR) Positive (Negative) A 02/07/21 09:30 Farias/IV: Voiding Method Toilet Active Medications - Current Medications Current Medications: Generic Name Dose Route Start Last Admin Trade Name Freq PRN Reason Stop Dose Admin Acetaminophen 650 mg 02/07/21 16:30 Acetaminophen 325 Mg Tab PO Q4H PRN Pain MILD(1-3)/Fever >100.5/TORRES Albuterol 2.5 mg 02/07/21 17:00 Albuterol 2.5 Mg/3 Ml Nebu IH Q4HRT PRN Shortness Of Breath Apixaban 5 mg 02/13/21 10:00 02/15/21 09:37 Apixaban 5 Mg Tab PO 5 mg Q12HR FOSTER Administration Protocol Ascorbic Acid 500 mg 02/07/21 22:00 02/15/21 09:37 Ascorbic Acid 500 Mg Tab PO 500 mg BID FOSTER Administration Cholecalciferol 1,000 unit 02/07/21 17:00 02/15/21 09:37 Cholecalciferol (Vit D3) 1000 Unit (25 Mcg) Tab PO 1,000 unit QDAY FOSTER Administration Dexamethasone 6 mg 02/08/21 10:00 02/15/21 09:40 Dexamethasone 4 Mg/Ml Vial IV 02/16/21 10:01 6 mg Q24HR FOSTER Administration Guaifenesin 200 mg 02/12/21 11:42 02/15/21 09:37 Guaifenesin 100 Mg/5 Ml Oral Liqd PO 200 mg Q4H PRN Administration Cough Hydromorphone HCl 0.5 mg 02/07/21 16:30 Hydromorphone 1 Mg/1 Ml Inj IV Q12H PRN Pain , Severe (7-10) Ondansetron HCl 4 mg 02/07/21 16:30 Ondansetron 4 Mg/2 Ml Inj IV Q8H PRN Nausea And Vomiting Oxycodone/Acetaminophen 1 tab 02/07/21 16:30 02/10/21 10:35 Oxycodone /Acetaminophen 5-325mg Tab PO 1 tab Q12H PRN Administration Pain, Moderate (4-6) Sodium Chloride 10 ml 02/07/21 22:00 02/15/21 09:40 Sodium Chloride 0.9% 10 Ml Flush Syringe IV 10 ml BID FOSTER Administration Sodium Chloride 10 ml 02/07/21 16:00 Sodium Chloride 0.9% 10 Ml Flush Syringe IV PRN PRN LINE FLUSH Zinc Sulfate 220 mg 02/07/21 22:00 02/15/21 09:37 Zinc Sulfate 220 Mg Cap PO 220 mg BID FOSTER Administration Nutrition/Malnutrition Assess - Dietary Evaluation Nutrition/Malnutrition Findings: Nutrition Notes Start: 02/13/21 14:38 Freq: Status: Active Protocol: Document 02/13/21 14:38 GABRIELLE (Rec: 02/13/21 14:42 GABRIELLE [id number]) Nutrition Notes Need for Assessment generated from: LOS Initial or Follow up Assessment Current Diagnosis Acute Kidney Injury, Respiratory Failure Other Pertinent Diagnosis pneu, COVID-19 Current Diet regular Labs/Tests reviewed Pertinent Medications Decadron Height 5 ft 6 in Weight 80 kg [place] Body Weight (kg) 59.09 BMI 28.4 Weight Status Overweight Subjective/Other Information Screen for LOS. Per chart pt eating 0-25% of meals. RN confirms poor intakes. Pt did not answer phone x2. Burn Absent Trauma Absent Current % PO Negligible Minimum of two criteria No physical signs of malnutrition #1 Nutrition Diagnosis Inadequate oral intake Etiology acute illness As Evidenced by Signs and Symptoms pt eating <25% of meals Is patient on ventilator? No Is Patient Ambulatory and/or Out of Bed Yes REE-([facility]-ambulatory/OOB) [ [id number] [id number]] Calculation Used for Recommendations [facility] Additional Notes Protein: (0.8-1g/kg) 64-80g Fluid: 1 ml/kcal Nutrition Intervention Change Diet Order: continue Add Supplement/Snack (indicate name/kcal Ensure Enlive BID /protein ) Provides kCal: 700 Provides Protein (gm) 40 Goal #1 Meet at least 75% of energy and protein needs via PO and ONS Anticipated Discharge Needs: regular Follow-Up By: 02/17/21 Additional Comments FU for assessment, intakes and ONS tolerance
--- NOTE | 2021-02-15 11:09 | XRay Report ---
CHEST 1 VIEW 02/15/2021 10:31 AM INDICATION / CLINICAL INFORMATION: Chest pain. COMPARISON: 02/07/2021 FINDINGS: SUPPORT DEVICES: None. HEART / MEDIASTINUM: Stable. LUNGS / PLEURA: There is bibasilar airspace disease. It appears improved in the right lung base but w orsened in the left lung base. No pneumothorax. ADDITIONAL FINDINGS: No significant additional findings. IMPRESSION: 1. Bibasilar airspace opacities, slightly improved in the right lung base but slightly worsened in th e left lung base. Signer Name: Dex Lainez MD Signed: 02/15/2021 11:05 AM Workstation Name: [id number]
[2021-02-15 11:31] LABS: Hematocrit 34.7 % (30.3-42.9); Hemoglobin 11.6 gm/dl (10.1-14.3); Mean Corpuscular HGB Conc 34 % (30-34); Mean Corpuscular Volume 94 fl (79-97); Platelet Count 339 K/mm3 (140-440); Red Cell Distribution Width 18.1 % (13.2-15.2)
[2021-02-15 11:51] LABS: Blood Urea Nitrogen 16 mg/dL (7-17); Hemolysis Index 2
[2021-02-15 11:53] LABS: BUN/Creatinine Ratio 32
[2021-02-16] MEDS: dexAMETHasone 4 MG/ML VIAL IV SCH (09:57)
[2021-02-16] MEDS: APIXABAN 5 MG TAB PO SCH ×2 (09:57→21:41)
[2021-02-16] MEDS: CHOLECALCIFEROL (VIT D3) 1000 UNIT (25 mcg) TAB PO SCH (09:57)
[2021-02-16] MEDS: ASCORBIC ACID 500 MG TAB PO SCH ×2 (09:57→21:41)
[2021-02-16] MEDS: ZINC SULFATE 220 MG CAP PO SCH ×2 (09:57→21:41)
--- NOTE | 2021-02-16 10:57 | Progress Note ---
Assessment and Plan Assessment and plan: 35-year-old -[place] female who recently diagnosed with COVID-19 presented to the hospital with shortness of breath associated with fatigue malaise and fever. Assessment and plan: -- Acute hypoxemic respiratory failure Due to COVID-19 pneumonia Continue high flow O2 and wean off as tolerated Schedule nebulizer breathing treatment and empiric steroid Pulmonology on board --COVID-19 pneumonia with sepsis -CXR shows patchy parenchymal disease which represent atypical pneumonia -S/p dexamethasone, azithromycin and cefepime in the ED -Placed on dexamethasone for total 10 days and remdesivir total 5 days -Infectious disease consulted, appreciate recommendations -Droplet/contact isolation -Continue SPO2 monitoring -Supplemental oxygen as needed -Pulmonary hygiene -Prone to sleep -Vitamin C, vitamin D, zinc -Anticoagulation per protocol -Lasix IV as needed to prevent pulmonary edema --elevated d-dimer initiate Px dose of eliquis, follow clinically --Acute kidney injury (MAUREEN) with vasomotor nephropathy Creatinine was 1.4 on admission now resolved with IV fluid Continue to follow renal function -- DVT prophylaxis SCD to bilateral lower extremities while in bed, prophylactic anticoagulation per protocol Daily clinical course: 02/08/21: Patient tested positive for COVID-19, will initiate remdesivir for 5 days and dexamethasone for 10 days, ID consulted, pulmonology consulted. Continue supportive care, follow COVID-19 protocol and inflammatory markers to assess disease progression/improvement 02/09/21: Continue dexamethasone and remdesivir, patient remains on high flow O2, wean off O2 as tolerated, follow inflammatory markers. 02/10/21; patient on 25 L 50% FiO2 today, continue dexamethasone and remdesivir. Wean off O2 as tolerated, follow inflammatory markers. Pulmonary and ID following. 02/11/21: Patient on 30 L 90% FiO2 today. Continue to follow clinically. Plan for 1 dose of Lasix today. Continue dexamethasone and remdesivir. 02/12/21: plan for no lasix today. ordered for Prone as tolerated. Continue IV steroids. completed remdesivir today. Follow inflammatory markers, wean off O2 as tolerated. elevated d-dimer: initiate eliquis 5mg bid 02/13/21 Patient with acute respiratory failure due to Covid-19. She is on Oxygen by high flow [place] , now at 30 l/min 02/14/21 Patient with acute respiratory failure due to Covid-19 pneumonia. Still on high flow Oxygen at 30 l/min. I discussed with Resp Therapist to evaluate for weaning. 02/15/21 Patient with acute respiratory failure due to Covid-19 pneumonia. Still on high flow Oxygen at 30 l/min. She complains of chest pain today. Will get EKG, Chest X ray. Patient on Eliquis. 02/16/21 Patient with acute respiratory failure due to Covid-19 pneumonia. Still on high flow Oxygen at 30 l/min. She complained of chest pain yesterday. Troponins were negative. Chest pain now resolved ., was likely due to Covid- pneumonia Patient on Eliquis. Continue current management. 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 no clubbing, no cyanosis Neuro: Awake,alert, oriented x 3, moves all ext - Constitutional Vitals: Temp Pulse Resp BP Pulse Ox 97.3 F L 50 L 16 96/63 100 02/16/21 03:32 02/16/21 03:32 02/16/21 03:32 02/16/21 03:32 02/16/21 04:34 HEART Score - HEART Score Troponin: Troponin T < 0.010 ng/mL (0.00-0.029) 02/16/21 07:58 Results - Labs CBC & Chem 7: 02/15/21 10:30 02/16/21 06:45 Labs: Laboratory Last Values WBC 7.9 K/mm3 (4.5-11.0) 02/15/21 10:30 RBC 3.70 M/mm3 (3.65-5.03) 02/15/21 10:30 Hgb 11.6 gm/dl (10.1-14.3) 02/15/21 10:30 Hct 34.7 % (30.3-42.9) 02/15/21 10:30 MCV 94 fl (79-97) 02/15/21 10:30 MCH 31 pg (28-32) 02/15/21 10:30 MCHC 34 % (30-34) 02/15/21 10:30 RDW 18.1 % (13.2-15.2) H 02/15/21 10:30 Plt Count 339 K/mm3 (140-440) 02/15/21 10:30 Lymph % (Auto) 14.1 % (13.4-35.0) 02/07/21 14:07 Amador % (Auto) Title Assistant 02/13/21 06:21 Eos % (Auto) 0.1 % (0.0-4.3) 02/07/21 14:07 Baso % (Auto) 0.1 % (0.0-1.8) 02/07/21 14:07 Lymph # (Auto) 0.7 K/mm3 (1.2-5.4) L 02/07/21 14:07 Amador # (Auto) 0.7 K/mm3 (0.0-0.8) 02/07/21 14:07 Eos # (Auto) 0.0 K/mm3 (0.0-0.4) 02/07/21 14:07 Baso # (Auto) 0.0 K/mm3 (0.0-0.1) 02/07/21 14:07 Add Manual Diff Complete 02/13/21 06:21 Total Counted 100 02/13/21 06:21 Seg Neutrophils % 72.3 % (40.0-70.0) H 02/07/21 14:07 Seg Neuts % (Manual) 61.0 % (40.0-70.0) 02/13/21 06:21 Band Neutrophils % 1.0 % 02/12/21 05:28 Lymphocytes % (Manual) 15.0 % (13.4-35.0) 02/13/21 06:21 Monocytes % (Manual) 21.0 % (0.0-7.3) H 02/13/21 06:21 Eosinophils % (Manual) 2.0 % (0.0-4.3) 02/13/21 06:21 Basophils % (Manual) 1.0 % (0.0-1.8) 02/13/21 06:21 Nucleated RBC % Not Reportable 02/13/21 06:21 Seg Neutrophils # 3.6 K/mm3 (1.8-7.7) 02/07/21 14:07 Seg Neutrophils # Man 2.5 K/mm3 (1.8-7.7) 02/13/21 06:21 Band Neutrophils # 0.0 K/mm3 02/13/21 06:21 Lymphocytes # (Manual) 0.6 K/mm3 (1.2-5.4) L 02/13/21 06:21 Abs React Lymphs (Man) 0.0 K/mm3 02/13/21 06:21 Monocytes # (Manual) 0.9 K/mm3 (0.0-0.8) H 02/13/21 06:21 Eosinophils # (Manual) 0.1 K/mm3 (0.0-0.4) 02/13/21 06:21 Basophils # (Manual) 0.0 K/mm3 (0.0-0.1) 02/13/21 06:21 Metamyelocytes # 0.0 K/mm3 02/13/21 06:21 Myelocytes # 0.0 K/mm3 02/13/21 06:21 Promyelocytes # 0.0 K/mm3 02/13/21 06:21 Blast Cells # 0.0 K/mm3 02/13/21 06:21 WBC Morphology Not Reportable 02/13/21 06:21 Hypersegmented Neuts Not Reportable 02/13/21 06:21 Hyposegmented Neuts Not Reportable 02/13/21 06:21 Hypogranular Neuts Not Reportable 02/13/21 06:21 Smudge Cells Not Reportable 02/13/21 06:21 Toxic Granulation Not Reportable 02/13/21 06:21 Toxic Vacuolation Not Reportable 02/13/21 06:21 Dohle Bodies Not Reportable 02/13/21 06:21 Pelger-Huet Anomaly Not Reportable 02/13/21 06:21 Gee Rods Not Reportable 02/13/21 06:21 Platelet Estimate Not Reportable 02/13/21 06:21 Clumped Platelets Not Reportable 02/13/21 06:21 Plt Clumps, EDTA Not Reportable 02/13/21 06:21 Large Platelets Not Reportable 02/13/21 06:21 Giant Platelets Not Reportable 08/12/21 06:21 Platelet Satelliting Not Reportable 02/13/21 06:21 Plt Morphology Comment Not Reportable 02/13/21 06:21 RBC Morphology Not Reportable 02/13/21 06:21 Dimorphic RBCs Not Reportable 02/13/21 06:21 Polychromasia Not Reportable 02/13/21 06:21 Hypochromasia Not Reportable 02/13/21 06:21 Poikilocytosis Not Reportable 02/13/21 06:21 Anisocytosis Few 02/13/21 06:21 Microcytosis Rare 02/13/21 06:21 Macrocytosis Not Reportable 02/13/21 06:21 Spherocytes Not Reportable 02/13/21 06:21 Pappenheimer Bodies Not Reportable 02/13/21 06:21 Sickle Cells Not Reportable 02/13/21 06:21 Target Cells Not Reportable 02/13/21 06:21 Tear Drop Cells Not Reportable 02/13/21 06:21 Ovalocytes Not Reportable 02/13/21 06:21 Helmet Cells Not Reportable 02/13/21 06:21 [place] Bodies Not Reportable 02/13/21 06:21 [place] Rings Not Reportable 02/13/21 06:21 [place] Cells Not Reportable 02/13/21 06:21 Bite Cells Not Reportable 02/13/21 06:21 Crenated Cell Not Reportable 02/13/21 06:21 Elliptocytes Not Reportable 02/13/21 06:21 Acanthocytes (Spur) Not Reportable 02/13/21 06:21 Rouleaux Not Reportable 02/13/21 06:21 Hemoglobin C Crystals Not Reportable 02/13/21 06:21 Schistocytes Not Reportable 02/13/21 06:21 Malaria parasites Not Reportable 02/13/21 06:21 [place] Bodies Not Reportable 02/13/21 06:21 Hem Pathologist Commnt No 02/13/21 06:21 PT 16.2 Sec. (12.2-14.9) H 02/13/21 07:27 INR 1.24 (0.87-1.13) H 02/13/21 07:27 APTT 31.6 Sec. (24.2-36.6) 02/13/21 07:27 D-Dimer 5571.21 ng/mlDDU (0-234) H 02/12/21 15:08 ABG pH 7.437 (7.320-7.450) 02/07/21 14:47 POC ABG pCO2 30.7 mmHg (32.0-48.0) L 02/07/21 14:47 POC ABG pO2 92.6 mmHg (83-108) 02/07/21 14:47 POC ABG HCO3 20.2 02/07/21 14:47 ABG O2 Saturation 96.6 (0-100) 02/07/21 14:47 POC ABG Base Excess -3.3 02/07/21 14:47 ABG Hemoglobin 9.5 (12.0-17.5) L 02/07/21 14:47 ABG Oxyhemoglobin 96.0 (94-98) 02/07/21 14:47 ABG Methemoglobin 0.3 (0.0-1.5) 02/07/21 14:47 ABG Sodium 139.4 mmol/L (136.0-145.0) 02/07/21 14:47 ABG Potassium 3.7 mmol/L (3.40-4.50) 02/07/21 14:47 ABG Chloride 108.0 mmol/L (98-107) H 02/07/21 14:47 ABG Glucose 115 mg/dL (65-95) H 02/07/21 14:47 VBG pH 7.465 (7.320-7.420) H 02/07/21 14:07 Carboxyhemoglobin 0.3 (0.5-1.5) L 02/07/21 14:47 FiO2 % 32.0 02/07/21 14:47 Sodium 136 mmol/L (137-145) L 02/15/21 10:35 Potassium 3.8 mmol/L (3.6-5.0) 02/15/21 10:35 Chloride 98.0 mmol/L (98-107) 02/15/21 10:35 Carbon Dioxide 27 mmol/L (22-30) 02/15/21 10:35 Anion Gap 15 mmol/L 02/15/21 10:35 BUN 16 mg/dL (7-17) 02/15/21 10:35 Creatinine 0.5 mg/dL (0.6-1.2) L 02/16/21 06:45 Estimated GFR > 60 ml/min 02/16/21 06:45 BUN/Creatinine Ratio 32 % 02/15/21 10:35 Glucose 120 mg/dL (65-100) H 02/15/21 10:35 Lactic Acid 0.70 mmol/L (0.7-2.0) 02/07/21 18:30 Calcium 9.0 mg/dL (8.4-10.2) 02/15/21 10:35 Ferritin 819.1 ng/mL (10.0-200.0) H 02/12/21 15:08 Total Bilirubin 0.30 mg/dL (0.1-1.2) 02/13/21 06:21 AST 22 units/L (5-40) 02/13/21 06:21 ALT 16 units/L (7-56) 02/13/21 06:21 Alkaline Phosphatase 60 units/L (35-129) 02/13/21 06:21 Lactate Dehydrogenase 589 units/L (91-180) H 02/12/21 15:08 Troponin T < 0.010 ng/mL (0.00-0.029) 02/16/21 07:58 C-Reactive Protein 9.80 mg/dL (0.00-1.30) H 02/12/21 15:08 Total Protein 5.9 g/dL (6.3-8.2) L 02/13/21 06:21 Albumin 2.8 g/dL (3.9-5) L 02/13/21 06:21 Albumin/Globulin Ratio 0.9 % 02/13/21 06:21 Procalcitonin 0.24 ng/mL (<0.15) 02/12/21 15:08 HCG, Qual Negative (Negative) 02/07/21 14:07 Arterial Blood Glucose 115 mg/dL (65-95) H 02/07/21 14:47 Urine Color Sophie (Yellow) 02/08/21 Unknown Urine Turbidity Clear (Clear) 02/08/21 Unknown Urine pH 6.0 (5.0-7.0) 02/08/21 Unknown Ur Specific [place] 1.026 (1.003-1.030) 02/08/21 Unknown Urine Protein 100 mg/dl mg/dL (Negative) 02/08/21 Unknown Urine Glucose (UA) Neg mg/dL (Negative) 02/08/21 Unknown Urine Ketones Neg mg/dL (Negative) 02/08/21 Unknown Urine Blood Lg (Negative) 02/08/21 Unknown Urine Nitrite Neg (Negative) 02/08/21 Unknown Urine Bilirubin Neg (Negative) 02/08/21 Unknown Urine Urobilinogen < 2.0 mg/dL (<2.0) 02/08/21 Unknown Ur Leukocyte Esterase Neg (Negative) 02/08/21 Unknown Urine WBC (Auto) 6.0 /HPF (0.0-6.0) 02/08/21 Unknown Urine RBC (Auto) 3.0 /HPF (0.0-6.0) 02/08/21 Unknown U Epithel Cells (Auto) 3.0 /HPF (0-13.0) 02/08/21 Unknown Urine Bacteria (Auto) 1+ /HPF (Negative) 02/08/21 Unknown Coronavirus (PCR) Positive (Negative) A 02/07/21 09:30 Farias/IV: Voiding Method Toilet Active Medications - Current Medications Current Medications: Generic Name Dose Route Start Last Admin Trade Name Freq PRN Reason Stop Dose Admin Acetaminophen 650 mg 02/07/21 16:30 Acetaminophen 325 Mg Tab PO Q4H PRN Pain MILD(1-3)/Fever >100.5/TORRES Albuterol 2.5 mg 02/07/21 17:00 Albuterol 2.5 Mg/3 Ml Nebu IH Q4HRT PRN Shortness Of Breath Apixaban 5 mg 02/13/21 10:00 02/16/21 09:57 Apixaban 5 Mg Tab PO 5 mg Q12HR FOSTER Administration Protocol Ascorbic Acid 500 mg 02/07/21 22:00 02/16/21 09:57 Ascorbic Acid 500 Mg Tab PO 500 mg BID FOSTER Administration Cholecalciferol 1,000 unit 02/07/21 17:00 02/16/21 09:57 Cholecalciferol (Vit D3) 1000 Unit (25 Mcg) Tab PO 1,000 unit QDAY FOSTER Administration Guaifenesin 200 mg 02/12/21 11:42 02/15/21 09:37 Guaifenesin 100 Mg/5 Ml Oral Liqd PO 200 mg Q4H PRN Administration Cough Hydromorphone HCl 0.5 mg 02/07/21 16:30 Hydromorphone 1 Mg/1 Ml Inj IV Q12H PRN Pain , Severe (7-10) Ondansetron HCl 4 mg 02/07/21 16:30 Ondansetron 4 Mg/2 Ml Inj IV Q8H PRN Nausea And Vomiting Oxycodone/Acetaminophen 1 tab 02/07/21 16:30 02/10/21 10:35 Oxycodone /Acetaminophen 5-325mg Tab PO 1 tab Q12H PRN Administration Pain, Moderate (4-6) Sodium Chloride 10 ml 02/07/21 22:00 02/16/21 09:58 Sodium Chloride 0.9% 10 Ml Flush Syringe IV 10 ml BID FOSTER Administration Sodium Chloride 10 ml 02/07/21 16:00 Sodium Chloride 0.9% 10 Ml Flush Syringe IV PRN PRN LINE FLUSH Zinc Sulfate 220 mg 02/07/21 22:00 02/16/21 09:57 Zinc Sulfate 220 Mg Cap PO 220 mg BID FOSTER Administration Nutrition/Malnutrition Assess - Dietary Evaluation Nutrition/Malnutrition Findings: Nutrition Notes Start: 02/13/21 14:38 Freq: Status: Active Protocol: Document 02/13/21 14:38 (Rec: 02/13/21 14:42 [id number]) Nutrition Notes Need for Assessment generated from: LOS Initial or Follow up Assessment Current Diagnosis Acute Kidney Injury, Respiratory Failure Other Pertinent Diagnosis pneu, COVID-19 Current Diet regular Labs/Tests reviewed Pertinent Medications Decadron Height 5 ft 6 in Weight 80 kg [place] Body Weight (kg) 59.09 BMI 28.4 Weight Status Overweight Subjective/Other Information Screen for LOS. Per chart pt eating 0-25% of meals. RN confirms poor intakes. Pt did not answer phone x2. Burn Absent Trauma Absent Current % PO Negligible Minimum of two criteria No physical signs of malnutrition #1 Nutrition Diagnosis Inadequate oral intake Etiology acute illness As Evidenced by Signs and Symptoms pt eating <25% of meals Is patient on ventilator? No Is Patient Ambulatory and/or Out of Bed Yes REE-([facility]-ambulatory/OOB) [ [id number] [id number]] Calculation Used for Recommendations [facility] Additional Notes Protein: (0.8-1g/kg) 64-80g Fluid: 1 ml/kcal Nutrition Intervention Change Diet Order: continue Add Supplement/Snack (indicate name/kcal Ensure Enlive BID /protein ) Provides kCal: 700 Provides Protein (gm) 40 Goal #1 Meet at least 75% of energy and protein needs via PO and ONS Anticipated Discharge Needs: regular Follow-Up By: 02/17/21 Additional Comments FU for assessment, intakes and ONS tolerance
--- NOTE | 2021-02-16 12:38 | Progress Note ---
Assessment and Plan 40 y/o female with acute respiratory failure secondary to cOVID 19 and COVID pneumonia. 02/16/21: Will place on Prednisone now that Dex is done as she is still requiring high flow nasal cannula. Prone if possible. Continue anticoagulati on. Hold on lasix therapy again today. 02/15/21: Hold lasix again today unless Blood pressure really improves. Proning is needed. Continue IV steroids. Continue anticoagulation. 02/14/21: Hold on lasix today. Continue IV steroids. Prone if able. Likely will give lasix tomorrow. 02/13/21: Chemistry stable so will give Lasix today. Continue IV steroids. Wean FiO2 for sats >88%. Prone if possible. : Prone as tolerated. Continue IV steroids. Hold on Lasix today, check chemistry tomorrow. Wean FiO2 back down. Guarded prognosis. 1. Ordered the Prone Protocol. Please document if patient prones, refuses to prone or the inability to prone 2. Continue IV steroids 3. Gave lasix today 4. Wean FiO2 and flow as tolerated for sats >88% Subjective Date of service: 02/16/21 Interval history: Remains on HFNC, no weaning atttempts. Good sats. Steroids ended today. Objective Vital Signs - 12hr 02/16/21 02/16/21 03:32 04:34 Temperature 97.3 F L Pulse Rate 50 L Respiratory 16 Rate Blood Pressure 96/63 O2 Sat by Pulse 100 100 Oximetry Constitutional: other (mild distress) Eyes: non-icteric ENT: oropharynx moist Neck: supple Effort: normal Ascultation: Bilateral: diminished breath sounds Cardiovascular: regular rate and rhythm Gastrointestinal: normoactive bowel sounds, soft, non-tender, non-distended Integumentary: normal Extremities: no cyanosis CBC and BMP: 02/15/21 10:30 02/16/21 06:45 ABG, PT/INR, D-dimer: ABG ABG pH 7.437 (7.320-7.450) 02/07/21 14:47 POC ABG pCO2 30.7 mmHg (32.0-48.0) L 02/07/21 14:47 POC ABG pO2 92.6 mmHg (83-108) 02/07/21 14:47 POC ABG HCO3 20.2 02/07/21 14:47 ABG O2 Saturation 96.6 (0-100) 02/07/21 14:47 PT/INR, D-dimer PT 16.2 Sec. (12.2-14.9) H 02/13/21 07:27 INR 1.24 (0.87-1.13) H 02/13/21 07:27 D-Dimer 5571.21 ng/mlDDU (0-234) H 02/12/21 15:08 Abnormal lab findings: Abnormal Labs 02/07/21 02/07/21 02/07/21 09:30 14:07 14:07 WBC RBC RDW 18.3 H Dunn % (Auto) 13.4 H Lymph # (Auto) 0.7 L Seg Neutrophils % 72.3 H Seg Neuts % (Manual) Lymphocytes % (Manual) Monocytes % (Manual) Seg Neutrophils # Man Lymphocytes # (Manual) Monocytes # (Manual) PT INR D-Dimer POC ABG pCO2 ABG Hemoglobin ABG Chloride ABG Glucose VBG pH Carboxyhemoglobin Sodium Chloride Carbon Dioxide BUN 29 H Creatinine 1.4 H Glucose 119 H Calcium Ferritin Lactate Dehydrogenase C-Reactive Protein Total Protein Albumin 3.7 L Arterial Blood Glucose Coronavirus (PCR) Positive A 02/07/21 02/07/21 02/08/21 14:07 14:47 04:37 WBC 1.9 L* RBC 3.59 L RDW 18.3 H Dunn % (Auto) Lymph # (Auto) Seg Neutrophils % Seg Neuts % (Manual) Lymphocytes % (Manual) Monocytes % (Manual) Seg Neutrophils # Man 1.3 L Lymphocytes # (Manual) 0.5 L Monocytes # (Manual) PT INR D-Dimer POC ABG pCO2 30.7 L ABG Hemoglobin 9.5 L ABG Chloride 108.0 H ABG Glucose 115 H VBG pH 7.465 H Carboxyhemoglobin 0.3 L Sodium Chloride Carbon Dioxide BUN Creatinine Glucose Calcium Ferritin Lactate Dehydrogenase C-Reactive Protein Total Protein Albumin Arterial Blood Glucose 115 H Coronavirus (PCR) 02/08/21 02/08/21 02/09/21 04:37 18:49 08:25 WBC RBC RDW [place] % (Auto) Lymph # (Auto) Seg Neutrophils % Seg Neuts % (Manual) Lymphocytes % (Manual) Monocytes % (Manual) Seg Neutrophils # Man Lymphocytes # (Manual) Monocytes # (Manual) PT INR D-Dimer POC ABG pCO2 ABG Hemoglobin ABG Chloride ABG Glucose VBG pH Carboxyhemoglobin Sodium 135 L Chloride Carbon Dioxide 20 L 21 L BUN 25 H 25 H 23 H Creatinine Glucose 216 H 155 H 133 H Calcium 8.3 L Ferritin Lactate Dehydrogenase C-Reactive Protein Total Protein Albumin 3.3 L 3.1 L 3.1 L Arterial Blood Glucose Coronavirus (PCR) 02/09/21 02/09/21 02/09/21 14:28 14:28 14:28 WBC RBC RDW [place] % (Auto) Lymph # (Auto) Seg Neutrophils % Seg Neuts % (Manual) Lymphocytes % (Manual) Monocytes % (Manual) Seg Neutrophils # Man Lymphocytes # (Manual) Monocytes # (Manual) PT INR D-Dimer 716.60 H POC ABG pCO2 ABG Hemoglobin ABG Chloride ABG Glucose VBG pH Carboxyhemoglobin Sodium Chloride Carbon Dioxide BUN Creatinine Glucose Calcium Ferritin 766.8 H Lactate Dehydrogenase 392 H C-Reactive Protein 3.40 H Total Protein Albumin Arterial Blood Glucose Coronavirus (PCR) 02/10/21 02/11/21 02/12/21 07:51 07:56 05:28 WBC RBC 3.64 L RDW 18.0 H [place] % (Auto) Lymph # (Auto) Seg Neutrophils % Seg Neuts % (Manual) 79.0 H Lymphocytes % (Manual) 9.0 L Monocytes % (Manual) 10.0 H Seg Neutrophils # Man Lymphocytes # (Manual) 0.5 L Monocytes # (Manual) PT INR D-Dimer POC ABG pCO2 ABG Hemoglobin ABG Chloride ABG Glucose VBG pH Carboxyhemoglobin Sodium Chloride 109.6 H 109.1 H Carbon Dioxide BUN 21 H Creatinine 0.5 L Glucose 103 H 104 H Calcium Ferritin Lactate Dehydrogenase C-Reactive Protein Total Protein 5.7 L 5.5 L Albumin 3.2 L 3.0 L Arterial Blood Glucose Coronavirus (PCR) 02/12/21 02/12/21 02/12/21 15:08 15:08 15:08 WBC RBC RDW [place] % (Auto) Lymph # (Auto) Seg Neutrophils % Seg Neuts % (Manual) Lymphocytes % (Manual) Monocytes % (Manual) Seg Neutrophils # Man Lymphocytes # (Manual) Monocytes # (Manual) PT INR D-Dimer 5571.21 H POC ABG pCO2 ABG Hemoglobin ABG Chloride ABG Glucose VBG pH Carboxyhemoglobin Sodium Chloride Carbon Dioxide BUN Creatinine Glucose Calcium Ferritin 819.1 H Lactate Dehydrogenase 589 H C-Reactive Protein 9.80 H Total Protein Albumin Arterial Blood Glucose Coronavirus (PCR) 02/13/21 02/13/21 02/13/21 06:21 06:21 07:27 WBC 4.1 L RBC 3.49 L 3.47 L RDW 17.8 H 17.9 H [place] % (Auto) Lymph # (Auto) Seg Neutrophils % Seg Neuts % (Manual) Lymphocytes % (Manual) Monocytes % (Manual) 21.0 H Seg Neutrophils # Man Lymphocytes # (Manual) 0.6 L Monocytes # (Manual) 0.9 H PT INR D-Dimer POC ABG pCO2 ABG Hemoglobin ABG Chloride ABG Glucose VBG pH Carboxyhemoglobin Sodium Chloride Carbon Dioxide BUN Creatinine 0.4 L Glucose 105 H Calcium Ferritin Lactate Dehydrogenase C-Reactive Protein Total Protein 5.9 L Albumin 2.8 L Arterial Blood Glucose Coronavirus (PCR) 02/13/21 02/13/21 02/15/21 07:27 07:27 10:30 WBC RBC RDW 18.1 H [place] % (Auto) Lymph # (Auto) Seg Neutrophils % Seg Neuts % (Manual) Lymphocytes % (Manual) Monocytes % (Manual) Seg Neutrophils # Man Lymphocytes # (Manual) Monocytes # (Manual) PT 16.2 H INR 1.24 H D-Dimer POC ABG pCO2 ABG Hemoglobin ABG Chloride ABG Glucose VBG pH Carboxyhemoglobin Sodium Chloride Carbon Dioxide BUN Creatinine 0.4 L Glucose Calcium Ferritin Lactate Dehydrogenase C-Reactive Protein Total Protein Albumin Arterial Blood Glucose Coronavirus (PCR) 02/15/21 02/16/21 10:35 06:45 WBC RBC RDW [place] % (Auto) Lymph # (Auto) Seg Neutrophils % Seg Neuts % (Manual) Lymphocytes % (Manual) Monocytes % (Manual) Seg Neutrophils # Man Lymphocytes # (Manual) Monocytes # (Manual) PT INR D-Dimer POC ABG pCO2 ABG Hemoglobin ABG Chloride ABG Glucose VBG pH Carboxyhemoglobin Sodium 136 L Chloride Carbon Dioxide BUN Creatinine 0.5 L 0.5 L Glucose 120 H Calcium Ferritin Lactate Dehydrogenase C-Reactive Protein Total Protein Albumin Arterial Blood Glucose Coronavirus (PCR)
[2021-02-17 06:35] LABS: Hematocrit 33.7 % (30.3-42.9); Hemoglobin 11.3 gm/dl (10.1-14.3); Mean Corpuscular HGB Conc 34 % (30-34); Mean Corpuscular Volume 94 fl (79-97); Platelet Count 400 K/mm3 (140-440); Red Cell Distribution Width 17.7 % (13.2-15.2)
--- NOTE | 2021-02-17 10:22 | Progress Note ---
Assessment and Plan 40 y/o female with acute respiratory failure secondary to cOVID 19 and COVID pneumonia. 02/17/21: Continue to wean. Continue steroids. Hold lasix. 02/16/21: Will place on Prednisone now that Dex is done as she is still requiring high flow nasal cannula. Prone if possible. Continue anticoagulation. Hold on lasix therapy again today. 02/15/21: Hold lasix again today unless Blood pressure really improves. Proning is needed. Continue IV steroids. Continue anticoagulation. 02/14/21: Hold on lasix today. Continue IV steroids. Prone if able. Likely will give lasix tomorrow. 02/13/21: Chemistry stable so will give Lasix today. Continue IV steroids. Wean FiO2 for sats >88%. Prone if possible. : Prone as tolerated. Continue IV steroids. Hold on Lasix today, check chemistry tomorrow. Wean FiO2 back down. Guarded prognosis. 1. Ordered the Prone Protocol. Please document if patient prones, refuses to prone or the inability to prone 2. Continue IV steroids 3. Gave lasix today 4. Wean FiO2 and flow as tolerated for sats >88% Subjective Date of service: 02/17/21 Interval history: Down to 20 and 35. Good sats. No acute events overnight. Objective Vital Signs - 12hr 02/16/21 02/17/21 02/17/21 22:00 01:31 04:58 Temperature 97.4 F L Pulse Rate 66 Respiratory 16 Rate Blood Pressure 111/83 O2 Sat by Pulse 98 95 96 Oximetry Constitutional: other (mild distress) Eyes: non-icteric ENT: oropharynx moist Neck: supple Effort: normal Ascultation: Bilateral: diminished breath sounds Cardiovascular: regular rate and rhythm Gastrointestinal: normoactive bowel sounds, soft, non-tender, non-distended Integumentary: normal Extremities: no cyanosis CBC and BMP: 02/18/21 06:24 02/18/21 06:24 ABG, PT/INR, D-dimer: ABG ABG pH 7.437 (7.320-7.450) 02/07/21 14:47 POC ABG pCO2 30.7 mmHg (32.0-48.0) L 02/07/21 14:47 POC ABG pO2 92.6 mmHg (83-108) 02/07/21 14:47 POC ABG HCO3 20.2 02/07/21 14:47 ABG O2 Saturation 96.6 (0-100) 02/07/21 14:47 PT/INR, D-dimer PT 16.2 Sec. (12.2-14.9) H 02/13/21 07:27 INR 1.24 (0.87-1.13) H 02/13/21 07:27 D-Dimer 5571.21 ng/mlDDU (0-234) H 02/12/21 15:08 Abnormal lab findings: Abnormal Labs 02/07/21 02/07/21 02/07/21 09:30 14:07 14:07 WBC RBC RDW 18.3 H [place] % (Auto) 13.4 H Lymph # (Auto) 0.7 L Seg Neutrophils % 72.3 H Seg Neuts % (Manual) Lymphocytes % (Manual) Monocytes % (Manual) Seg Neutrophils # Man Lymphocytes # (Manual) Monocytes # (Manual) PT INR D-Dimer POC ABG pCO2 ABG Hemoglobin ABG Chloride ABG Glucose VBG pH Carboxyhemoglobin Sodium Chloride Carbon Dioxide BUN 29 H Creatinine 1.4 H Glucose 119 H Calcium Ferritin Lactate Dehydrogenase C-Reactive Protein Total Protein Albumin 3.7 L Arterial Blood Glucose Coronavirus (PCR) Positive A 02/07/21 02/07/21 02/08/21 14:07 14:47 04:37 WBC 1.9 L* RBC 3.59 L RDW 18.3 H [place] % (Auto) Lymph # (Auto) Seg Neutrophils % Seg Neuts % (Manual) Lymphocytes % (Manual) Monocytes % (Manual) Seg Neutrophils # Man 1.3 L Lymphocytes # (Manual) 0.5 L Monocytes # (Manual) PT INR D-Dimer POC ABG pCO2 30.7 L ABG Hemoglobin 9.5 L ABG Chloride 108.0 H ABG Glucose 115 H VBG pH 7.465 H Carboxyhemoglobin 0.3 L Sodium Chloride Carbon Dioxide BUN Creatinine Glucose Calcium Ferritin Lactate Dehydrogenase C-Reactive Protein Total Protein Albumin Arterial Blood Glucose 115 H Coronavirus (PCR) 02/08/21 02/08/21 02/09/21 04:37 18:49 08:25 WBC RBC RDW [place] % (Auto) Lymph # (Auto) Seg Neutrophils % Seg Neuts % (Manual) Lymphocytes % (Manual) Monocytes % (Manual) Seg Neutrophils # Man Lymphocytes # (Manual) Monocytes # (Manual) PT INR D-Dimer POC ABG pCO2 ABG Hemoglobin ABG Chloride ABG Glucose VBG pH Carboxyhemoglobin Sodium 135 L Chloride Carbon Dioxide 20 L 21 L BUN 25 H 25 H 23 H Creatinine Glucose 216 H 155 H 133 H Calcium 8.3 L Ferritin Lactate Dehydrogenase C-Reactive Protein Total Protein Albumin 3.3 L 3.1 L 3.1 L Arterial Blood Glucose Coronavirus (PCR) 02/09/21 02/09/21 02/09/21 14:28 14:28 14:28 WBC RBC RDW [place] % (Auto) Lymph # (Auto) Seg Neutrophils % Seg Neuts % (Manual) Lymphocytes % (Manual) Monocytes % (Manual) Seg Neutrophils # Man Lymphocytes # (Manual) Monocytes # (Manual) PT INR D-Dimer 716.60 H POC ABG pCO2 ABG Hemoglobin ABG Chloride ABG Glucose VBG pH Carboxyhemoglobin Sodium Chloride Carbon Dioxide BUN Creatinine Glucose Calcium Ferritin 766.8 H Lactate Dehydrogenase 392 H C-Reactive Protein 3.40 H Total Protein Albumin Arterial Blood Glucose Coronavirus (PCR) 02/10/21 02/11/21 02/12/21 07:51 07:56 05:28 WBC RBC 3.64 L RDW 18.0 H [place] % (Auto) Lymph # (Auto) Seg Neutrophils % Seg Neuts % (Manual) 79.0 H Lymphocytes % (Manual) 9.0 L Monocytes % (Manual) 10.0 H Seg Neutrophils # Man Lymphocytes # (Manual) 0.5 L Monocytes # (Manual) PT INR D-Dimer POC ABG pCO2 ABG Hemoglobin ABG Chloride ABG Glucose VBG pH Carboxyhemoglobin Sodium Chloride 109.6 H 109.1 H Carbon Dioxide BUN 21 H Creatinine 0.5 L Glucose 103 H 104 H Calcium Ferritin Lactate Dehydrogenase C-Reactive Protein Total Protein 5.7 L 5.5 L Albumin 3.2 L 3.0 L Arterial Blood Glucose Coronavirus (PCR) 02/12/21 02/12/21 02/12/21 15:08 15:08 15:08 WBC RBC RDW [place] % (Auto) Lymph # (Auto) Seg Neutrophils % Seg Neuts % (Manual) Lymphocytes % (Manual) Monocytes % (Manual) Seg Neutrophils # Man Lymphocytes # (Manual) Monocytes # (Manual) PT INR D-Dimer 5571.21 H POC ABG pCO2 ABG Hemoglobin ABG Chloride ABG Glucose VBG pH Carboxyhemoglobin Sodium Chloride Carbon Dioxide BUN Creatinine Glucose Calcium Ferritin 819.1 H Lactate Dehydrogenase 589 H C-Reactive Protein 9.80 H Total Protein Albumin Arterial Blood Glucose Coronavirus (PCR) 02/13/21 02/13/21 02/13/21 06:21 06:21 07:27 WBC 4.1 L RBC 3.49 L 3.47 L RDW 17.8 H 17.9 H [place] % (Auto) Lymph # (Auto) Seg Neutrophils % Seg Neuts % (Manual) Lymphocytes % (Manual) Monocytes % (Manual) 21.0 H Seg Neutrophils # Man Lymphocytes # (Manual) 0.6 L Monocytes # (Manual) 0.9 H PT INR D-Dimer POC ABG pCO2 ABG Hemoglobin ABG Chloride ABG Glucose VBG pH Carboxyhemoglobin Sodium Chloride Carbon Dioxide BUN Creatinine 0.4 L Glucose 105 H Calcium Ferritin Lactate Dehydrogenase C-Reactive Protein Total Protein 5.9 L Albumin 2.8 L Arterial Blood Glucose Coronavirus (PCR) 02/13/21 02/13/21 02/15/21 07:27 07:27 10:30 WBC RBC RDW 18.1 H [place] % (Auto) Lymph # (Auto) Seg Neutrophils % Seg Neuts % (Manual) Lymphocytes % (Manual) Monocytes % (Manual) Seg Neutrophils # Man Lymphocytes # (Manual) Monocytes # (Manual) PT 16.2 H INR 1.24 H D-Dimer POC ABG pCO2 ABG Hemoglobin ABG Chloride ABG Glucose VBG pH Carboxyhemoglobin Sodium Chloride Carbon Dioxide BUN Creatinine 0.4 L Glucose Calcium Ferritin Lactate Dehydrogenase C-Reactive Protein Total Protein Albumin Arterial Blood Glucose Coronavirus (PCR) 02/15/21 02/16/21 02/17/21 10:35 06:45 05:43 WBC RBC 3.60 L RDW 17.7 H [place] % (Auto) Lymph # (Auto) Seg Neutrophils % Seg Neuts % (Manual) Lymphocytes % (Manual) Monocytes % (Manual) Seg Neutrophils # Man Lymphocytes # (Manual) Monocytes # (Manual) PT INR D-Dimer POC ABG pCO2 ABG Hemoglobin ABG Chloride ABG Glucose VBG pH Carboxyhemoglobin Sodium 136 L Chloride Carbon Dioxide BUN Creatinine 0.5 L 0.5 L Glucose 120 H Calcium Ferritin Lactate Dehydrogenase C-Reactive Protein Total Protein Albumin Arterial Blood Glucose Coronavirus (PCR)
[2021-02-17] MEDS: predniSONE 20 MG TAB PO SCH (11:17)
[2021-02-17] MEDS: ASCORBIC ACID 500 MG TAB PO SCH ×2 (11:17→23:01)
[2021-02-17] MEDS: APIXABAN 5 MG TAB PO SCH ×2 (11:17→23:01)
[2021-02-17] MEDS: CHOLECALCIFEROL (VIT D3) 1000 UNIT (25 mcg) TAB PO SCH (11:17)
[2021-02-17] MEDS: ZINC SULFATE 220 MG CAP PO SCH ×2 (11:19→23:02)
--- NOTE | 2021-02-17 11:37 | Progress Note ---
Assessment and Plan Assessment and plan: 35-year-old -[place] female who recently diagnosed with COVID-19 presented to the hospital with shortness of breath associated with fatigue malaise and fever. Assessment and plan: -- Acute hypoxemic respiratory failure Due to COVID-19 pneumonia Continue high flow O2 and wean off as tolerated Schedule nebulizer breathing treatment and empiric steroid Pulmonology on board --COVID-19 pneumonia with sepsis -CXR shows patchy parenchymal disease which represent atypical pneumonia -S/p dexamethasone, azithromycin and cefepime in the ED -Placed on dexamethasone for total 10 days and remdesivir total 5 days -Infectious disease consulted, appreciate recommendations -Droplet/contact isolation -Continue SPO2 monitoring -Supplemental oxygen as needed -Pulmonary hygiene -Prone to sleep -Vitamin C, vitamin D, zinc -Anticoagulation per protocol -Lasix IV as needed to prevent pulmonary edema --elevated d-dimer initiate Px dose of eliquis, follow clinically --Acute kidney injury (MAUREEN) with vasomotor nephropathy Creatinine was 1.4 on admission now resolved with IV fluid Continue to follow renal function -- DVT prophylaxis SCD to bilateral lower extremities while in bed, prophylactic anticoagulation per protocol Daily clinical course: 02/08/21: Patient tested positive for COVID-19, will initiate remdesivir for 5 days and dexamethasone for 10 days, ID consulted, pulmonology consulted. Continue supportive care, follow COVID-19 protocol and inflammatory markers to assess disease progression/improvement 02/09/21: Continue dexamethasone and remdesivir, patient remains on high flow O2, wean off O2 as tolerated, follow inflammatory markers. 02/10/21; patient on 25 L 50% FiO2 today, continue dexamethasone and remdesivir. Wean off O2 as tolerated, follow inflammatory markers. Pulmonary and ID following. 02/11/21: Patient on 30 L 90% FiO2 today. Continue to follow clinically. Plan for 1 dose of Lasix today. Continue dexamethasone and remdesivir. 02/12/21: plan for no lasix today. ordered for Prone as tolerated. Continue IV steroids. completed remdesivir today. Follow inflammatory markers, wean off O2 as tolerated. elevated d-dimer: initiate eliquis 5mg bid 02/13/21 Patient with acute respiratory failure due to Covid-19. She is on Oxygen by high flow [place] , now at 30 l/min 02/14/21 Patient with acute respiratory failure due to Covid-19 pneumonia. Still on high flow Oxygen at 30 l/min. I discussed with Resp Therapist to evaluate for weaning. 02/15/21 Patient with acute respiratory failure due to Covid-19 pneumonia. Still on high flow Oxygen at 30 l/min. She complains of chest pain today. Will get EKG, Chest X ray. Patient on Eliquis. 02/16/21 Patient with acute respiratory failure due to Covid-19 pneumonia. Still on high flow Oxygen at 30 l/min. She complained of chest pain yesterday. Troponins were negative. Chest pain now resolved ., was likely due to Covid- pneumonia Patient on Eliquis. Continue current management. 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 Now on high flow Oxygen at 20 l/min. She was on 30 l/min yesterday. She complained of chest pain on 02/15, Troponins were negative. Chest pain now resolved ., was likely due to Covid-pneumonia. Patient on Eliquis. Continue current management. 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 no clubbing, no cyanosis Neuro: Awake,alert, oriented x 3, moves all ext - Constitutional Vitals: Temp Pulse Resp BP Pulse Ox 97.4 F L 66 16 111/83 96 02/17/21 04:58 02/17/21 04:58 02/17/21 04:58 02/17/21 04:58 02/17/21 04:58 HEART Score - HEART Score Troponin: Troponin T < 0.010 ng/mL (0.00-0.029) 02/16/21 07:58 Results - Labs CBC & Chem 7: 02/17/21 05:43 02/16/21 06:45 Labs: Laboratory Last Values WBC 7.2 K/mm3 (4.5-11.0) 02/17/21 05:43 RBC 3.60 M/mm3 (3.65-5.03) L 02/17/21 05:43 Hgb 11.3 gm/dl (10.1-14.3) 02/17/21 05:43 Hct 33.7 % (30.3-42.9) 02/17/21 05:43 MCV 94 fl (79-97) 02/17/21 05:43 MCH 32 pg (28-32) 02/17/21 05:43 MCHC 34 % (30-34) 02/17/21 05:43 RDW 17.7 % (13.2-15.2) H 02/17/21 05:43 Plt Count 400 K/mm3 (140-440) 02/17/21 05:43 Lymph % (Auto) 14.1 % (13.4-35.0) 02/07/21 14:07 [place] % (Auto) Jewel Stringer 02/13/21 06:21 Eos % (Auto) 0.1 % (0.0-4.3) 02/07/21 14:07 Baso % (Auto) 0.1 % (0.0-1.8) 02/07/21 14:07 Lymph # (Auto) 0.7 K/mm3 (1.2-5.4) L 02/07/21 14:07 [place] # (Auto) 0.7 K/mm3 (0.0-0.8) 02/07/21 14:07 Eos # (Auto) 0.0 K/mm3 (0.0-0.4) 02/07/21 14:07 Baso # (Auto) 0.0 K/mm3 (0.0-0.1) 02/07/21 14:07 Add Manual Diff Complete 02/13/21 06:21 Total Counted 100 02/13/21 06:21 Seg Neutrophils % 72.3 % (40.0-70.0) H 02/07/21 14:07 Seg Neuts % (Manual) 61.0 % (40.0-70.0) 02/13/21 06:21 Band Neutrophils % 1.0 % 02/12/21 05:28 Lymphocytes % (Manual) 15.0 % (13.4-35.0) 02/13/21 06:21 Monocytes % (Manual) 21.0 % (0.0-7.3) H 02/13/21 06:21 Eosinophils % (Manual) 2.0 % (0.0-4.3) 02/13/21 06:21 Basophils % (Manual) 1.0 % (0.0-1.8) 02/13/21 06:21 Nucleated RBC % Not Reportable 02/13/21 06:21 Seg Neutrophils # 3.6 K/mm3 (1.8-7.7) 02/07/21 14:07 Seg Neutrophils # Man 2.5 K/mm3 (1.8-7.7) 02/13/21 06:21 Band Neutrophils # 0.0 K/mm3 02/13/21 06:21 Lymphocytes # (Manual) 0.6 K/mm3 (1.2-5.4) L 02/13/21 06:21 Abs React Lymphs (Man) 0.0 K/mm3 02/13/21 06:21 Monocytes # (Manual) 0.9 K/mm3 (0.0-0.8) H 02/13/21 06:21 Eosinophils # (Manual) 0.1 K/mm3 (0.0-0.4) 02/13/21 06:21 Basophils # (Manual) 0.0 K/mm3 (0.0-0.1) 02/13/21 06:21 Metamyelocytes # 0.0 K/mm3 02/13/21 06:21 Myelocytes # 0.0 K/mm3 02/13/21 06:21 Promyelocytes # 0.0 K/mm3 02/13/21 06:21 Blast Cells # 0.0 K/mm3 02/13/21 06:21 WBC Morphology Not Reportable 02/13/21 06:21 Hypersegmented Neuts Not Reportable 02/13/21 06:21 Hyposegmented Neuts Not Reportable 02/13/21 06:21 Hypogranular Neuts Not Reportable 02/13/21 06:21 Smudge Cells Not Reportable 02/13/21 06:21 Toxic Granulation Not Reportable 02/13/21 06:21 Toxic Vacuolation Not Reportable 02/13/21 06:21 Dohle Bodies Not Reportable 02/13/21 06:21 Pelger-Huet Anomaly Not Reportable 02/13/21 06:21 Gee Rods Not Reportable 02/13/21 06:21 Platelet Estimate Not Reportable 02/13/21 06:21 Clumped Platelets Not Reportable 02/13/21 06:21 Plt Clumps, EDTA Not Reportable 02/13/21 06:21 Large Platelets Not Reportable 02/13/21 06:21 Giant Platelets Not Reportable 02/13/21 06:21 Platelet Satelliting Not Reportable 02/13/21 06:21 Plt Morphology Comment Not Reportable 02/13/21 06:21 RBC Morphology Not Reportable 02/13/21 06:21 Dimorphic RBCs Not Reportable 02/13/21 06:21 Polychromasia Not Reportable 02/13/21 06:21 Hypochromasia Not Reportable 02/13/21 06:21 Poikilocytosis Not Reportable 02/13/21 06:21 Anisocytosis Few 02/13/21 06:21 Microcytosis Rare 02/13/21 06:21 Macrocytosis Not Reportable 02/13/21 06:21 Spherocytes Not Reportable 02/13/21 06:21 Pappenheimer Bodies Not Reportable 02/13/21 06:21 Sickle Cells Not Reportable 02/13/21 06:21 Target Cells Not Reportable 02/13/21 06:21 Tear Drop Cells Not Reportable 02/13/21 06:21 Ovalocytes Not Reportable 02/13/21 06:21 Helmet Cells Not Reportable 02/13/21 06:21 [place] Bodies Not Reportable 02/13/21 06:21 [place] Rings Not Reportable 02/13/21 06:21 Demi Cells Not Reportable 02/13/21 06:21 Bite Cells Not Reportable 02/13/21 06:21 Crenated Cell Not Reportable 02/13/21 06:21 Elliptocytes Not Reportable 02/13/21 06:21 Acanthocytes (Spur) Not Reportable 02/13/21 06:21 Rouleaux Not Reportable 02/13/21 06:21 Hemoglobin C Crystals Not Reportable 02/13/21 06:21 Schistocytes Not Reportable 02/13/21 06:21 Malaria parasites Not Reportable 02/13/21 06:21 [place] Bodies Not Reportable 02/13/21 06:21 Hem Pathologist Commnt No 02/13/21 06:21 PT 16.2 Sec. (12.2-14.9) H 02/13/21 07:27 INR 1.24 (0.87-1.13) H 02/13/21 07:27 APTT 31.6 Sec. (24.2-36.6) 02/13/21 07:27 D-Dimer 5571.21 ng/mlDDU (0-234) H 02/12/21 15:08 ABG pH 7.437 (7.320-7.450) 02/07/21 14:47 POC ABG pCO2 30.7 mmHg (32.0-48.0) L 02/07/21 14:47 POC ABG pO2 92.6 mmHg (83-108) 02/07/21 14:47 POC ABG HCO3 20.2 02/07/21 14:47 ABG O2 Saturation 96.6 (0-100) 02/07/21 14:47 POC ABG Base Excess -3.3 02/07/21 14:47 ABG Hemoglobin 9.5 (12.0-17.5) L 02/07/21 14:47 ABG Oxyhemoglobin 96.0 (94-98) 02/07/21 14:47 ABG Methemoglobin 0.3 (0.0-1.5) 02/07/21 14:47 ABG Sodium 139.4 mmol/L (136.0-145.0) 02/07/21 14:47 ABG Potassium 3.7 mmol/L (3.40-4.50) 02/07/21 14:47 ABG Chloride 108.0 mmol/L (98-107) H 02/07/21 14:47 ABG Glucose 115 mg/dL (65-95) H 02/07/21 14:47 VBG pH 7.465 (7.320-7.420) H 02/07/21 14:07 Carboxyhemoglobin 0.3 (0.5-1.5) L 02/07/21 14:47 FiO2 % 32.0 02/07/21 14:47 Sodium 136 mmol/L (137-145) L 02/15/21 10:35 Potassium 3.8 mmol/L (3.6-5.0) 02/15/21 10:35 Chloride 98.0 mmol/L (98-107) 02/15/21 10:35 Carbon Dioxide 27 mmol/L (22-30) 02/15/21 10:35 Anion Gap 15 mmol/L 02/15/21 10:35 BUN 16 mg/dL (7-17) 02/15/21 10:35 Creatinine 0.5 mg/dL (0.6-1.2) L 02/16/21 06:45 Estimated GFR > 60 ml/min 02/16/21 06:45 BUN/Creatinine Ratio 32 % 02/15/21 10:35 Glucose 120 mg/dL (65-100) H 02/15/21 10:35 Lactic Acid 0.70 mmol/L (0.7-2.0) 02/07/21 18:30 Calcium 9.0 mg/dL (8.4-10.2) 02/15/21 10:35 Ferritin 819.1 ng/mL (10.0-200.0) H 02/12/21 15:08 Total Bilirubin 0.30 mg/dL (0.1-1.2) 02/13/21 06:21 AST 22 units/L (5-40) 02/13/21 06:21 ALT 16 units/L (7-56) 02/13/21 06:21 Alkaline Phosphatase 60 units/L (35-129) 02/13/21 06:21 Lactate Dehydrogenase 589 units/L (91-180) H 02/12/21 15:08 Troponin T < 0.010 ng/mL (0.00-0.029) 02/16/21 07:58 C-Reactive Protein 9.80 mg/dL (0.00-1.30) H 02/12/21 15:08 Total Protein 5.9 g/dL (6.3-8.2) L 02/13/21 06:21 Albumin 2.8 g/dL (3.9-5) L 02/13/21 06:21 Albumin/Globulin Ratio 0.9 % 02/13/21 06:21 Procalcitonin 0.24 ng/mL (<0.15) 02/12/21 15:08 HCG, Qual Negative (Negative) 02/07/21 14:07 Arterial Blood Glucose 115 mg/dL (65-95) H 02/07/21 14:47 Urine Color [place] (Yellow) 02/08/21 Unknown Urine Turbidity Clear (Clear) 02/08/21 Unknown Urine pH 6.0 (5.0-7.0) 02/08/21 Unknown Ur Specific [place] 1.026 (1.003-1.030) 02/08/21 Unknown Urine Protein 100 mg/dl mg/dL (Negative) 02/08/21 Unknown Urine Glucose (UA) Neg mg/dL (Negative) 02/08/21 Unknown Urine Ketones Neg mg/dL (Negative) 02/08/21 Unknown Urine Blood Lg (Negative) 02/08/21 Unknown Urine Nitrite Neg (Negative) 02/08/21 Unknown Urine Bilirubin Neg (Negative) 02/08/21 Unknown Urine Urobilinogen < 2.0 mg/dL (<2.0) 02/08/21 Unknown Ur Leukocyte Esterase Neg (Negative) 02/08/21 Unknown Urine WBC (Auto) 6.0 /HPF (0.0-6.0) 02/08/21 Unknown Urine RBC (Auto) 3.0 /HPF (0.0-6.0) 02/08/21 Unknown U Epithel Cells (Auto) 3.0 /HPF (0-13.0) 02/08/21 Unknown Urine Bacteria (Auto) 1+ /HPF (Negative) 02/08/21 Unknown Coronavirus (PCR) Positive (Negative) A 02/07/21 09:30 Farias/IV: Voiding Method Toilet Active Medications - Current Medications Current Medications: Generic Name Dose Route Start Last Admin Trade Name Freq PRN Reason Stop Dose Admin Acetaminophen 650 mg 02/07/21 16:30 Acetaminophen 325 Mg Tab PO Q4H PRN Pain MILD(1-3)/Fever >100.5/TORRES Albuterol 2.5 mg 02/07/21 17:00 Albuterol 2.5 Mg/3 Ml Nebu IH Q4HRT PRN Shortness Of Breath Apixaban 5 mg 02/13/21 10:00 02/17/21 11:17 Apixaban 5 Mg Tab PO 5 mg Q12HR FOSTER Administration Protocol Ascorbic Acid 500 mg 02/07/21 22:00 02/17/21 11:17 Ascorbic Acid 500 Mg Tab PO 500 mg BID FOSTER Administration Cholecalciferol 1,000 unit 02/07/21 17:00 02/17/21 11:17 Cholecalciferol (Vit D3) 1000 Unit (25 Mcg) Tab PO 1,000 unit QDAY FOSTER Administration Guaifenesin 200 mg 02/12/21 11:42 02/15/21 09:37 Guaifenesin 100 Mg/5 Ml Oral Liqd PO 200 mg Q4H PRN Administration Cough Hydromorphone HCl 0.5 mg 02/07/21 16:30 Hydromorphone 1 Mg/1 Ml Inj IV Q12H PRN Pain , Severe (7-10) Ondansetron HCl 4 mg 02/07/21 16:30 Ondansetron 4 Mg/2 Ml Inj IV Q8H PRN Nausea And Vomiting Oxycodone/Acetaminophen 1 tab 02/07/21 16:30 02/10/21 10:35 Oxycodone /Acetaminophen 5-325mg Tab PO 1 tab Q12H PRN Administration Pain, Moderate (4-6) Prednisone 60 mg 02/17/21 10:00 02/17/21 11:17 Prednisone 20 Mg Tab PO 60 mg QDAY FOSTER Administration Sodium Chloride 10 ml 02/07/21 22:00 02/17/21 11:18 Sodium Chloride 0.9% 10 Ml Flush Syringe IV 10 ml BID FOSTER Administration Sodium Chloride 10 ml 02/07/21 16:00 Sodium Chloride 0.9% 10 Ml Flush Syringe IV PRN PRN LINE FLUSH Zinc Sulfate 220 mg 02/07/21 22:00 02/17/21 11:19 Zinc Sulfate 220 Mg Cap PO Not Given BID FOSTER Nutrition/Malnutrition Assess - Dietary Evaluation Nutrition/Malnutrition Findings: Nutrition Notes Start: 02/13/21 14:38 Freq: Status: Active Protocol: Document 02/13/21 14:38 (Rec: 02/13/21 14:42 [id number]) Nutrition Notes Need for Assessment generated from: LOS Initial or Follow up Assessment Current Diagnosis Acute Kidney Injury, Respiratory Failure Other Pertinent Diagnosis pneu, COVID-19 Current Diet regular Labs/Tests reviewed Pertinent Medications Decadron Height 5 ft 6 in Weight 80 kg [place] Body Weight (kg) 59.09 BMI 28.4 Weight Status Overweight Subjective/Other Information Screen for LOS. Per chart pt eating 0-25% of meals. RN confirms poor intakes. Pt did not answer phone x2. Burn Absent Trauma Absent Current % PO Negligible Minimum of two criteria No physical signs of malnutrition #1 Nutrition Diagnosis Inadequate oral intake Etiology acute illness As Evidenced by Signs and Symptoms pt eating <25% of meals Is patient on ventilator? No Is Patient Ambulatory and/or Out of Bed Yes REE-([facility]-ambulatory/OOB) [ [id number] [id number]] Calculation Used for Recommendations [facility] Additional Notes Protein: (0.8-1g/kg) 64-80g Fluid: 1 ml/kcal Nutrition Intervention Change Diet Order: continue Add Supplement/Snack (indicate name/kcal Ensure Enlive BID /protein ) Provides kCal: 700 Provides Protein (gm) 40 Goal #1 Meet at least 75% of energy and protein needs via PO and ONS Anticipated Discharge Needs: regular Follow-Up By: 02/17/21 Additional Comments FU for assessment, intakes and ONS tolerance
[2021-02-17] MEDS ORDERED: diphenhydrAMINE 50 MG/ML VIAL IV PRN (11:53)
[2021-02-18 06:52] LABS: Hematocrit 35.5 % (30.3-42.9); Hemoglobin 11.4 gm/dl (10.1-14.3); Mean Corpuscular HGB Conc 32 % (30-34); Mean Corpuscular Volume 93 fl (79-97); Platelet Count 456 K/mm3 (140-440); Red Blood Count 3.83 M/mm3 (3.65-5.03)
[2021-02-18 07:19] LABS: BUN/Creatinine Ratio 30; Blood Urea Nitrogen 15 mg/dL (7-17); Calcium 9.5 mg/dL (8.4-10.2); Hemolysis Index 2
[2021-02-18] MEDS: predniSONE 20 MG TAB PO SCH (09:23)
[2021-02-18] MEDS: ASCORBIC ACID 500 MG TAB PO SCH ×2 (09:23→22:27)
[2021-02-18] MEDS: CHOLECALCIFEROL (VIT D3) 1000 UNIT (25 mcg) TAB PO SCH (09:23)
[2021-02-18] MEDS: APIXABAN 5 MG TAB PO SCH ×2 (09:23→22:26)
[2021-02-18] MEDS: ZINC SULFATE 220 MG CAP PO SCH ×2 (10:00→22:26)
--- NOTE | 2021-02-18 11:47 | Progress Note ---
Assessment and Plan 40 y/o female with acute respiratory failure secondary to cOVID 19 and COVID pneumonia. 02/18/21: Continue to wean FiO2. Should be stable for walk test soon to assess how much she may need at home. Suggest the following taper of steroids: Prednisone 60mg daily for 4 days, 40 daily for 4 days, 20 daily for 4 days then 10 daily for 4 days then stop. Hopeful discharge in the next 48-72 hours. 02/17/21: Continue to wean. Continue steroids. Hold lasix. 02/16/21: Will place on Prednisone now that Dex is done as she is still requiri ng high flow nasal cannula. Prone if possible. Continue anticoagulation. Hold on lasix therapy again today. 02/15/21: Hold lasix again today unless Blood pressure really improves. Proning is needed. Continue IV steroids. Continue anticoagulation. 02/14/21: Hold on lasix today. Continue IV steroids. Prone if able. Likely will give lasix tomorrow. 02/13/21: Chemistry stable so will give Lasix today. Continue IV steroids. Wean FiO2 for sats >88%. Prone if possible. : Prone as tolerated. Continue IV steroids. Hold on Lasix today, check chemistry tomorrow. Wean FiO2 back down. Guarded prognosis. 1. Ordered the Prone Protocol. Please document if patient prones, refuses to prone or the inability to prone 2. Continue IV steroids 3. Gave lasix today 4. Wean FiO2 and flow as tolerated for sats >88% Subjective Date of service: 02/18/21 Interval history: Down to 5 liters based on charting. Good sats. Objective Vital Signs - 12hr 02/18/21 02/18/21 04:46 11:32 Temperature 98.0 F Pulse Rate 56 L Respiratory 18 Rate Blood Pressure 100/56 O2 Sat by Pulse 99 98 Oximetry Constitutional: other (mild distress) Eyes: non-icteric ENT: oropharynx moist Neck: supple Effort: normal Ascultation: Bilateral: diminished breath sounds Cardiovascular: regular rate and rhythm Gastrointestinal: normoactive bowel sounds, soft, non-tender, non-distended Integumentary: normal Extremities: no cyanosis CBC and BMP: 02/18/21 06:24 02/18/21 06:24 ABG, PT/INR, D-dimer: ABG ABG pH 7.437 (7.320-7.450) 02/07/21 14:47 POC ABG pCO2 30.7 mmHg (32.0-48.0) L 02/07/21 14:47 POC ABG pO2 92.6 mmHg (83-108) 02/07/21 14:47 POC ABG HCO3 20.2 02/07/21 14:47 ABG O2 Saturation 96.6 (0-100) 02/07/21 14:47 PT/INR, D-dimer PT 16.2 Sec. (12.2-14.9) H 02/13/21 07:27 INR 1.24 (0.87-1.13) H 02/13/21 07:27 D-Dimer 5571.21 ng/mlDDU (0-234) H 02/12/21 15:08 Abnormal lab findings: Abnormal Labs 02/07/21 02/07/21 02/07/21 09:30 14:07 14:07 WBC RBC RDW 18.3 H Plt Count [place] % (Auto) 13.4 H Lymph # (Auto) 0.7 L Seg Neutrophils % 72.3 H Seg Neuts % (Manual) Lymphocytes % (Manual) Monocytes % (Manual) Seg Neutrophils # Man Lymphocytes # (Manual) Monocytes # (Manual) PT INR D-Dimer POC ABG pCO2 ABG Hemoglobin ABG Chloride ABG Glucose VBG pH Carboxyhemoglobin Sodium Chloride Carbon Dioxide BUN 29 H Creatinine 1.4 H Glucose 119 H Calcium Ferritin Lactate Dehydrogenase C-Reactive Protein Total Protein Albumin 3.7 L Arterial Blood Glucose Coronavirus (PCR) Positive A 02/07/21 02/07/21 02/08/21 14:07 14:47 04:37 WBC 1.9 L* RBC 3.59 L RDW 18.3 H Plt Count [place] % (Auto) Lymph # (Auto) Seg Neutrophils % Seg Neuts % (Manual) Lymphocytes % (Manual) Monocytes % (Manual) Seg Neutrophils # Man 1.3 L Lymphocytes # (Manual) 0.5 L Monocytes # (Manual) PT INR D-Dimer POC ABG pCO2 30.7 L ABG Hemoglobin 9.5 L ABG Chloride 108.0 H ABG Glucose 115 H VBG pH 7.465 H Carboxyhemoglobin 0.3 L Sodium Chloride Carbon Dioxide BUN Creatinine Glucose Calcium Ferritin Lactate Dehydrogenase C-Reactive Protein Total Protein Albumin Arterial Blood Glucose 115 H Coronavirus (PCR) 02/08/21 02/08/21 02/09/21 04:37 18:49 08:25 WBC RBC RDW Plt Count [place] % (Auto) Lymph # (Auto) Seg Neutrophils % Seg Neuts % (Manual) Lymphocytes % (Manual) Monocytes % (Manual) Seg Neutrophils # Man Lymphocytes # (Manual) Monocytes # (Manual) PT INR D-Dimer POC ABG pCO2 ABG Hemoglobin ABG Chloride ABG Glucose VBG pH Carboxyhemoglobin Sodium 135 L Chloride Carbon Dioxide 20 L 21 L BUN 25 H 25 H 23 H Creatinine Glucose 216 H 155 H 133 H Calcium 8.3 L Ferritin Lactate Dehydrogenase C-Reactive Protein Total Protein Albumin 3.3 L 3.1 L 3.1 L Arterial Blood Glucose Coronavirus (PCR) 02/09/21 02/09/21 02/09/21 14:28 14:28 14:28 WBC RBC RDW Plt Count [place] % (Auto) Lymph # (Auto) Seg Neutrophils % Seg Neuts % (Manual) Lymphocytes % (Manual) Monocytes % (Manual) Seg Neutrophils # Man Lymphocytes # (Manual) Monocytes # (Manual) PT INR D-Dimer 716.60 H POC ABG pCO2 ABG Hemoglobin ABG Chloride ABG Glucose VBG pH Carboxyhemoglobin Sodium Chloride Carbon Dioxide BUN Creatinine Glucose Calcium Ferritin 766.8 H Lactate Dehydrogenase 392 H C-Reactive Protein 3.40 H Total Protein Albumin Arterial Blood Glucose Coronavirus (PCR) 02/10/21 02/11/21 02/12/21 07:51 07:56 05:28 WBC RBC 3.64 L RDW 18.0 H Plt Count [place] % (Auto) Lymph # (Auto) Seg Neutrophils % Seg Neuts % (Manual) 79.0 H Lymphocytes % (Manual) 9.0 L Monocytes % (Manual) 10.0 H Seg Neutrophils # Man Lymphocytes # (Manual) 0.5 L Monocytes # (Manual) PT INR D-Dimer POC ABG pCO2 ABG Hemoglobin ABG Chloride ABG Glucose VBG pH Carboxyhemoglobin Sodium Chloride 109.6 H 109.1 H Carbon Dioxide BUN 21 H Creatinine 0.5 L Glucose 103 H 104 H Calcium Ferritin Lactate Dehydrogenase C-Reactive Protein Total Protein 5.7 L 5.5 L Albumin 3.2 L 3.0 L Arterial Blood Glucose Coronavirus (PCR) 02/12/21 02/12/2102/12/21 15:08 15:08 15:08 WBC RBC RDW Plt Count [place] % (Auto) Lymph # (Auto) Seg Neutrophils % Seg Neuts % (Manual) Lymphocytes % (Manual) Monocytes % (Manual) Seg Neutrophils # Man Lymphocytes # (Manual) Monocytes # (Manual) PT INR D-Dimer 5571.21 H POC ABG pCO2 ABG Hemoglobin ABG Chloride ABG Glucose VBG pH Carboxyhemoglobin Sodium Chloride Carbon Dioxide BUN Creatinine Glucose Calcium Ferritin 819.1 H Lactate Dehydrogenase 589 H C-Reactive Protein 9.80 H Total Protein Albumin Arterial Blood Glucose Coronavirus (PCR) 02/13/21 02/13/21 02/13/21 06:21 06:21 07:27 WBC 4.1 L RBC 3.49 L 3.47 L RDW 17.8 H 17.9 H Plt Count [place] % (Auto) Lymph # (Auto) Seg Neutrophils % Seg Neuts % (Manual) Lymphocytes % (Manual) Monocytes % (Manual) 21.0 H Seg Neutrophils # Man Lymphocytes # (Manual) 0.6 L Monocytes # (Manual) 0.9 H PT INR D-Dimer POC ABG pCO2 ABG Hemoglobin ABG Chloride ABG Glucose VBG pH Carboxyhemoglobin Sodium Chloride Carbon Dioxide BUN Creatinine 0.4 L Glucose 105 H Calcium Ferritin Lactate Dehydrogenase C-Reactive Protein Total Protein 5.9 L Albumin 2.8 L Arterial Blood Glucose Coronavirus (PCR) 02/13/21 02/13/21 02/15/21 07:27 07:27 10:30 WBC RBC RDW 18.1 H Plt Count [place] % (Auto) Lymph # (Auto) Seg Neutrophils % Seg Neuts % (Manual) Lymphocytes % (Manual) Monocytes % (Manual) Seg Neutrophils # Man Lymphocytes # (Manual) Monocytes # (Manual) PT 16.2 H INR 1.24 H D-Dimer POC ABG pCO2 ABG Hemoglobin ABG Chloride ABG Glucose VBG pH Carboxyhemoglobin Sodium Chloride Carbon Dioxide BUN Creatinine 0.4 L Glucose Calcium Ferritin Lactate Dehydrogenase C-Reactive Protein Total Protein Albumin Arterial Blood Glucose Coronavirus (PCR) 02/15/21 02/16/21 02/17/21 10:35 06:45 05:43 WBC RBC 3.60 L RDW 17.7 H Plt Count [place] % (Auto) Lymph # (Auto) Seg Neutrophils % Seg Neuts % (Manual) Lymphocytes % (Manual) Monocytes % (Manual) Seg Neutrophils # Man Lymphocytes # (Manual) Monocytes # (Manual) PT INR D-Dimer POC ABG pCO2 ABG Hemoglobin ABG Chloride ABG Glucose VBG pH Carboxyhemoglobin Sodium 136 L Chloride Carbon Dioxide BUN Creatinine 0.5 L 0.5 L Glucose 120 H Calcium Ferritin Lactate Dehydrogenase C-Reactive Protein Total Protein Albumin Arterial Blood Glucose Coronavirus (PCR) 02/18/21 02/18/21 06:24 06:24 WBC RBC RDW 18.0 H Plt Count 456 H [place] % (Auto) Lymph # (Auto) Seg Neutrophils % Seg Neuts % (Manual) Lymphocytes % (Manual) Monocytes % (Manual) Seg Neutrophils # Man Lymphocytes # (Manual) Monocytes # (Manual) PT INR D-Dimer POC ABG pCO2 ABG Hemoglobin ABG Chloride ABG Glucose VBG pH Carboxyhemoglobin Sodium Chloride Carbon Dioxide BUN Creatinine 0.5 L Glucose Calcium Ferritin Lactate Dehydrogenase C-Reactive Protein Total Protein Albumin Arterial Blood Glucose Coronavirus (PCR)
--- NOTE | 2021-02-18 14:56 | Progress Note ---
Assessment and Plan 35-year-old -[place] female who recently diagnosed with COVID-19 presented to the hospital with shortness of breath associated with fatigue malaise and fever. Assessment and plan: -- Acute hypoxemic respiratory failure Due to COVID-19 pneumonia Continue high flow O2 and wean off as tolerated Schedule nebulizer breathing treatment and empiric steroid Pulmonology on board --COVID-19 pneumonia with sepsis -CXR shows patchy parenchymal disease which represent atypical pneumonia -S/p dexamethasone, azithromycin and cefepime in the ED -Placed on dexamethasone for total 10 days and remdesivir total 5 days -Infectious disease consulted, appreciate recommendations -Droplet/contact isolation -Continue SPO2 monitoring -Supplemental oxygen as needed -Pulmonary hygiene -Prone to sleep -Vitamin C, vitamin D, zinc -Anticoagulation per protocol -Lasix IV as needed to prevent pulmonary edema --elevated d-dimer initiate Px dose of eliquis, follow clinically --Acute kidney injury (MAUREEN) with vasomotor nephropathy Creatinine was 1.4 on admission now resolved with IV fluid Continue to follow renal function -- DVT prophylaxis SCD to bilateral lower extremities while in bed, prophylactic anticoagulation p er protocol Daily clinical course: 02/08/21: Patient tested positive for COVID-19, will initiate remdesivir for 5 days and dexamethasone for 10 days, ID consulted, pulmonology consulted. Continue supportive care, follow COVID-19 protocol and inflammatory markers to assess disease progression/improvement 02/09/21: Continue dexamethasone and remdesivir, patient remains on high flow O2, wean off O2 as tolerated, follow inflammatory markers. 02/10/21; patient on 25 L 50% FiO2 today, continue dexamethasone and remdesivir. Wean off O2 as tolerated, follow inflammatory markers. Pulmonary and ID following. 02/11/21: Patient on 30 L 90% FiO2 today. Continue to follow clinically. Plan for 1 dose of Lasix today. Continue dexamethasone and remdesivir. 02/12/21: plan for no lasix today. ordered for Prone as tolerated. Continue IV steroids. completed remdesivir today. Follow inflammatory markers, wean off O2 as tolerated. elevated d-dimer: initiate eliquis 5mg bid 02/13/21 Patient with acute respiratory failure due to Covid-19. She is on Oxygen by high flow [place] , now at 30 l/min 02/14/21 Patient with acute respiratory failure due to Covid-19 pneumonia. Still on high flow Oxygen at 30 l/min. I discussed with Resp Therapist to evaluate for weaning. 02/15/21 Patient with acute respiratory failure due to Covid-19 pneumonia. Still on high flow Oxygen at 30 l/min. She complains of chest pain today. Will get EKG, Chest X ray. Patient on Eliquis. 02/16/21 Patient with acute respiratory failure due to Covid-19 pneumonia. Still on high flow Oxygen at 30 l/min. She complained of chest pain yesterday. Troponins were negative. Chest pain now resolved ., was likely due to Covid- pneumonia Patient on Eliquis. Continue current management. 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 Now on high flow Oxygen at 20 l/min. She was on 30 l/min yesterday. She complained of chest pain on 02/15, Troponins were negative. Chest pain now resolved ., was likely due to Covid-pneumonia. Patient on Eliquis. Continue current management. 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 Wean off O2 as tolerated. If oxygen saturation remains stable with supplemental O2 less than 5 L patient could be discharged home. Assess ambulatory O2, follow clinically. Subjective Date of service: 02/18/21 Interval history: Patient seen and examined. Medical records and medication list reviewed. No acute event overnight noted by the RN. Patient remains on 5L n/c O2. Patient is tolerating diet. Discussed plan of care at bedside with patient. Objective - Exam Narrative Exam: Limited physical exam due to COVID-19 pandemic to minimize transmission of the disease and to preserve PPE. Vital reviewed and stable. GENERAL: well-developed well-nourished -[place] female lying on bed appeared to be in no discomfort. HEENT: Normocephalic. Atraumatic. NECK: Supple. CHEST/LUNGS: breathing on n/c O2 HEART/CARDIOVASCULAR: Heart rate stable on telemetry ABDOMEN: Visibly not distended SKIN: There is no rash NEURO: No focal motor deficit. Follows command. MUSCULOSKELETAL: No joint effusion EXTRIMITY: No swelling, no cyanosis or clubbing. PSYCH: Cooperative. - Constitutional Vitals: Vital Signs - 12hr 0802/18/21 02/18/21 04:46 11:32 11:40 Temperature 98.0 F 97.9 F Pulse Rate 56 L 91 H Respiratory 18 22 Rate Blood Pressure 100/56 103/71 O2 Sat by Pulse 99 98 100 Oximetry 02/18/21 11:56 Temperature Pulse Rate Respiratory Rate Blood Pressure O2 Sat by Pulse 100 Oximetry - Labs CBC & Chem 7: 02/19/21 08:36 02/19/21 08:36 Labs: Abnormal lab results 02/18/21 02/18/21 Range/Units 06:24 06:24 RDW 18.0 H (13.2-15.2) % Plt Count 456 H (140-440) K/mm3 Creatinine 0.5 L (0.6-1.2) mg/dL HEART Score - HEART Score Troponin: Troponin T < 0.010 ng/mL (0.00-0.029) 02/16/21 07:58
--- NOTE | 2021-02-18 17:41 | Electrocardiograph Report ---
[facility] Test Date: 2021-02-17 Test Time: 09:47:03 Pat Name: HOLLIE PULIDO Department: Room: A371 1 Gender: F [employer]er: ANDREW : 1980 Requested By: GEOVANNY SARKAR Order Number: [id number] Reading MD: Jailene Davis Measurements Intervals [place] Rate: 89 P: 40 VA: 142 QRS: 55 QRSD: 85 T: -54 QT: 357 QTc: 434 Interpretive Statements Sinus rhythm Nonspecific T abnormalities, inferior leads Compared to ECG 02/07/2021 14:12:46 Sinus rate has slowed Electronically Signed On 02-18-2021 17:41:24 EDT by Jailene Davis
--- NOTE | 2021-02-19 08:25 | Progress Note ---
Assessment and Plan 40 y/o female with acute respiratory failure secondary to cOVID 19 and COVID pneumonia. 02/19/21: Suggest walk test today to assess need for oxygen if any, especially with exertion. Same steroid taper as listed below. Would have no objection to discharge as early as today. Will sign off. Call if questions. 02/18/21: Continue to wean FiO2. Should be stable for walk test soon to assess how much she may need at home. Suggest the following taper of steroids: Prednisone 60mg daily for 4 days, 40 daily for 4 days, 20 daily for 4 days then 10 daily for 4 days then stop. Hopeful discharge in the next 48-72 hours. 02/17/21: Continue to wean. Continue steroids. Hold lasix. 02/16/21: Will place on Prednisone now that Dex is done as she is still requiring high flow nasal cannula. Prone if possible. Continue anticoagulation. Hold on lasix therapy again today. 02/15/21: Hold lasix again today unless Blood pressure really improves. Proning is needed. Continue IV steroids. Continue anticoagulation. 02/14/21: Hold on lasix today. Continue IV steroids. Prone if able. Likely will give lasix tomorrow. 02/13/21: Chemistry stable so will give Lasix today. Continue IV steroids. Wean FiO2 for sats >88%. Prone if possible. : Prone as tolerated. Continue IV steroids. Hold on Lasix today, check chemistry tomorrow. Wean FiO2 back down. Guarded prognosis. 1. Ordered the Prone Protocol. Please document if patient prones, refuses to prone or the inability to prone 2. Continue IV steroids 3. Gave lasix today 4. Wean FiO2 and flow as tolerated for sats >88% Subjective Date of service: 02/19/21 Interval history: Weaned down to 2 liters. Stable. Objective Vital Signs - 12hr 02/18/21 02/18/21 02/19/21 22:00 22:23 02:03 Temperature 97.8 F Pulse Rate 73 Respiratory 18 Rate Respiratory 18 Rate [Chest] Blood Pressure 112/78 O2 Sat by Pulse 99 100 100 Oximetry 02/19/21 05:10 Temperature 98.3 F Pulse Rate 55 L Respiratory 18 Rate Respiratory Rate [Chest] Blood Pressure 123/71 O2 Sat by Pulse 98 Oximetry Constitutional: other (mild distress) Eyes: non-icteric ENT: oropharynx moist Neck: supple Effort: normal Ascultation: Bilateral: diminished breath sounds Cardiovascular: regular rate and rhythm Gastrointestinal: normoactive bowel sounds, soft, non-tender, non-distended Integumentary: normal Extremities: no cyanosis CBC and BMP: 02/18/21 06:24 02/18/21 06:24 ABG, PT/INR, D-dimer: ABG ABG pH 7.437 (7.320-7.450) 02/07/21 14:47 POC ABG pCO2 30.7 mmHg (32.0-48.0) L 02/07/21 14:47 POC ABG pO2 92.6 mmHg (83-108) 02/07/21 14:47 POC ABG HCO3 20.2 02/07/21 14:47 ABG O2 Saturation 96.6 (0-100) 02/07/21 14:47 PT/INR, D-dimer PT 16.2 Sec. (12.2-14.9) H 02/13/21 07:27 INR 1.24 (0.87-1.13) H 02/13/21 07:27 D-Dimer 5571.21 ng/mlDDU (0-234) H 02/12/21 15:08 Abnormal lab findings: Abnormal Labs 02/07/21 02/07/21 02/07/21 09:30 14:07 14:07 WBC RBC RDW 18.3 H Plt Count [place] % (Auto) 13.4 H Lymph # (Auto) 0.7 L Seg Neutrophils % 72.3 H Seg Neuts % (Manual) Lymphocytes % (Manual) Monocytes % (Manual) Seg Neutrophils # Man Lymphocytes # (Manual) Monocytes # (Manual) PT INR D-Dimer POC ABG pCO2 ABG Hemoglobin ABG Chloride ABG Glucose VBG pH Carboxyhemoglobin Sodium Chloride Carbon Dioxide BUN 29 H Creatinine 1.4 H Glucose 119 H Calcium Ferritin Lactate Dehydrogenase C-Reactive Protein Total Protein Albumin 3.7 L Arterial Blood Glucose Coronavirus (PCR) Positive A 02/07/21 02/07/21 02/08/21 14:07 14:47 04:37 WBC 1.9 L* RBC 3.59 L RDW 18.3 H Plt Count [place] % (Auto) Lymph # (Auto) Seg Neutrophils % Seg Neuts % (Manual) Lymphocytes % (Manual) Monocytes % (Manual) Seg Neutrophils # Man 1.3 L Lymphocytes # (Manual) 0.5 L Monocytes # (Manual) PT INR D-Dimer POC ABG pCO2 30.7 L ABG Hemoglobin 9.5 L ABG Chloride 108.0 H ABG Glucose 115 H VBG pH 7.465 H Carboxyhemoglobin 0.3 L Sodium Chloride Carbon Dioxide BUN Creatinine Glucose Calcium Ferritin Lactate Dehydrogenase C-Reactive Protein Total Protein Albumin Arterial Blood Glucose 115 H Coronavirus (PCR) 02/08/21 02/08/21 02/09/21 04:37 18:49 08:25 WBC RBC RDW Plt Count [place] % (Auto) Lymph # (Auto) Seg Neutrophils % Seg Neuts % (Manual) Lymphocytes % (Manual) Monocytes % (Manual) Seg Neutrophils # Man Lymphocytes # (Manual) Monocytes # (Manual) PT INR D-Dimer POC ABG pCO2 ABG Hemoglobin ABG Chloride ABG Glucose VBG pH Carboxyhemoglobin Sodium 135 L Chloride Carbon Dioxide 20 L 21 L BUN 25 H 25 H 23 H Creatinine Glucose 216 H 155 H 133 H Calcium 8.3 L Ferritin Lactate Dehydrogenase C-Reactive Protein Total Protein Albumin 3.3 L 3.1 L 3.1 L Arterial Blood Glucose Coronavirus (PCR) 02/09/21 02/09/21 02/09/21 14:28 14:28 14:28 WBC RBC RDW Plt Count [place] % (Auto) Lymph # (Auto) Seg Neutrophils % Seg Neuts % (Manual) Lymphocytes % (Manual) Monocytes % (Manual) Seg Neutrophils # Man Lymphocytes # (Manual) Monocytes # (Manual) PT INR D-Dimer 716.60 H POC ABG pCO2 ABG Hemoglobin ABG Chloride ABG Glucose VBG pH Carboxyhemoglobin Sodium Chloride Carbon Dioxide BUN Creatinine Glucose Calcium Ferritin 766.8 H Lactate Dehydrogenase 392 H C-Reactive Protein 3.40 H Total Protein Albumin Arterial Blood Glucose Coronavirus (PCR) 02/10/21 02/11/21 02/12/21 07:51 07:56 05:28 WBC RBC 3.64 L RDW 18.0 H Plt Count [place] % (Auto) Lymph # (Auto) Seg Neutrophils % Seg Neuts % (Manual) 79.0 H Lymphocytes % (Manual) 9.0 L Monocytes % (Manual) 10.0 H Seg Neutrophils # Man Lymphocytes # (Manual) 0.5 L Monocytes # (Manual) PT INR D-Dimer POC ABG pCO2 ABG Hemoglobin ABG Chloride ABG Glucose VBG pH Carboxyhemoglobin Sodium Chloride 109.6 H 109.1 H Carbon Dioxide BUN 21 H Creatinine 0.5 L Glucose 103 H 104 H Calcium Ferritin Lactate Dehydrogenase C-Reactive Protein Total Protein 5.7 L 5.5 L Albumin 3.2 L 3.0 L Arterial Blood Glucose Coronavirus (PCR) 02/12/21 02/12/21 02/12/21 15:08 15:08 15:08 WBC RBC RDW Plt Count [place] % (Auto) Lymph # (Auto) Seg Neutrophils % Seg Neuts % (Manual) Lymphocytes % (Manual) Monocytes % (Manual) Seg Neutrophils # Man Lymphocytes # (Manual) Monocytes # (Manual) PT INR D-Dimer 5571.21 H POC ABG pCO2 ABG Hemoglobin ABG Chloride ABG Glucose VBG pH Carboxyhemoglobin Sodium Chloride Carbon Dioxide BUN Creatinine Glucose Calcium Ferritin 819.1 H Lactate Dehydrogenase 589 H C-Reactive Protein 9.80 H Total Protein Albumin Arterial Blood Glucose Coronavirus (PCR) 02/13/21 02/13/21 02/13/21 06:21 06:21 07:27 WBC 4.1 L RBC 3.49 L 3.47 L RDW 17.8 H 17.9 H Plt Count [place] % (Auto) Lymph # (Auto) Seg Neutrophils % Seg Neuts % (Manual) Lymphocytes % (Manual) Monocytes % (Manual) 21.0 H Seg Neutrophils # Man Lymphocytes # (Manual) 0.6 L Monocytes # (Manual) 0.9 H PT INR D-Dimer POC ABG pCO2 ABG Hemoglobin ABG Chloride ABG Glucose VBG pH Carboxyhemoglobin Sodium Chloride Carbon Dioxide BUN Creatinine 0.4 L Glucose 105 H Calcium Ferritin Lactate Dehydrogenase C-Reactive Protein Total Protein 5.9 L Albumin 2.8 L Arterial Blood Glucose Coronavirus (PCR) 02/13/21 02/13/21 02/15/21 07:27 07:27 10:30 WBC RBC RDW 18.1 H Plt Count [place] % (Auto) Lymph # (Auto) Seg Neutrophils % Seg Neuts % (Manual) Lymphocytes % (Manual) Monocytes % (Manual) Seg Neutrophils # Man Lymphocytes # (Manual) Monocytes # (Manual) PT 16.2 H INR 1.24 H D-Dimer POC ABG pCO2 ABG Hemoglobin ABG Chloride ABG Glucose VBG pH Carboxyhemoglobin Sodium Chloride Carbon Dioxide BUN Creatinine 0.4 L Glucose Calcium Ferritin Lactate Dehydrogenase C-Reactive Protein Total Protein Albumin Arterial Blood Glucose Coronavirus (PCR) 02/15/21 02/16/21 02/17/21 10:35 06:45 05:43 WBC RBC 3.60 L RDW 17.7 H Plt Count [place] % (Auto) Lymph # (Auto) Seg Neutrophils % Seg Neuts % (Manual) Lymphocytes % (Manual) Monocytes % (Manual) Seg Neutrophils # Man Lymphocytes # (Manual) Monocytes # (Manual) PT INR D-Dimer POC ABG pCO2 ABG Hemoglobin ABG Chloride ABG Glucose VBG pH Carboxyhemoglobin Sodium 136 L Chloride Carbon Dioxide BUN Creatinine 0.5 L 0.5 L Glucose 120 H Calcium Ferritin Lactate Dehydrogenase C-Reactive Protein Total Protein Albumin Arterial Blood Glucose Coronavirus (PCR) 02/18/21 02/18/21 06:24 06:24 WBC RBC RDW 18.0 H Plt Count 456 H [place] % (Auto) Lymph # (Auto) Seg Neutrophils % Seg Neuts % (Manual) Lymphocytes % (Manual) Monocytes % (Manual) Seg Neutrophils # Man Lymphocytes # (Manual) Monocytes # (Manual) PT INR D-Dimer POC ABG pCO2 ABG Hemoglobin ABG Chloride ABG Glucose VBG pH Carboxyhemoglobin Sodium Chloride Carbon Dioxide BUN Creatinine 0.5 L Glucose Calcium Ferritin Lactate Dehydrogenase C-Reactive Protein Total Protein Albumin Arterial Blood Glucose Coronavirus (PCR)
[2021-02-19 09:00] LABS: Hemoglobin 11.8 gm/dl (10.1-14.3); Mean Corpuscular HGB Conc 34 % (30-34); Mean Corpuscular Volume 93 fl (79-97); Platelet Count 405 K/mm3 (140-440); Red Blood Count 3.77 M/mm3 (3.65-5.03)
--- NOTE | 2021-02-19 10:23 | Progress Note ---
Subjective Date of service: 02/19/21 Objective - Constitutional Vitals: Vital Signs - 12hr 02/19/21 02/19/21 02:03 05:10 Temperature 98.3 F Pulse Rate 55 L Respiratory 18 Rate Blood Pressure 123/71 O2 Sat by Pulse 100 98 Oximetry - Labs CBC & Chem 7: 02/19/21 08:36 02/19/21 08:36 Labs: Abnormal lab results 02/19/21 Range/Units 08:36 RDW 18.0 H (13.2-15.2) % HEART Score - HEART Score Troponin: Troponin T < 0.010 ng/mL (0.00-0.029) 02/16/21 07:58
[2021-02-19] MEDS: predniSONE 20 MG TAB PO SCH (10:51)
[2021-02-19] MEDS: ZINC SULFATE 220 MG CAP PO SCH (10:51)
[2021-02-19] MEDS: APIXABAN 5 MG TAB PO SCH (10:51)
[2021-02-19] MEDS: CHOLECALCIFEROL (VIT D3) 1000 UNIT (25 mcg) TAB PO SCH (10:51)
[2021-02-19] MEDS: ASCORBIC ACID 500 MG TAB PO SCH (10:51)
--- NOTE | 2021-02-19 15:03 | Discharge Summary ---
Providers - Providers Date of Admission: 02/07/21 15:55 Date of discharge: 02/19/21 Attending physician: KWASI RIVERA 02/07/21 15:55 Consult to Physician [CONS] Routine Comment: Consulting Provider: BINU PENNY Physician Instructions: Reason For Exam: pui 02/07/21 15:59 Consult to Physician [CONS] Routine Comment: Consulting Provider: MARÍA MUIR Physician Instructions: Reason For Exam: pui on Hi Flow oxygen 02/12/21 07:34 Physical Therapy Evaluation and Treat [CONS] Routine Comment: Reason For Exam: weakness Hospitalization Condition: Fair Pertinent studies: CXR Hospital course: 35-year-old -[place] female who recently diagnosed with COVID-19 presented to the hospital with shortness of breath associated with fatigue malaise and fever. Daily clinical course: 02/08/21: Patient tested positive for COVID-19, will initiate remdesivir for 5 days and dexamethasone for 10 days, ID consulted, pulmonology consulted. Continue supportive care, follow COVID-19 protocol and inflammatory markers to assess disease progression/improvement 02/09/21: Continue dexamethasone and remdesivir, patient remains on high flow O2, wean off O2 as tolerated, follow inflammatory markers. 02/10/21; patient on 25 L 50% FiO2 today, continue dexamethasone and remdesivir. Wean off O2 as tolerated, follow inflammatory markers. Pulmonary and ID following. 02/11/21: Patient on 30 L 90% FiO2 today. Continue to follow clinically. Plan for 1 dose of Lasix today. Continue dexamethasone and remdesivir. 02/12/21: plan for no lasix today. ordered for Prone as tolerated. Continue IV steroids. completed remdesivir today. Follow inflammatory markers, wean off O2 as tolerated. elevated d-dimer: initiate eliquis 5mg bid 02/13/21 Patient with acute respiratory failure due to Covid-19. She is on Oxygen by high flow [place] , now at 30 l/min 02/14/21 Patient with acute respiratory failure due to Covid-19 pneumonia. Still on high flow Oxygen at 30 l/min. I discussed with Resp Therapist to evaluate for weaning. 02/15/21 Patient with acute respiratory failure due to Covid-19 pneumonia. Still on high flow Oxygen at 30 l/min. She complains of chest pain today. Will get EKG, Chest X ray. Patient on Eliquis. 02/16/21 Patient with acute respiratory failure due to Covid-19 pneumonia. Still on high flow Oxygen at 30 l/min. She complained of chest pain yesterday. Troponins were negative. Chest pain now resolved ., was likely due to Covid- pneumonia Patient on Eliquis. Continue current management. 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 Now on high flow Oxygen at 20 l/min. She was on 30 l/min yesterday. She complained of chest pain on 02/15, Troponins were negative. Chest pain now resolved ., was likely due to Covid-pneumonia. Patient on Eliquis. Continue current management. customer project manager looking at LTAC 02/18/21: Patient currently on 5 L nasal cannula, continue to follow inflammatory markers. Wean off O2 as tolerated. If oxygen saturation remains stable with supplemental O2 less than 5 L patient could be discharged home. Assess ambulatory O2, follow clinically. 02/19/21: Patient on room air today. Assessed for home O2 and she did not qualify. Patient will be discharged home with self-care. Patient was recomme nded to follow COVID-19 guidelines for quarantine and Covid vaccination. Disposition: HOME HEALTH CARE SERVICE Final Discharge Diagnosis (Prints w/discharge instructions): -- Acute hypoxemic respiratory failure. --COVID-19 pneumonia with sepsis. --elevated d- dimercally. --Acute kidney injury (MAUREEN) with vasomotor nephropathy Time spent for discharge: 34 minutes Core Measure Documentation - Palliative Care Palliative Care/ Comfort Measures: Not Applicable - Core Measures Any of the following diagnoses?: none Exam - Physical Exam Narrative exam: Limited physical exam due to COVID-19 pandemic to minimize transmission of the disease and to preserve PPE. Vital reviewed and stable. GENERAL: well-developed well-nourished -[place] female lying on bed appeared to be in no discomfort. HEENT: Normocephalic. Atraumatic. NECK: Supple. CHEST/LUNGS: breathing on n/c O2 HEART/CARDIOVASCULAR: Heart rate stable on telemetry ABDOMEN: Visibly not distended SKIN: There is no rash NEURO: No focal motor deficit. Follows command. MUSCULOSKELETAL: No joint effusion EXTRIMITY: No swelling, no cyanosis or clubbing. PSYCH: Cooperative. - Constitutional Vitals: Temp Pulse Resp BP Pulse Ox 98.3 F 55 L 18 123/71 99 02/19/21 05:10 02/19/21 05:10 02/19/21 05:10 02/19/21 05:10 02/19/21 10:00 Plan Activity: advance as tolerated Weight Bearing Status: Weight Bear as Tolerated Diet: low fat, low salt Follow up with: AALIYAH LUKE [Other] - 7 Days Prescriptions: predniSONE [Deltasone] 40 mg PO QDAY #10 tablet Apixaban [Eliquis] 5 mg PO Q12HR #14 tablet Albuterol Mdi (or & Nicu Only) [ProAir HFA Inhaler] 2 puff IH QID PRN #8.5 gram PRN Reason: Shortness Of Breath Ascorbic Acid [Vitamin C] 500 mg PO BID #14 tablet Cholecalciferol Vit D3 [Vitamin D3 1,000 UNIT TAB] 1,000 unit PO QDAY #7 tablet Zinc Sulfate 220 mg PO BID #14 capsule
[2021-02-19 15:25] VITALS: BP 91/63
== END 2021-02-19 16:55 | disposition home health service (06) | DRG 871 ==
LOC: ED 13:23 → 3A 15:55
PROVIDERS: ADMIT Internal Medicine; ATTEND Internal Medicine
PROC: 5A0955A Assistance with Respiratory Ventilation, Greater than 96 Consecutive Hours, High Flow/Velocity Cannula (ICD-10-PCS; 2021-02-07)
PROC: 4A033R1 Measurement of Arterial Saturation, Peripheral, Percutaneous Approach (ICD-10-PCS; 2021-02-07)
PROC: XW033E5 Introduction of Remdesivir Anti-infective into Peripheral Vein, Percutaneous Approach, New Technology Group 5 (ICD-10-PCS; principal; 2021-02-08)
DX: A41.89 Other specified sepsis (principal); U07.1 COVID-19; J96.01 Acute respiratory failure with hypoxia; N17.0 Acute kidney failure with tubular necrosis; J12.82 Pneumonia due to coronavirus disease 2019; R65.20 Severe sepsis without septic shock; R79.1 Abnormal coagulation profile
CPT/HCPCS: 36415; 71045; 80048; 80053; 81001; 82140; 82565; 82728; 82805; 83615; 84145; 84484; 84703; 85007; 85025; 85027; 85379; 85610; 85730; 86140; 87040; 87086; 93005; 94760; 96374; G0378; J0456; J0692; J0696; J1100; J1940; J2920; J7030; J7040; J7050; J7512; U0003